=== PATIENT | male | born 1970 | race Caucasian/White ===

== ENCOUNTER 2016-09-15 01:55 | Emergency (ER) | payer MEDICARE ==
[~2016-09-15] VITALS: Ht 175.3 cm; Wt 63.5 kg
[2016-09-15 02:01] VITALS: BP 93/63
[2016-09-15] MEDS ORDERED: PROCHLORPERAZINE 10 MG/2 ML VIAL. IV ONE (03:00)
[2016-09-15] MEDS ORDERED: DIPHENHYDRAMINE 50 MG/ML VIAL IVP ONE (03:00)
--- NOTE | 2016-09-15 03:07 | RAD ---
CT head without contrast: Reason for examination: Headache with blurry vision. Axial images were obtained through the brain. No contrast was administered. Exposure: One or more of the following individualized dose reduction techniques were used for this examination: 1. Automated exposure control. 2. Adjustment of the mA and/or kV according to patient size. 3. Use of iterative reconstruction technique. Ventricular systems are symmetric and not abnormally dilated. No midline shift is seen. There is no evidence of intracranial hemorrhage, infarct, mass or edema. No abnormalities are seen in the orbits. The paranasal sinuses and mastoid air cells are clear. No acute skull abnormality is seen. Impression: No acute intracranial abnormality evident. Electronically signed by: Le Baker MD (Sep 15, 2016 03:06:52)
[2016-09-15 03:22] LABS: BASO % 0 % (0-3); EOS % 2 % (0-3); HEMATOCRIT 30.7 % (39.0-53.0); HEMOGLOBIN 9.6 g/dL (13.0-17.5); LYMPH # 1.8 x10^3/uL (1.0-4.8); LYMPH % 29 % (24-48); MEAN CORPUSCULAR HEMOGLOBIN 23 pg (25-35); MEAN CORPUSCULAR HGB CONC 31 g/dL (31-37); MEAN CORPUSCULAR VOLUME 75 fL (79-100); MONO % 7 % (0-9); NEUT % 62 % (31-73); PLATELET COUNT 209 x10^3/uL (140-400); RED BLOOD COUNT 4.11 x10^6/uL (4.30-5.70); RED CELL DISTRIBUTION WIDTH 17.6 % (11.5-14.5)
[2016-09-15 03:24] LABS: CALCIUM 8.4 mg/dL (8.5-10.1); CREATININE 0.8 mg/dL (0.7-1.3); GFR 103.6; POTASSIUM 3.7 mmol/L (3.5-5.1)
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
[2016-09-15 03:30] LABS: ALBUMIN 3.4 g/dL (3.4-5.0); ALBUMIN/GLOBULIN RATIO 1.1 (1.0-1.7); TOTAL BILIRUBIN 0.4 mg/dL (0.2-1.0); TOTAL PROTEIN 6.6 g/dL (6.4-8.2)
[2016-09-15 03:35] LABS: BARBITURATES NEG (NEG); BENZODIAZEPINES NEG (NEG); CANNABINOIDS NEG (NEG); COCAINE NEG (NEG); METHADONE NEG (NEG); OPIATES NEG (NEG); PHENCYCLIDINE NEG (NEG)
[2016-09-15 03:36] LABS: ETHANOL, URINE NEG (NEG)
[2016-09-15] MEDS ORDERED: INSULIN REGULAR 100 UNIT/ML 10ML VIAL. SQ ONE (04:30)
[2016-09-15] MEDS ORDERED: INSULIN ASPART 100 UNIT/ML 10ML VIAL. SQ ONE (04:30)
[2016-09-15] MEDS ORDERED: INSULIN ASPART 300 UNITS/3 ML INSULN.PEN SQ SCH (07:30)
--- NOTE | 2016-09-15 07:59 | RAD ---
Indication: Short of breath. Technique: Upright portable chest radiograph was obtained. No comparison is available. Findings: The lungs are clear. The cardiopulmonary silhouette is within normal limits. The bony structures are intact. Leads overlie the patient. Impression: No active pulmonary disease.
--- NOTE | 2016-09-15 11:18 | EKG ---
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
== END 2016-09-15 04:44 | disposition home or self-care (01) ==
LOC: ER 01:55
DX: F15.10 Other stimulant abuse, uncomplicated (principal); H53.8 Other visual disturbances; R05 Cough; R51 Headache; R06.02 Shortness of breath; F32.9 Major depressive disorder, single episode, unspecified; E11.9 Type 2 diabetes mellitus without complications; F20.9 Schizophrenia, unspecified; F41.9 Anxiety disorder, unspecified; Z88.0 Allergy status to penicillin; Z90.49 Acquired absence of other specified parts of digestive tract
CPT/HCPCS: 36415; 70450; 71010; 80053; 84484; 85027; 93005; G0481; J0780; J1200; J1815; 99285-25

== ENCOUNTER 2016-09-15 05:56 | Inpatient (IN) | payer MEDICARE, MEDICAID ==
[~2016-09-15] VITALS: Ht 180.3 cm; Wt 64.9 kg
--- NOTE | 2016-09-15 06:25 | PHYS DOC ---
Past Medical History Past Medical History: Anxiety, Depression, Diabetes-Type II, Schizophrenia Additional Past Medical Histor: panic attacks blood clots in liver Past Surgical History: Cholecystectomy, Tonsillectomy Alcohol Use: Occasionally Drug Use: None Adult General Chief Complaint Chief Complaint: OVERDOSE HPI HPI Patient is a 46 year old male who presents with AMS secondary to reported seroquel overdose. Patient was seen overnight for a number of complaints (see prior note). He was discharged after full work up including CT head, CXR, labs. Once in the lobby patient says he took 800mg seroquel and since then has had altered mental status. He was to go [facility] but was too intoxicated to be accepted. He therefore returns to the ED. He denies any attempt to hurt himself, only stating that he simply wants to go to sleep. Aside from symptoms he voiced during prior visit, no acute complaints. Review of Systems Review of Systems Constitutional: Denies fever or chills Eyes: Blurry vision. Denies eye pain HENT: Denies nasal congestion or sore throat Respiratory: Denies cough or shortness of breath Cardiovascular: Denies chest pain GI: Denies abdominal pain, nausea, vomiting, bloody stools or diarrhea : Denies dysuria or hematuria Musculoskeletal: Denies back pain or joint pain Integument: Denies rash or skin lesions Neurologic: Dizzy, mild headache. Denies focal weakness or sensory changes Allergies Allergies Allergies Coded Allergies Type Severity Reaction Last Updated Verified Penicillins Allergy Intermediate 09/15/16 Yes Physical Exam Physical Exam Constitutional: Well developed, well nourished, no acute distress, non-toxic appearance HENT: Normocephalic, atraumatic, bilateral external ears normal Eyes: PERRL, EOMI, conjunctiva normal, no discharge Neck: Normal range of motion, no stridor Cardiovascular: Heart rate normal, regular rhythm, no murmur Lungs & Thorax: Bilateral breath sounds clear to auscultation Abdomen: Bowel sounds normal, soft, non-distended, no TTP Skin: Warm, dry, no erythema, no rash Extremities: No obvious deformity, no edema Neurologic: Somnolent but arousable, oriented X 3, GCS 14 (point off for closed eyes), CN II-XII grossly intact, slurred speech, strength intact and symmetrical throughout, sensation to light touch intact throughout Current Patient Data Vital Signs Vital Signs Date Time Temp Pulse Resp B/P Pulse Ox O2 Delivery O2 Flow Rate FiO2 09/15/16 06:32 84 16 106/66 96 Room Air 09/15/16 06:19 97.8 97.8 Lab Values Laboratory Tests Test 09/15/16 06:17 Urine Opiates Screen Neg (NEG) Urine Methadone Screen Neg (NEG) Urine Barbiturates Neg (NEG) Urine Phencyclidine Screen Neg (NEG) Urine Amphetamine/Methamphetamine Pos (NEG) Urine Benzodiazepines Screen Neg (NEG) Urine Cocaine Screen Neg (NEG) Urine Cannabinoids Screen Neg (NEG) Urine Ethyl Alcohol Neg (NEG) EKG EKG EKG (my read): sinus rhythm, rate 88, normal axis, QTc 493ms, nonspecific ST changes Radiology/Procedures Radiology/Procedures [] Course & Med Decision Making Course & Med Decision Making Pertinent Labs and Imaging studies reviewed. (See chart for details) Patient is 46 year old male who presents with AMS. Apparently due to seroquel overdose. Already had imaging, labs done overnight at previous encounter. Will obtain EKG, acetaminophen and salicylate levels, repeat urine drug screen. Will need admission for further monitoring. Discussed with Dr. Morris, will admit under her care for further evaluation and treatment. Dragon Disclaimer Dragon Disclaimer This electronic medical record was generated, in whole or in part, using a voice recognition dictation system. Departure Departure Impression: Primary Impression: Altered mental status Additional Impression: Overdose Disposition: ADMITTED INPATIENT Admitting Physician: Giovanni Morris Condition: STABLE Referrals: NO PCP (PCP) Problem Qualifiers SHRUTHI DAWSON MD Sep 15, 2016 06:25
[2016-09-15 06:42] LABS: BARBITURATES NEG (NEG); BENZODIAZEPINES NEG (NEG); CANNABINOIDS NEG (NEG); COCAINE NEG (NEG); METHADONE NEG (NEG); OPIATES NEG (NEG); PHENCYCLIDINE NEG (NEG)
[2016-09-15 06:43] LABS: ETHANOL, URINE NEG (NEG)
[2016-09-15] MEDS ORDERED: ACETAMINOPHEN 325 MG TABLET. PO PRN (06:45)
[2016-09-15] MEDS ORDERED: DEXTROSE 50% 25 GM / 50ML DISP.SYRIN. IV PRN (06:45)
[2016-09-15] MEDS: INSULIN ASPART 300 UNITS/3 ML INSULN.PEN SQ SCH ×3 (07:57→17:59)
[2016-09-15 09:43] LABS: ETHANOL < 10 mg/dL (0-10)
[2016-09-15] MEDS ORDERED: INFLUENZA VAX SCREEN BY RX. MC ONE (11:00)
--- NOTE | 2016-09-15 11:18 | EKG ---
[facility] [address] [place] [address] Test Date: 2016-09-15 Test Time: 06:16:26 Pat Name: GEOFF COTTON Department: Room: [facility] Gender: M [place] Applier: KATYA EMT : 1970 Requested By: SHRUTHI DAWSON Order Number: [id number] Reading MD: Annel Cowan Measurements Intervals [place] Rate: 88 P: 66 MS: 178 QRS: 83 QRSD: 102 T: 50 QT: 404 QTc: 493 Interpretive Statements SINUS RHYTHM PREMATURE VENTRICULAR CONTRACTIONS LEFT ATRIAL ABNORMALITY ABNORMAL ECG RI6.01 No previous ECG available for comparison Electronically Signed On 09-15-2016 15:21:15 CDT by Annel Cowan
[2016-09-15 15:00] VITALS: BP 115/73
[2016-09-15] MEDS ORDERED: LORAZEPAM 2 MG/ML VIAL IV ONE (18:15)
[2016-09-15 19:10] VITALS: BP 107/75
[2016-09-15] MEDS ORDERED: LORAZEPAM 1 MG TABLET. PO PRN (19:30)
[2016-09-15 23:01] VITALS: BP 116/68
[2016-09-16 03:30] VITALS: BP 108/68
[2016-09-16 07:00] VITALS: BP 111/69
[2016-09-16] MEDS: INSULIN ASPART 300 UNITS/3 ML INSULN.PEN SQ SCH ×3 (08:00→17:36)
--- NOTE | 2016-09-16 10:59 | PDOC1 ---
History and Physical Date of Admission Date of Admission DATE: 09/16/16 TIME: 10:50 History of Present Illness History of Present Illness Patient is a 46 year old male admit w/ AMS secondary to reported seroquel overdose. UDS showed amphetamine he is not very helpful with history, cannot remember some meds or doses he would like to go to [facility], and he needs help and time for psych meds to take effect he has not other complaint he cannot deny that he was trying to hurt himself taking too much seroquel Past Medical History Psych: Bipolar, Depression, Other (schizotypal) Family History Family History: Family History Unknown Social History Smoke: 1 pack per day ALCOHOL: none Current Problem List Problem List Problems Medical Problems: (1) Altered mental status Status: Acute (2) Overdose Status: Acute Problems: Current Medications Current Medications Current Medications Acetaminophen (Tylenol) 650 mg PRN Q4HRS PRN PO FEVER; Start 09/15/16 at 06:45 ; Stop 09/16/16 at 06:44; Status DC Insulin Aspart (Novolog) 0-7 UNITS TIDWMEALS SQ Last administered on 09/15/16t 17:59; Start 09/15/16 at 08:00 Dextrose 12.5 gm PRN Q15MIN PRN IV SEE COMMENTS; Start 09/15/16 at 06:45 Info (Do NOT chart on this placeholder) 1 each 1X ONCE MC ; Start 09/15/16 at 11:00; Stop 09/15/16 at 11:06; Status DC Lorazepam (Ativan) 2 mg 1X ONCE IV ; Start 09/15/16 at 18:15; Stop 09/15/16 at 18:16; Status DC Lorazepam (Ativan) 2 mg 1X PRN PRN PO AGITATION; Start 09/15/16 at 19:30 Allergies Allergies: Coded Allergies: Penicillins (Verified Allergy, Intermediate, 09/15/16) ROS General: No: Appetite, Chills, Fatigue, Malaise, Night Sweats, Other PSYCHOLOGICAL ROS: YES: Anxiety Eyes: No Blurry vision, No Decreased vision, No Double vision, No Dry eyes, No Excessive tearing, No Eye Pain, No Itchy Eyes, No Loss of vision, No Other, No Photophobia, No Scotomata, No Uses contacts, No Uses glasses HEENT: YES: Heacaches, No: Epistaxis, Hearing change, Nasal congestion, Nasal discharge, Oral lesions, Other, Sinus pain, Sneezing, Snoring, Sore Throat, Tinnitus, Vertigo, Visual Changes, Vocal changes Gastrointestinal: Yes Nausea, No Abdominal Pain, No Constipation, No Diarrhea, No Hematochezia, No Melena, No Other, No Vomiting Genitourinary: No , No , No , No , No , No , No , No Discharge, No Dysuria, No Flank Pain, No Frequency, No Hematuria, No Incontinence, No Other, No Pain, No Retention, No Urgency Musculoskeletal: No Gait Disturbance, No Joint Pain, No Joint Stiffness, No Joint Swelling, No Muscle Pain, No Muscular Weakness, No Other, No Pain In:, No Swelling In: Neurological: No Behavorial Changes, No Bowel/Bladder ControlChng, No Confusion , No Dizziness, No Gait Disturbance, No Headaches, No Impaired Coord/balance, No Memory Loss, No Numbness/Tingling, No Other, No Seizures, No Speech Problems , No Tremors, No Visual Changes, No Weakness Skin: No Acne, No Dry Skin, No Eczema, No Hair Changes, No Lumps, No Mole Changes, No Mottling, No Nail Changes, No Other, No Pruritus, No Rash, No Skin Lesion Changes Physical Exam General: Alert, Oriented X3, Cooperative, No acute distress HEENT: Atraumatic, PERRLA Lungs: Clear to auscultation Heart: S1S2, no murmurs Abdomen: Soft Extremities: No edema Skin: No rashes Neuro: Normal tone Psych/Mental Status: Mood NL Vitals Vitals Vital Signs Date Time Temp Pulse Resp B/P Pulse Ox O2 Delivery O2 Flow Rate FiO2 09/16/16 07:00 98.0 72 18 111/69 97 Room Air 98.0 Labs Labs Laboratory Tests Test 09/15/16 06:17 09/15/16 06:25 09/15/16 12:23 09/15/16 17:07 Urine Opiates Screen Neg (NEG) Urine Methadone Screen Neg (NEG) Urine Barbiturates Neg (NEG) Urine Phencyclidine Screen Neg (NEG) Urine Amphetamine/Methamphetamine Pos (NEG) Urine Benzodiazepines Screen Neg (NEG) Urine Cocaine Screen Neg (NEG) Urine Cannabinoids Screen Neg (NEG) Urine Ethyl Alcohol Neg (NEG) Salicylates Level < 2.8mg/dL (2.8-20.0) Salicylate Last Dose Date Unknown Salicylate Last Dose Time Unknown Acetaminophen Level < 2mcg/ml (10-30) Acetaminophen Last Dose Date Unknown Acetaminophen Last Dose Time Unknown Ethyl Alcohol Level < 10mg/dL (0-10) Glucose (Fingerstick) 76mg/dL (70-99) 300mg/dL (70-99) Test 09/15/16 20:31 09/16/16 06:58 Glucose (Fingerstick) 168mg/dL (70-99) 265mg/dL (70-99) Laboratory Tests Test 09/15/16 12:23 09/15/16 17:07 09/15/16 20:31 09/16/16 06:58 Glucose (Fingerstick) 76mg/dL (70-99) 300mg/dL (70-99) 168mg/dL (70-99) 265mg/dL (70-99) VTE Prophylaxis Ordered VTE Prophylaxis Devices: No VTE Pharmacological Prophylaxi: No Assessment/Plan Assessment/Plan seroquel overdose, intentional, he cannot explain as not suicide, he wants to be admitted as Psych inpatient, PAT team eval on 1:1 Bipolar and schizoaffective Dm1, poor control, mealtime, levemir and SSI admit, needs clearnace, labs and urine ordered he feels well JAMIL Dennis AM, MD Sep 16, 2016 10:59
[2016-09-16 11:00] VITALS: BP 111/66
[2016-09-16 11:55] LABS: BASO % 0 % (0-3); EOS % 2 % (0-3); HEMATOCRIT 32.7 % (39.0-53.0); LYMPH # 1.2 x10^3/uL (1.0-4.8); LYMPH % 27 % (24-48); MEAN CORPUSCULAR HEMOGLOBIN 23 pg (25-35); MEAN CORPUSCULAR HGB CONC 31 g/dL (31-37); MEAN CORPUSCULAR VOLUME 75 fL (79-100); MONO % 6 % (0-9); NEUT % 64 % (31-73); PLATELET COUNT 212 x10^3/uL (140-400); RED BLOOD COUNT 4.36 x10^6/uL (4.30-5.70); RED CELL DISTRIBUTION WIDTH 18.4 % (11.5-14.5); WHITE BLOOD COUNT 4.5 x10^3/uL (4.0-11.0)
[2016-09-16 12:16] LABS: ALBUMIN 3.1 g/dL (3.4-5.0); ALBUMIN/GLOBULIN RATIO 0.9 (1.0-1.7); CALCIUM 8.5 mg/dL (8.5-10.1); CREATININE 0.7 mg/dL (0.7-1.3); GFR 120.9; POTASSIUM 4.5 mmol/L (3.5-5.1); TOTAL BILIRUBIN 0.3 mg/dL (0.2-1.0); TOTAL PROTEIN 6.6 g/dL (6.4-8.2)
[2016-09-16] MEDS: INSULIN DETEMIR 300 UNITS/3 ML INSULN.PEN. SQ SCH (12:28)
--- NOTE | 2016-09-16 14:09 | PDOC ---
PROGRESS NOTES Chief Complaint Chief Complaint overdose bipolar, schizoaffective DM1 History of Present Illness History of Present Illness Discussed with PAT team, pt wants inpatient psych tx Vitals Vitals Vital Signs Date Time Temp Pulse Resp B/P Pulse Ox O2 Delivery O2 Flow Rate FiO2 09/16/16 11:00 98.2 77 18 111/66 96 Room Air 98.2 Physical Exam General: Alert, Oriented X3 Heart: Regular rate Lungs: Clear, Wheezing Abdomen: Normal bowel sounds, Soft Extremities: No clubbing, No cyanosis Skin: No breakdown Labs LABS Laboratory Tests Test 09/15/16 17:07 09/15/16 20:31 09/16/16 06:58 09/16/16 10:53 Glucose (Fingerstick) 300mg/dL (70-99) 168mg/dL (70-99) 265mg/dL (70-99) 340mg/dL (70-99) Test 09/16/16 11:15 White Blood Count 4.5x10^3/uL (4.0-11.0) Red Blood Count 4.36x10^6/uL (4.30-5.70) Hemoglobin 10.0g/dL (13.0-17.5) Hematocrit 32.7% (39.0-53.0) Mean Corpuscular Volume 75fL (79-100) Mean Corpuscular Hemoglobin 23pg (25-35) Mean Corpuscular Hemoglobin Concent 31g/dL (31-37) Red Cell Distribution Width 18.4% (11.5-14.5) Platelet Count 212x10^3/uL (140-400) Neutrophils (%) (Auto) 64% (31-73) Lymphocytes (%) (Auto) 27% (24-48) Monocytes (%) (Auto) 6% (0-9) Eosinophils (%) (Auto) 2% (0-3) Basophils (%) (Auto) 0% (0-3) Neutrophils # (Auto) 2.9x10^3uL (1.8-7.7) Lymphocytes # (Auto) 1.2x10^3/uL (1.0-4.8) Monocytes # (Auto) 0.3x10^3/uL (0.0-1.1) Eosinophils # (Auto) 0.1x10^3/uL (0.0-0.7) Basophils # (Auto) 0.0x10^3/uL (0.0-0.2) Sodium Level 141mmol/L (136-145) Potassium Level 4.5mmol/L (3.5-5.1) Chloride Level 104mmol/L (98-107) Carbon Dioxide Level 29mmol/L (21-32) Anion Gap 8 (6-14) Blood Urea Nitrogen 13mg/dL (8-26) Creatinine 0.7mg/dL (0.7-1.3) Estimated GFR (Cockcroft-Gault) 120.9 BUN/Creatinine Ratio 19 (6-20) Glucose Level 269mg/dL (70-99) Calcium Level 8.5mg/dL (8.5-10.1) Total Bilirubin 0.3mg/dL (0.2-1.0) Aspartate Amino Transf (AST/SGOT) 29U/L (15-37) Alanine Aminotransferase (ALT/SGPT) 45U/L (16-63) Alkaline Phosphatase 95U/L (46-116) Total Protein 6.6g/dL (6.4-8.2) Albumin 3.1g/dL (3.4-5.0) Albumin/Globulin Ratio 0.9 (1.0-1.7) Review of Systems Review of Systems NO NV/D Assessment and Plan Assessmemt and Plan Problems Medical Problems: (1) Altered mental status Status: Acute (2) Overdose Status: Acute Problems: Comment Review of Relevant I have reviewed the following items oli (where applicable) has been applied. Labs Laboratory Tests Test 09/15/16 06:17 09/15/16 06:25 09/15/16 12:23 09/15/16 17:07 Urine Opiates Screen Neg (NEG) Urine Methadone Screen Neg (NEG) Urine Barbiturates Neg (NEG) Urine Phencyclidine Screen Neg (NEG) Urine Amphetamine/Methamphetamine Pos (NEG) Urine Benzodiazepines Screen Neg (NEG) Urine Cocaine Screen Neg (NEG) Urine Cannabinoids Screen Neg (NEG) Urine Ethyl Alcohol Neg (NEG) Salicylates Level < 2.8mg/dL (2.8-20.0) Salicylate Last Dose Date Unknown Salicylate Last Dose Time Unknown Acetaminophen Level < 2mcg/ml (10-30) Acetaminophen Last Dose Date Unknown Acetaminophen Last Dose Time Unknown Ethyl Alcohol Level < 10mg/dL (0-10) Glucose (Fingerstick) 76mg/dL (70-99) 300mg/dL (70-99) Test 09/15/16 20:31 09/16/16 06:58 09/16/16 10:53 09/16/16 11:15 Glucose (Fingerstick) 168mg/dL (70-99) 265mg/dL (70-99) 340mg/dL (70-99) White Blood Count 4.5x10^3/uL (4.0-11.0) Red Blood Count 4.36x10^6/uL (4.30-5.70) Hemoglobin 10.0g/dL (13.0-17.5) Hematocrit 32.7% (39.0-53.0) Mean Corpuscular Volume 75fL (79-100) Mean Corpuscular Hemoglobin 23pg (25-35) Mean Corpuscular Hemoglobin Concent 31g/dL (31-37) Red Cell Distribution Width 18.4% (11.5-14.5) Platelet Count 212x10^3/uL (140-400) Neutrophils (%) (Auto) 64% (31-73) Lymphocytes (%) (Auto) 27% (24-48) Monocytes (%) (Auto) 6% (0-9) Eosinophils (%) (Auto) 2% (0-3) Basophils (%) (Auto) 0% (0-3) Neutrophils # (Auto) 2.9x10^3uL (1.8-7.7) Lymphocytes # (Auto) 1.2x10^3/uL (1.0-4.8) Monocytes # (Auto) 0.3x10^3/uL (0.0-1.1) Eosinophils # (Auto) 0.1x10^3/uL (0.0-0.7) Basophils # (Auto) 0.0x10^3/uL (0.0-0.2) Sodium Level 141mmol/L (136-145) Potassium Level 4.5mmol/L (3.5-5.1) Chloride Level 104mmol/L (98-107) Carbon Dioxide Level 29mmol/L (21-32) Anion Gap 8 (6-14) Blood Urea Nitrogen 13mg/dL (8-26) Creatinine 0.7mg/dL (0.7-1.3) Estimated GFR (Cockcroft-Gault) 120.9 BUN/Creatinine Ratio 19 (6-20) Glucose Level 269mg/dL (70-99) Calcium Level 8.5mg/dL (8.5-10.1) Total Bilirubin 0.3mg/dL (0.2-1.0) Aspartate Amino Transf (AST/SGOT) 29U/L (15-37) Alanine Aminotransferase (ALT/SGPT) 45U/L (16-63) Alkaline Phosphatase 95U/L (46-116) Total Protein 6.6g/dL (6.4-8.2) Albumin 3.1g/dL (3.4-5.0) Albumin/Globulin Ratio 0.9 (1.0-1.7) Laboratory Tests Test 09/15/16 17:07 09/15/16 20:31 09/16/16 06:58 09/16/16 10:53 Glucose (Fingerstick) 300mg/dL (70-99) 168mg/dL (70-99) 265mg/dL (70-99) 340mg/dL (70-99) Test 09/16/16 11:15 White Blood Count 4.5x10^3/uL (4.0-11.0) Red Blood Count 4.36x10^6/uL (4.30-5.70) Hemoglobin 10.0g/dL (13.0-17.5) Hematocrit 32.7% (39.0-53.0) Mean Corpuscular Volume 75fL (79-100) Mean Corpuscular Hemoglobin 23pg (25-35) Mean Corpuscular Hemoglobin Concent 31g/dL (31-37) Red Cell Distribution Width 18.4% (11.5-14.5) Platelet Count 212x10^3/uL (140-400) Neutrophils (%) (Auto) 64% (31-73) Lymphocytes (%) (Auto) 27% (24-48) Monocytes (%) (Auto) 6% (0-9) Eosinophils (%) (Auto) 2% (0-3) Basophils (%) (Auto) 0% (0-3) Neutrophils # (Auto) 2.9x10^3uL (1.8-7.7) Lymphocytes # (Auto) 1.2x10^3/uL (1.0-4.8) Monocytes # (Auto) 0.3x10^3/uL (0.0-1.1) Eosinophils # (Auto) 0.1x10^3/uL (0.0-0.7) Basophils # (Auto) 0.0x10^3/uL (0.0-0.2) Sodium Level 141mmol/L (136-145) Potassium Level 4.5mmol/L (3.5-5.1) Chloride Level 104mmol/L (98-107) Carbon Dioxide Level 29mmol/L (21-32) Anion Gap 8 (6-14) Blood Urea Nitrogen 13mg/dL (8-26) Creatinine 0.7mg/dL (0.7-1.3) Estimated GFR (Cockcroft-Gault) 120.9 BUN/Creatinine Ratio 19 (6-20) Glucose Level 269mg/dL (70-99) Calcium Level 8.5mg/dL (8.5-10.1) Total Bilirubin 0.3mg/dL (0.2-1.0) Aspartate Amino Transf (AST/SGOT) 29U/L (15-37) Alanine Aminotransferase (ALT/SGPT) 45U/L (16-63) Alkaline Phosphatase 95U/L (46-116) Total Protein 6.6g/dL (6.4-8.2) Albumin 3.1g/dL (3.4-5.0) Albumin/Globulin Ratio 0.9 (1.0-1.7) Medications Current Medications Acetaminophen (Tylenol) 650 mg PRN Q4HRS PRN PO FEVER; Start 09/15/16 at 06:45 ; Stop 09/16/16 at 06:44; Status DC Insulin Aspart (Novolog) 0-7 UNITS TIDWMEALS SQ Last administered on 09/15/16t 17:59; Start 09/15/16 at 08:00; Stop 09/16/16 at 11:02; Status DC Dextrose 12.5 gm PRN Q15MIN PRN IV SEE COMMENTS; Start 09/15/16 at 06:45 Info (Do NOT chart on this placeholder) 1 each 1X ONCE MC ; Start 09/15/16 at 11:00; Stop 09/15/16 at 11:06; Status DC Lorazepam (Ativan) 2 mg 1X ONCE IV ; Start 09/15/16 at 18:15; Stop 09/15/16 at 18:16; Status DC Lorazepam (Ativan) 2 mg 1X PRN PRN PO AGITATION; Start 09/15/16 at 19:30 Insulin Aspart (Novolog) 10 units TIDAC SQ Last administered on 09/16/16 12:27 ; Start 09/16/16 at 11:30 Insulin Detemir (Levemir) 12 units DAILY10 SQ Last administered on 09/16/16 12 :28; Start 09/16/16 at 11:00 Vitals/I & O Vital Sign - Last 24 Hours 09/15/16 09/15/16 09/15/16 09/16/16 15:00 19:10 23:01 03:30 Temp 99.7 98.1 97.9 99.7 98.1 97.9 Pulse 90 76 70 63 Resp B/P 115/73 107/75 116/68 108/68 Pulse Ox 98 98 97 99 O2 Delivery Room Air Room Air Room Air Room Air 09/16/16 09/16/16 09/16/16 07:00 08:00 11:00 Temp 98.0 98.2 98.0 98.2 Pulse 72 77 Resp B/P 111/69 111/66 Pulse Ox 97 96 O2 Delivery Room Air Room Air Room Air Intake and Output 09/15/16 09/15/16 09/16/16 15:00 23:00 07:00 Intake Total 2040 ml 750 ml Balance 2040 ml 750 ml JAMIL CAMARGO MD Sep 16, 2016 14:09
[2016-09-16 15:00] VITALS: BP 108/71
[2016-09-16 15:37] LABS: % SAT IRON 12 % (15-34); IRON,SERUM 40 ug/dL (65-175)
[2016-09-16 15:44] LABS: BILIRUBIN,URINE NEGATIVE (NEG); GLUCOSE,URINE 100 mg/dL (NEG); NITRITE,URINE NEGATIVE (NEG); PROTEIN,URINE NEGATIVE (NEG-TRACE)
[2016-09-16 16:03] LABS: BACTERIA,URINE 0 /HPF (0-FEW); RBC,URINE 0 /HPF (0-2); WBC,URINE 0 /HPF (0-4)
[2016-09-16 19:00] VITALS: BP 113/67
[2016-09-16] MEDS ORDERED: PNEUMOCOCCAL VAX SCREEN BY RX. MC ONE (22:30)
[2016-09-16] MEDS ORDERED: INFLUENZA VAX SCREEN BY RX. MC ONE (22:30)
[2016-09-16 22:53] VITALS: BP 110/69
[2016-09-17 03:00] VITALS: BP 111/67
--- NOTE | 2016-09-17 05:35 | ACF ---
Admission Forms Criteria MENTAL STATUS CHANGE Clinical Indications for Inpatient Care (Place 'X' for any and all applicable criteria): Ongoing inpatient care may be needed for ANY ONE of the following(1)(2)(3)(5)(6) : [X]I. Suspected serious etiology (eg, medical disorder, [employer] event) of mental status change [ ]II. Danger to self or others not manageable at lower level of care [ ]III. Grave disability (eg, inability to perform self care necessary at lower level of care) [ ]IV. Agitation or inappropriate behavior interfering with care for primary condition (eg, attempting to discontinue lines or drains prematurely, unable to cooperate with respiratory care) [ ]V. Delirium [A] [D][E] as described by ANY ONE of the following(26): [ ]a) Delirium due to alcohol or sedative [F] withdrawal [ ]b) Delirium of uncertain etiology that has not responded to appropriate empiric treatment [ ]c) Delirium that prevents performance of a life-sustaining function (eg, feeding or hydrating oneself) [ ]. General contraindications and/or Inappropriate clinical situations for Observational Care in patients with Mental Status Change, when ANY ONE of the following is required: [ ]a) Prediction of prolongation of LOS based on ANY ONE of the following may be considered as a contraindication for observational care 2, 3, 4, 5, 6, 7, 8, 9, 10, 11 [ ]i) Age > 65 yrs. [ ]ii) Patient arriving by ambulance [ ]iii) Patient with high acuity [ ]iv) Patient requiring vital sign monitoring [ ]v) Patient on IV medication [ ]b) Systolic blood pressures 180mmHg 3,12 [ ]c) Patient with altered mental status including delirium and other alteration of consciousness, (3) [ ]d) Patient whose discharge disposition will be to a detention home or rehabilitation home should not be managed in Emergency Department Observation Unit. CMS rule requires 3 days hospital stay before such placement.3,13 [ ]e) Patient with failure to thrive due to broad array of etiologies 3,16,17 [ ]f) Inability to ambulate 3,14 Extended stay beyond goal length of stay for the primary condition may be needed until ALL of the following are present(3)(5): [ ]a) Underlying medical etiology of mental status change is absent, or has been established and adequately treated [ ]b) Danger to self or others is absent or manageable at lower level of care. [ ]c) Behavior crisis management, including physical or chemical restraints, is not required or available at lower level of car [ ]d) Substance or alcohol withdrawal is absent or manageable at lower level of care. [ ]e) Behavioral symptoms (eg, agitation, somnolence, inappropriate behavior) are absent, or are manageable at lower level of care. The original [facility] content created by [facility] has been revised. The portions of the content which have been revised are identified through the use of italic text or in bold, and [facility] has neither reviewed nor approved the modified material. All other unmodified content is copyright [facility]. Please see references footnoted in the original [facility] edition 2016 Admission Criteria Met?: Yes SHELTON VALDOVINOS Sep 17, 2016 05:34
[2016-09-17 07:00] VITALS: BP 112/66
[2016-09-17] MEDS: INSULIN ASPART 300 UNITS/3 ML INSULN.PEN SQ SCH ×2 (08:00→12:02)
[2016-09-17] MEDS ORDERED: PNEUMOC CONJ VACC 23-VALENT 0.5 ML VIAL. VAX IM ONE (09:00)
[2016-09-17] MEDS ORDERED: FLU VACC QUAD 2016-17 (36MOS+)/PF 0.5 ML SYRINGE. VAX IM ONE (09:00)
[2016-09-17] MEDS ORDERED: NICOTINE 21MG PATCH. TD PRN (09:15)
[2016-09-17] MEDS ORDERED: NICOTINE POLACRILEX 2MG GUM PACKAGE of 12. BC PRN (09:15)
[2016-09-17] MEDS ORDERED: IRON POLYSACCHARIDE COMPLEX 150 MG CAPSULE PO SCH (09:30)
--- NOTE | 2016-09-17 09:52 | PDOC ---
PROGRESS NOTES Chief Complaint Chief Complaint intentional overdose, suicide attempt bipolar 2 disorder, schizoaffective DM1 microcytic anemia tobacco use methamphetamine pos urine on admit History of Present Illness History of Present Illness feels better no current complaint tobacco replacement ordered Pt is medically cleared to transfer to inpatient Psych facility. will need outpatient f/u of DM1, would benefit from lisinopril for renal protection Iron PO supplement started, he should get screening colonoscopy when he is mentally stable to do so DC order placed Vitals Vitals Vital Signs Date Time Temp Pulse Resp B/P Pulse Ox O2 Delivery O2 Flow Rate FiO2 09/17/16 08:00 Room Air 09/17/16 07:00 97.8 55 18 112/66 97 97.8 Physical Exam General: Alert, Oriented X3, Cooperative, No acute distress Heart: Regular rate Lungs: Clear, Wheezing Abdomen: Soft Extremities: No edema Skin: No rashes Labs LABS Laboratory Tests Test 09/16/16 10:53 09/16/16 11:15 09/16/16 15:00 09/16/16 19:51 Glucose (Fingerstick) 340mg/dL (70-99) 107mg/dL (70-99) White Blood Count 4.5x10^3/uL (4.0-11.0) Red Blood Count 4.36x10^6/uL (4.30-5.70) Hemoglobin 10.0g/dL (13.0-17.5) Hematocrit 32.7% (39.0-53.0) Mean Corpuscular Volume 75fL (79-100) Mean Corpuscular Hemoglobin 23pg (25-35) Mean Corpuscular Hemoglobin Concent 31g/dL (31-37) Red Cell Distribution Width 18.4% (11.5-14.5) Platelet Count 212x10^3/uL (140-400) Neutrophils (%) (Auto) 64% (31-73) Lymphocytes (%) (Auto) 27% (24-48) Monocytes (%) (Auto) 6% (0-9) Eosinophils (%) (Auto) 2% (0-3) Basophils (%) (Auto) 0% (0-3) Neutrophils # (Auto) 2.9x10^3uL (1.8-7.7) Lymphocytes # (Auto) 1.2x10^3/uL (1.0-4.8) Monocytes # (Auto) 0.3x10^3/uL (0.0-1.1) Eosinophils # (Auto) 0.1x10^3/uL (0.0-0.7) Basophils # (Auto) 0.0x10^3/uL (0.0-0.2) Sodium Level 141mmol/L (136-145) Potassium Level 4.5mmol/L (3.5-5.1) Chloride Level 104mmol/L (98-107) Carbon Dioxide Level 29mmol/L (21-32) Anion Gap 8 (6-14) Blood Urea Nitrogen 13mg/dL (8-26) Creatinine 0.7mg/dL (0.7-1.3) Estimated GFR (Cockcroft-Gault) 120.9 BUN/Creatinine Ratio 19 (6-20) Glucose Level 269mg/dL (70-99) Calcium Level 8.5mg/dL (8.5-10.1) Iron Level 40ug/dL (65-175) Total Iron Binding Capacity 329ug/dL (250-450) Iron Saturation 12% (15-34) Total Bilirubin 0.3mg/dL (0.2-1.0) Aspartate Amino Transf (AST/SGOT) 29U/L (15-37) Alanine Aminotransferase (ALT/SGPT) 45U/L (16-63) Alkaline Phosphatase 95U/L (46-116) Total Protein 6.6g/dL (6.4-8.2) Albumin 3.1g/dL (3.4-5.0) Albumin/Globulin Ratio 0.9 (1.0-1.7) Urine Collection Type Unknown Urine Color Yellow Urine Clarity Cloudy Urine pH 7.0 Urine Specific Savery 1.020 Urine Protein Negativemg/dL (NEG-TRACE) Urine Glucose (UA) 100mg/dL (NEG) Urine Ketones (Stick) Negativemg/dL (NEG) Urine Blood Negative (NEG) Urine Nitrite Negative (NEG) Urine Bilirubin Negative (NEG) Urine Urobilinogen Dipstick 2.0mg/dL (0.2 mg/dL) Urine Leukocyte Esterase Negative (NEG) Urine RBC 0/HPF (0-2) Urine WBC 0/HPF (0-4) Urine Squamous Epithelial Cells None/LPF Urine Amorphous Sediment Present/HPF Urine Bacteria 0/HPF (0-FEW) Test 09/17/16 07:02 Glucose (Fingerstick) 268mg/dL (70-99) Review of Systems Review of Systems no n.v.d Assessment and Plan Assessmemt and Plan Problems Medical Problems: (1) Altered mental status Status: Acute (2) Overdose Status: Acute Problems: Comment Review of Relevant I have reviewed the following items oli (where applicable) has been applied. Labs Laboratory Tests Test 09/15/16 12:23 09/15/16 17:07 09/15/16 20:31 09/16/16 06:58 Glucose (Fingerstick) 76mg/dL (70-99) 300mg/dL (70-99) 168mg/dL (70-99) 265mg/dL (70-99) Test 09/16/16 10:53 09/16/16 11:15 09/16/16 15:00 09/16/16 19:51 Glucose (Fingerstick) 340mg/dL (70-99) 107mg/dL (70-99) White Blood Count 4.5x10^3/uL (4.0-11.0) Red Blood Count 4.36x10^6/uL (4.30-5.70) Hemoglobin 10.0g/dL (13.0-17.5) Hematocrit 32.7% (39.0-53.0) Mean Corpuscular Volume 75fL (79-100) Mean Corpuscular Hemoglobin 23pg (25-35) Mean Corpuscular Hemoglobin Concent 31g/dL (31-37) Red Cell Distribution Width 18.4% (11.5-14.5) Platelet Count 212x10^3/uL (140-400) Neutrophils (%) (Auto) 64% (31-73) Lymphocytes (%) (Auto) 27% (24-48) Monocytes (%) (Auto) 6% (0-9) Eosinophils (%) (Auto) 2% (0-3) Basophils (%) (Auto) 0% (0-3) Neutrophils # (Auto) 2.9x10^3uL (1.8-7.7) Lymphocytes # (Auto) 1.2x10^3/uL (1.0-4.8) Monocytes # (Auto) 0.3x10^3/uL (0.0-1.1) Eosinophils # (Auto) 0.1x10^3/uL (0.0-0.7) Basophils # (Auto) 0.0x10^3/uL (0.0-0.2) Sodium Level 141mmol/L (136-145) Potassium Level 4.5mmol/L (3.5-5.1) Chloride Level 104mmol/L (98-107) Carbon Dioxide Level 29mmol/L (21-32) Anion Gap 8 (6-14) Blood Urea Nitrogen 13mg/dL (8-26) Creatinine 0.7mg/dL (0.7-1.3) Estimated GFR (Cockcroft-Gault) 120.9 BUN/Creatinine Ratio 19 (6-20) Glucose Level 269mg/dL (70-99) Calcium Level 8.5mg/dL (8.5-10.1) Iron Level 40ug/dL (65-175) Total Iron Binding Capacity 329ug/dL (250-450) Iron Saturation 12% (15-34) Total Bilirubin 0.3mg/dL (0.2-1.0) Aspartate Amino Transf (AST/SGOT) 29U/L (15-37) Alanine Aminotransferase (ALT/SGPT) 45U/L (16-63) Alkaline Phosphatase 95U/L (46-116) Total Protein 6.6g/dL (6.4-8.2) Albumin 3.1g/dL (3.4-5.0) Albumin/Globulin Ratio 0.9 (1.0-1.7) Urine Collection Type Unknown Urine Color Yellow Urine Clarity Cloudy Urine pH 7.0 Urine Specific Savery 1.020 Urine Protein Negativemg/dL (NEG-TRACE) Urine Glucose (UA) 100mg/dL (NEG) Urine Ketones (Stick) Negativemg/dL (NEG) Urine Blood Negative (NEG) Urine Nitrite Negative (NEG) Urine Bilirubin Negative (NEG) Urine Urobilinogen Dipstick 2.0mg/dL (0.2 mg/dL) Urine Leukocyte Esterase Negative (NEG) Urine RBC 0/HPF (0-2) Urine WBC 0/HPF (0-4) Urine Squamous Epithelial Cells None/LPF Urine Amorphous Sediment Present/HPF Urine Bacteria 0/HPF (0-FEW) Test 09/17/16 07:02 Glucose (Fingerstick) 268mg/dL (70-99) Laboratory Tests Test 09/16/16 10:53 09/16/16 11:15 09/16/16 15:00 09/16/16 19:51 Glucose (Fingerstick) 340mg/dL (70-99) 107mg/dL (70-99) White Blood Count 4.5x10^3/uL (4.0-11.0) Red Blood Count 4.36x10^6/uL (4.30-5.70) Hemoglobin 10.0g/dL (13.0-17.5) Hematocrit 32.7% (39.0-53.0) Mean Corpuscular Volume 75fL (79-100) Mean Corpuscular Hemoglobin 23pg (25-35) Mean Corpuscular Hemoglobin Concent 31g/dL (31-37) Red Cell Distribution Width 18.4% (11.5-14.5) Platelet Count 212x10^3/uL (140-400) Neutrophils (%) (Auto) 64% (31-73) Lymphocytes (%) (Auto) 27% (24-48) Monocytes (%) (Auto) 6% (0-9) Eosinophils (%) (Auto) 2% (0-3) Basophils (%) (Auto) 0% (0-3) Neutrophils # (Auto) 2.9x10^3uL (1.8-7.7) Lymphocytes # (Auto) 1.2x10^3/uL (1.0-4.8) Monocytes # (Auto) 0.3x10^3/uL (0.0-1.1) Eosinophils # (Auto) 0.1x10^3/uL (0.0-0.7) Basophils # (Auto) 0.0x10^3/uL (0.0-0.2) Sodium Level 141mmol/L (136-145) Potassium Level 4.5mmol/L (3.5-5.1) Chloride Level 104mmol/L (98-107) Carbon Dioxide Level 29mmol/L (21-32) Anion Gap 8 (6-14) Blood Urea Nitrogen 13mg/dL (8-26) Creatinine 0.7mg/dL (0.7-1.3) Estimated GFR (Cockcroft-Gault) 120.9 BUN/Creatinine Ratio 19 (6-20) Glucose Level 269mg/dL (70-99) Calcium Level 8.5mg/dL (8.5-10.1) Iron Level 40ug/dL (65-175) Total Iron Binding Capacity 329ug/dL (250-450) Iron Saturation 12% (15-34) Total Bilirubin 0.3mg/dL (0.2-1.0) Aspartate Amino Transf (AST/SGOT) 29U/L (15-37) Alanine Aminotransferase (ALT/SGPT) 45U/L (16-63) Alkaline Phosphatase 95U/L (46-116) Total Protein 6.6g/dL (6.4-8.2) Albumin 3.1g/dL (3.4-5.0) Albumin/Globulin Ratio 0.9 (1.0-1.7) Urine Collection Type Unknown Urine Color Yellow Urine Clarity Cloudy Urine pH 7.0 Urine Specific Savery 1.020 Urine Protein Negativemg/dL (NEG-TRACE) Urine Glucose (UA) 100mg/dL (NEG) Urine Ketones (Stick) Negativemg/dL (NEG) Urine Blood Negative (NEG) Urine Nitrite Negative (NEG) Urine Bilirubin Negative (NEG) Urine Urobilinogen Dipstick 2.0mg/dL (0.2 mg/dL) Urine Leukocyte Esterase Negative (NEG) Urine RBC 0/HPF (0-2) Urine WBC 0/HPF (0-4) Urine Squamous Epithelial Cells None/LPF Urine Amorphous Sediment Present/HPF Urine Bacteria 0/HPF (0-FEW) Test 09/17/16 07:02 Glucose (Fingerstick) 268mg/dL (70-99) Medications Current Medications Acetaminophen (Tylenol) 650 mg PRN Q4HRS PRN PO FEVER; Start 09/15/16 at 06:45 ; Stop 09/16/16 at 06:44; Status DC Insulin Aspart (Novolog) 0-7 UNITS TIDWMEALS SQ Last administered on 09/15/16t 17:59; Start 09/15/16 at 08:00; Stop 09/16/16 at 11:02; Status DC Dextrose 12.5 gm PRN Q15MIN PRN IV SEE COMMENTS; Start 09/15/16 at 06:45 Info (Do NOT chart on this placeholder) 1 each 1X ONCE MC ; Start 09/15/16 at 11:00; Stop 09/15/16 at 11:06; Status DC Lorazepam (Ativan) 2 mg 1X ONCE IV ; Start 09/15/16 at 18:15; Stop 09/15/16 at 18:16; Status DC Lorazepam (Ativan) 2 mg 1X PRN PRN PO AGITATION; Start 09/15/16 at 19:30 Insulin Aspart (Novolog) 10 units TIDAC SQ Last administered on 09/17/16 08:00 ; Start 09/16/16 at 11:30 Insulin Detemir (Levemir) 12 units DAILY10 SQ Last administered on 09/16/16 12 :28; Start 09/16/16 at 11:00 Info (Do NOT chart on this placeholder) 1 each 1X ONCE MC ; Start 09/16/16 at 22:30; Stop 09/16/16 at 22:31; Status UNV Pneumococcal Polyvalent Vaccine (Do NOT chart on this placeholder) 1 each 1X ONCE MC ; Start 09/16/16 at 22:30; Stop 09/16/16 at 22:31; Status UNV Influenza Virus Vaccine Quadrival (Fluarix Quad [id number] Syringe) 0.5 ml ONCE ONCE VAX IM ; Start 09/17/16 at 09:00; Stop 09/17/16 at 09:01; Status DC Pneumococcal Polyvalent Vaccine (Pneumovax 23) 0.5 ml ONCE ONCE VAX IM ; Start 09/17/16 at 09:00; Stop 09/17/16 at 09:01; Status DC Polysaccharide Iron Complex (Niferex 150) 150 mg DAILY PO ; Start 09/17/16 at 09 :30 Nicotine (Nicoderm Cq 21mg) 1 patch PRN DAILY PRN TD SMOKING CESSATION; Start 09/17/16 at 09:15 Nicotine Polacrilex (Nicorette Gum) 1 each PRN Q1HR PRN BC SMOKING CESSATION; Start 09/17/16 at 09:15 Vitals/I & O Vital Sign - Last 24 Hours 09/16/16 09/16/16 09/16/16 09/16/16 11:00 15:00 19:00 20:05 Temp 98.2 97.9 97.9 98.2 97.9 97.9 Pulse 77 63 76 Resp 18 16 19 B/P 111/66 108/71 113/67 Pulse Ox 96 98 97 O2 Delivery Room Air Room Air Room Air Room Air 09/16/16 09/17/16 09/17/16 09/17/16 22:53 03:00 07:00 07:30 Temp 98.1 98.0 97.8 98.1 98.0 97.8 Pulse 70 75 55 Resp 18 B/P 110/69 111/67 112/66 Pulse Ox 99 98 97 O2 Delivery Room Air Room Air Room Air Room Air 09/17/16 08:00 O2 Delivery Room Air Intake and Output 09/16/16 09/16/16 09/17/16 15:00 23:00 07:00 Intake Total 1400 ml 820 ml Balance 1400 ml 820 ml JAMIL CAMARGO MD Sep 17, 2016 09:52
--- NOTE | 2016-09-17 09:56 | PDOC3 ---
Discharge Summary Visit Information Date of Admission: Sep 15, 2016 Date of Discharge: Sep 17, 2016 Admitting Diagnosis: suicide attempt Final Diagnosis intentional overdose, suicide attempt bipolar 2 disorder, schizoaffective DM1 microcytic anemia tobacco use methamphetamine pos urine on admit DC order placed Problems Medical Problems: (1) Altered mental status Status: Acute (2) Overdose Status: Acute Brief Hospital Course Allergies Allergies Coded Allergies Type Severity Reaction Last Updated Verified Penicillins Allergy Intermediate 09/15/16 Yes Vital Signs Vital Signs Date Time Temp Pulse Resp B/P Pulse Ox O2 Delivery O2 Flow Rate FiO2 09/17/16 08:00 Room Air 09/17/16 07:00 97.8 55 18 112/66 97 97.8 Lab Results Laboratory Tests Test 09/15/16 12:23 09/15/16 17:07 09/15/16 20:31 09/16/16 06:58 Glucose (Fingerstick) 76mg/dL (70-99) 300mg/dL (70-99) 168mg/dL (70-99) 265mg/dL (70-99) Test 09/16/16 10:53 09/16/16 11:15 09/16/16 15:00 09/16/16 19:51 Glucose (Fingerstick) 340mg/dL (70-99) 107mg/dL (70-99) White Blood Count 4.5x10^3/uL (4.0-11.0) Red Blood Count 4.36x10^6/uL (4.30-5.70) Hemoglobin 10.0g/dL (13.0-17.5) Hematocrit 32.7% (39.0-53.0) Mean Corpuscular Volume 75fL (79-100) Mean Corpuscular Hemoglobin 23pg (25-35) Mean Corpuscular Hemoglobin Concent 31g/dL (31-37) Red Cell Distribution Width 18.4% (11.5-14.5) Platelet Count 212x10^3/uL (140-400) Neutrophils (%) (Auto) 64% (31-73) Lymphocytes (%) (Auto) 27% (24-48) Monocytes (%) (Auto) 6% (0-9) Eosinophils (%) (Auto) 2% (0-3) Basophils (%) (Auto) 0% (0-3) Neutrophils # (Auto) 2.9x10^3uL (1.8-7.7) Lymphocytes # (Auto) 1.2x10^3/uL (1.0-4.8) Monocytes # (Auto) 0.3x10^3/uL (0.0-1.1) Eosinophils # (Auto) 0.1x10^3/uL (0.0-0.7) Basophils # (Auto) 0.0x10^3/uL (0.0-0.2) Sodium Level 141mmol/L (136-145) Potassium Level 4.5mmol/L (3.5-5.1) Chloride Level 104mmol/L (98-107) Carbon Dioxide Level 29mmol/L (21-32) Anion Gap 8 (6-14) Blood Urea Nitrogen 13mg/dL (8-26) Creatinine 0.7mg/dL (0.7-1.3) Estimated GFR (Cockcroft-Gault) 120.9 BUN/Creatinine Ratio 19 (6-20) Glucose Level 269mg/dL (70-99) Calcium Level 8.5mg/dL (8.5-10.1) Iron Level 40ug/dL (65-175) Total Iron Binding Capacity 329ug/dL (250-450) Iron Saturation 12% (15-34) Total Bilirubin 0.3mg/dL (0.2-1.0) Aspartate Amino Transf (AST/SGOT) 29U/L (15-37) Alanine Aminotransferase (ALT/SGPT) 45U/L (16-63) Alkaline Phosphatase 95U/L (46-116) Total Protein 6.6g/dL (6.4-8.2) Albumin 3.1g/dL (3.4-5.0) Albumin/Globulin Ratio 0.9 (1.0-1.7) Urine Collection Type Unknown Urine Color Yellow Urine Clarity Cloudy Urine pH 7.0 Urine Specific [place] 1.020 Urine Protein Negativemg/dL (NEG-TRACE) Urine Glucose (UA) 100mg/dL (NEG) Urine Ketones (Stick) Negativemg/dL (NEG) Urine Blood Negative (NEG) Urine Nitrite Negative (NEG) Urine Bilirubin Negative (NEG) Urine Urobilinogen Dipstick 2.0mg/dL (0.2 mg/dL) Urine Leukocyte Esterase Negative (NEG) Urine RBC 0/HPF (0-2) Urine WBC 0/HPF (0-4) Urine Squamous Epithelial Cells None/LPF Urine Amorphous Sediment Present/HPF Urine Bacteria 0/HPF (0-FEW) Test 09/17/16 07:02 Glucose (Fingerstick) 268mg/dL (70-99) Laboratory Tests Test 09/16/16 10:53 09/16/16 11:15 09/16/16 15:00 09/16/16 19:51 Glucose (Fingerstick) 340mg/dL (70-99) 107mg/dL (70-99) White Blood Count 4.5x10^3/uL (4.0-11.0) Red Blood Count 4.36x10^6/uL (4.30-5.70) Hemoglobin 10.0g/dL (13.0-17.5) Hematocrit 32.7% (39.0-53.0) Mean Corpuscular Volume 75fL (79-100) Mean Corpuscular Hemoglobin 23pg (25-35) Mean Corpuscular Hemoglobin Concent 31g/dL (31-37) Red Cell Distribution Width 18.4% (11.5-14.5) Platelet Count 212x10^3/uL (140-400) Neutrophils (%) (Auto) 64% (31-73) Lymphocytes (%) (Auto) 27% (24-48) Monocytes (%) (Auto) 6% (0-9) Eosinophils (%) (Auto) 2% (0-3) Basophils (%) (Auto) 0% (0-3) Neutrophils # (Auto) 2.9x10^3uL (1.8-7.7) Lymphocytes # (Auto) 1.2x10^3/uL (1.0-4.8) Monocytes # (Auto) 0.3x10^3/uL (0.0-1.1) Eosinophils # (Auto) 0.1x10^3/uL (0.0-0.7) Basophils # (Auto) 0.0x10^3/uL (0.0-0.2) Sodium Level 141mmol/L (136-145) Potassium Level 4.5mmol/L (3.5-5.1) Chloride Level 104mmol/L (98-107) Carbon Dioxide Level 29mmol/L (21-32) Anion Gap 8 (6-14) Blood Urea Nitrogen 13mg/dL (8-26) Creatinine 0.7mg/dL (0.7-1.3) Estimated GFR (Cockcroft-Gault) 120.9 BUN/Creatinine Ratio 19 (6-20) Glucose Level 269mg/dL (70-99) Calcium Level 8.5mg/dL (8.5-10.1) Iron Level 40ug/dL (65-175) Total Iron Binding Capacity 329ug/dL (250-450) Iron Saturation 12% (15-34) Total Bilirubin 0.3mg/dL (0.2-1.0) Aspartate Amino Transf (AST/SGOT) 29U/L (15-37) Alanine Aminotransferase (ALT/SGPT) 45U/L (16-63) Alkaline Phosphatase 95U/L (46-116) Total Protein 6.6g/dL (6.4-8.2) Albumin 3.1g/dL (3.4-5.0) Albumin/Globulin Ratio 0.9 (1.0-1.7) Urine Collection Type Unknown Urine Color Yellow Urine Clarity Cloudy Urine pH 7.0 Urine Specific [place] 1.020 Urine Protein Negativemg/dL (NEG-TRACE) Urine Glucose (UA) 100mg/dL (NEG) Urine Ketones (Stick) Negativemg/dL (NEG) Urine Blood Negative (NEG) Urine Nitrite Negative (NEG) Urine Bilirubin Negative (NEG) Urine Urobilinogen Dipstick 2.0mg/dL (0.2 mg/dL) Urine Leukocyte Esterase Negative (NEG) Urine RBC 0/HPF (0-2) Urine WBC 0/HPF (0-4) Urine Squamous Epithelial Cells None/LPF Urine Amorphous Sediment Present/HPF Urine Bacteria 0/HPF (0-FEW) Test 09/17/16 07:02 Glucose (Fingerstick) 268mg/dL (70-99) Brief Hospital Course Mr. Shultz is a 46 old admit with AMS secondary to reported seroquel overdose. Presernted to ER prior day with mult complaints, then discharged after full work up including CT head, CXR, labs. OD on seroquel in ER lobby, then lethargic and confused, and admitted he could not deny to me that he was trying to hurt himself Pt is medically cleared to transfer to inpatient Psych facility. will need outpatient f/u of DM1, would benefit from lisinopril for renal protection Iron PO supplement started, he should get screening colonoscopy when he is mentally stable to do so Discharge Information Condition at Discharge: Improved Follow Up: Weeks Disposition/Orders: D/C to Another Facility Patient Instructions Patient Instructions time > 35 min JAMIL CAMARGO MD Sep 17, 2016 09:56
[2016-09-17] MEDS: INSULIN DETEMIR 300 UNITS/3 ML INSULN.PEN. SQ SCH (10:20)
[2016-09-17 10:42] VITALS: BP 110/65
[2016-09-17 14:32] VITALS: BP 112/63
== END 2016-09-17 15:31 | DRG 917 ==
LOC: ER 05:56 → 5 NORTH 06:34
PROVIDERS: ADMIT Internal Medicine; ATTEND Internal Medicine
DX: T43.592A Poisoning by other antipsychotics and neuroleptics, intentional self-harm, initial encounter (principal); G92 Toxic encephalopathy; F31.81 Bipolar II disorder; E44.1 Mild protein-calorie malnutrition; Z68.1 Body mass index [BMI] 19.9 or less, adult; D50.9 Iron deficiency anemia, unspecified; F25.9 Schizoaffective disorder, unspecified; E10.9 Type 1 diabetes mellitus without complications; F41.0 Panic disorder [episodic paroxysmal anxiety]; F41.9 Anxiety disorder, unspecified; Z88.0 Allergy status to penicillin; Z90.49 Acquired absence of other specified parts of digestive tract; Z72.0 Tobacco use; Y92.89 Other specified places as the place of occurrence of the external cause
CPT/HCPCS: 36415; 70450; 71010; 80053; 81001; 82947; 83540; 83550; 84484; 85027; 90686; 90732; 93005; G0480; G0481; G6038; J0780; J1200; J1815; 80196; 99285-25

== ENCOUNTER 2019-05-30 19:36 | Emergency (ER) | payer MEDICARE, MEDICAID ==
[~2019-05-30] VITALS: Ht 177.8 cm; Wt 61.2 kg
[~2019-05-30 19:36] MED LIST: ACET-704 PO; CITA20TA9 PO; INSU100V8 SQ; MIRT30TA PO; Nicotine 21MG TD; QUET100T4 PO; VALIUM10 MG PO
--- NOTE | 2019-05-30 20:04 | PHYS DOC ---
Past Medical History Past Medical History: Anxiety, Depression, Diabetes-Type II, Schizophrenia, Other Additional Past Medical Histor: panic attacks blood clots in liver ; meth abuse; Past Surgical History: No Surgical History, Cholecystectomy, Tonsillectomy Alcohol Use: Occasionally Drug Use: Methamphetamine Adult General Chief Complaint Chief Complaint: HIP PAIN [facility] HPI 49-year-old male presents to the emergency department with complaints of right hip pain. Patient was diagnosed with a fracture approximately 3 weeks ago, nonsurgical. Patient states over the last couple days he had worsening pain is hip as well as right knee. He states he is not using any assistance with regards to ambulation. Patient denies any chest pain, shortness breath, nausea, vomiting, fever, headache or visual changes. Ambulation, weightbearing makes his pain worse. All other ROS negative unless documented in HPI Review of Systems Review of Systems See Above Allergies Allergies Allergies Coded Allergies Type Severity Reaction Last Updated Verified Penicillins Allergy Intermediate 09/15/16 Yes Physical Exam Physical Exam See Above Constitutional: Well developed, well nourished, no acute distress, non-toxic appearance. [] HENT: Normocephalic, atraumatic, bilateral external ears normal, oropharynx moist, no oral exudates, nose normal. [] Eyes: PERRLA, EOMI, conjunctiva normal, no discharge. [] Cardiovascular:Heart rate regular rhythm, no murmur [] Lungs & Thorax: Bilateral breath sounds clear to auscultation [] Abdomen: Bowel sounds normal, soft, no tenderness, no masses, no pulsatile masses. [] Skin: Warm, dry, no erythema, no rash. [] Back: No tenderness, no CVA tenderness. [] Extremities: No tenderness, no edema. TTP right hip, right knee, no obvious deformity [] Neurologic: Alert and oriented X 3, no focal deficits noted. [] Psychologic: Affect normal, judgement normal, mood normal. [] Current Patient Data Vital Signs Vital Signs Date Time Temp Pulse Resp B/P (MAP) Pulse Ox O2 Delivery O2 Flow Rate FiO2 05/30/19 19:38 98.1 78 16 138/63 (88) 100 Room Air 98.1 EKG EKG [] Radiology/Procedures Radiology/Procedures [] Course & Med Decision Making Course & Med Decision Making Pertinent Labs and Imaging studies reviewed. (See chart for details) []49-year-old male presents to the emergency department with complaints of right hip pain. Patient was diagnosed with a fracture approximately 3 weeks ago, nonsurgical. Patient states over the last couple days he had worsening pain is hip as well as right knee. He states he is not using any assistance with regards to ambulation. Patient denies any chest pain, shortness breath, nausea, vomiting, fever, headache or visual changes. Ambulation, weightbearing makes his pain worse. Xray without evidence of acute fracture - compared to previous 05/09, there was no fracture at that time Knee unremarkable for acute fracture Plan crutches if patient will take them Dragon Disclaimer Dragon Disclaimer This electronic medical record was generated, in whole or in part, using a voice recognition dictation system. Departure Departure Impression: Primary Impression: Right hip pain Additional Impression: Knee pain Disposition: 01 HOME, SELF-CARE Condition: STABLE Referrals: UNKNOWN PCP NAME (PCP) Patient Instructions: Hip Pain Additional Instructions: Recommend follow up with PCP 3 - 5 days Return to the ER with worsening symptoms, intractable pain, fever, altered mental status Tylenol/Motrin as needed for pain Offered crutches if you so choose Problem Qualifiers Additional Impression: Knee pain Chronicity: unspecified Laterality: right Qualified Codes: M25.561 - Pain in right knee SHRUTHI BONNER MD May 30, 2019 20:04
--- NOTE | 2019-05-30 21:09 | RAD ---
KNEE RIGHT 3V History: Pain Comparison: None. Findings: 3 views of the right knee are submitted. No acute fracture or dislocation is identified. There is no joint effusion. There is superior patellar enthesophyte. Impression: 1. No acute osseous abnormality is identified. Electronically signed by: Pascual Horn MD (05/30/2019 9:06 PM) [facility]
[2019-05-30 21:27] VITALS: BP 124/73
--- NOTE | 2019-05-30 21:35 | RAD ---
Right hip AP lateral x-rays 2 views HISTORY: History of fracture, worsening right hip pain. FINDINGS: Comparison made to right hip x-rays and CT right hip May 09, 2019. The right femoral greater trochanteric fractures on prior CT imaging are radiographically occult, no distraction of the fracture fragments evident since prior hip imaging. No fracture of the femoral head or neck or acetabulum evident. No dislocation. IMPRESSION: The femoral greater trochanteric fractures are not apparent on x-ray imaging. No significant change evident by x-ray. Electronically signed by: Jonah Veliz MD (05/30/2019 9:32 PM) [facility]
== END 2019-05-30 21:43 | disposition home or self-care (01) ==
LOC: ER 19:36
DX: M25.561 Pain in right knee (principal); M25.551 Pain in right hip; F20.9 Schizophrenia, unspecified; E11.9 Type 2 diabetes mellitus without complications; Z90.49 Acquired absence of other specified parts of digestive tract; Z88.0 Allergy status to penicillin
CPT/HCPCS: 73502; 73562; 99284

== ENCOUNTER 2020-02-21 18:26 | Inpatient (IN) | payer MEDICARE, MEDICAID ==
[~2020-02-21] VITALS: Ht 175.3 cm; Wt 51.7 kg
[2020-02-21] MEDS ORDERED: IV RINGERS,LACTATED 1000ML 1,000 ML IV ONE ×2 (19:00→22:15)
[2020-02-21] MEDS ORDERED: VANCOMYCIN 2.5 GM in IV NORMAL SALINE 500ML BAG 500 ML IV ONE (19:00)
[2020-02-21] MEDS ORDERED: VANCOMYCIN 1.25 GM in IV NORMAL SALINE 250ML 250 ML IV ONE (19:30)
--- NOTE | 2020-02-21 19:33 | PHYS DOC ---
Past Medical History Past Medical History: Anxiety, Bipolar, Depression, Diabetes-Type I, Schi zophrenia, Other Additional Past Medical Histor: panic attacks blood clots in liver ; meth abuse; Past Surgical History: Cholecystectomy, Tonsillectomy Smoking Status: Current Every Day Smoker Alcohol Use: Occasionally Drug Use: Methamphetamine General Adult EDM: Chief Complaint: HYPERGLYCEMIA HPI: HPI: The history was obtained from the patient. Patient is a 50-year-old male with PMH IV drug abuse, insulin-dependent diabetes, hypertension, hyperlipidemia, bipolar disorder who presents with a chief complaint of body aches. Patient states that he has had diffuse body aches over the past several days. He notes a wound to his right lower extremity that has been draining purulent material. He states he has a history of multiple lower extremity wounds bilaterally. Does note some increased shortness of breath exertion from baseline. Denies any chest pain. States he last used IV drugs 1 month ago. States he last smoked methamphetamine yesterday. Denies any fevers. States he is currently homeless. Denies recent antibiotics. Denies any history of endocarditis or spinal in fections. Denies abdominal pain or vomiting. States the pain is sharp and aching sensation all over. States he has not tried anything to help. Nothing seems to alleviate or exacerbate his symptoms. No other complaints. Review of Systems: Review of Systems: Constitutional: Denies fever or chills. [] Eyes: Denies change in visual acuity. [] HENT: Denies nasal congestion or sore throat. [] Respiratory: Positive for shortness of breath Cardiovascular: Denies chest pain or edema. [] GI: Denies abdominal pain, nausea, vomiting, bloody stools or diarrhea. [] : Denies dysuria. [] Musculoskeletal: Positive for myalgias Integument: Positive for cellulitis Neurologic: Denies headache, focal weakness or sensory changes. [] Endocrine: Denies polyuria or polydipsia. [] Lymphatic: Denies swollen glands. [] Psychiatric: Denies depression or anxiety. [] Heart Score: Risk Factors: Risk Factors: DM, Current or recent (<one month) smoker, HTN, HLP, family history of CAD, obesity. Risk Scores: Score 0 - 3: 2.5% MACE over next 6 weeks - Discharge Home Score 4 - 6: 20.3% MACE over next 6 weeks - Admit for Clinical Observation Score 7 - 10: 72.7% MACE over next 6 weeks - Early Invasive Strategies Current Medications: Current Medications Medications (Trade) Dose Ordered Sig/Graciela Start Time Stop Time Status Last Admin Dose Admin Ringer's Solution 1,000 ml @ 1,000 mls/hr 1X ONCE 02/21/20 19:00 02/21/20 19:59 Vancomycin HCl 1.25 gm/Sodium Chloride 250 ml @ 166.667 mls/hr 1X ONCE 02/21/20 19:30 02/21/20 20:59 Vancomycin HCl 2.5 gm/Sodium Chloride 500 ml @ 250 mls/hr 1X ONCE 02/21/20 19:00 02/21/20 20:59 UNV Allergies: Allergies: Allergies Coded Allergies Type Severity Reaction Last Updated Verified Penicillins Allergy Intermediate 09/15/16 Yes Physical Exam: PE: Constitutional: Well developed, well nourished, no acute distress, non-toxic appearance. [] HENT: Normocephalic, atraumatic, bilateral external ears normal, oropharynx moist, no oral exudates, nose normal. [] Eyes: PERRLA, EOMI, conjunctiva normal, no discharge. [] Neck: Normal range of motion, no tenderness, supple, no stridor. [] Cardiovascular:Heart rate regular rhythm, no murmur [] Lungs & Thorax: Bilateral breath sounds clear to auscultation [] Abdomen: Bowel sounds normal, soft, no tenderness, no masses, no pulsatile masses. [] Skin: Warm, dry, no erythema, no rash. [] Back: + 5/5 motor strength in dorsiflexion and plantarflexion of the great toes bilaterally. Sensation intact between the webbing of the first and second toes bilaterally. Extremities: Multiple old wounds noted to the lower extremities bilaterally. 3 x 3 cm area of necrosis and purulence to the medial aspect of the distal right tibia. Mild induration surrounding. No palpable areas of fluctuance or crepitus appreciated. Neurologic: Alert and oriented X 3, normal motor function, normal sensory function, no focal deficits noted. [] Psychologic: Affect normal, judgement normal, mood normal. [] Current Patient Data: Labs: Laboratory Tests Test 02/21/20 20:00 White Blood Count 8.8 x10^3/uL Red Blood Count 4.29 x10^6/uL Hemoglobin 11.6 g/dL Hematocrit 35.0 % Mean Corpuscular Volume 82 fL Mean Corpuscular Hemoglobin 27 pg Mean Corpuscular Hemoglobin Concent 33 g/dL Red Cell Distribution Width 14.1 % Platelet Count 349 x10^3/uL Neutrophils (%) (Auto) 62 % Lymphocytes (%) (Auto) 29 % Monocytes (%) (Auto) 7 % Eosinophils (%) (Auto) 1 % Basophils (%) (Auto) 1 % Neutrophils # (Auto) 5.4 x10^3/uL Lymphocytes # (Auto) 2.5 x10^3/uL Monocytes # (Auto) 0.6 x10^3/uL Eosinophils # (Auto) 0.1 x10^3/uL Basophils # (Auto) 0.1 x10^3/uL Sodium Level 129 mmol/L Potassium Level 4.2 mmol/L Chloride Level 93 mmol/L Carbon Dioxide Level 31 mmol/L Anion Gap 5 Blood Urea Nitrogen 13 mg/dL Creatinine 1.0 mg/dL Estimated GFR (Cockcroft-Gault) 78.8 BUN/Creatinine Ratio 13 Glucose Level 609 mg/dL Lactic Acid Level 2.6 mmol/L Calcium Level 8.3 mg/dL Magnesium Level 2.0 mg/dL Total Bilirubin 0.2 mg/dL Aspartate Amino Transf (AST/SGOT) 25 U/L Alanine Aminotransferase (ALT/SGPT) 34 U/L Alkaline Phosphatase 146 U/L Troponin I Quantitative < 0.017 ng/mL [id number] Natriuretic Peptide 284 pg/mL Total Protein 7.6 g/dL Albumin 3.1 g/dL Albumin/Globulin Ratio 0.7 Current Medications Medications (Trade) Dose Ordered Sig/Graciela Route PRN Reason Start Time Stop Time Status Last Admin Dose Admin Vancomycin HCl 2.5 gm/Sodium Chloride 500 ml @ 250 mls/hr 1X ONCE IV 02/21/20 19:00 02/21/20 20:59 UNV Ringer's Solution 1,000 ml @ 1,000 mls/hr 1X ONCE IV 02/21/20 19:00 02/21/20 19:59 DC 02/21/20 19:56 Vancomycin HCl 1.25 gm/Sodium Chloride 250 ml @ 166.667 mls/hr 1X ONCE IV 02/21/20 19:30 8/24/20 20:59 DC 02/21/20 19:57 Iohexol (Omnipaque 300 Mg/ml) 75 ml 1X ONCE IV 02/21/20 20:45 02/21/20 20:46 DC 02/21/20 21:11 Info (CONTRAST GIVEN -- Rx MONITORING) 1 each PRN DAILY PRN MC SEE COMMENTS 02/21/20 20:45 02/23/20 20:44 Insulin Glargine (Lantus Syringe) 10 unit QHS SQ 02/21/20 21:00 02/21/20 21:08 Insulin Human Regular (HumuLIN R VIAL) 10 unit 1X ONCE IV 02/21/20 21:15 02/21/20 21:16 DC Vital Signs: Vital Signs Date Time Temp Pulse Resp B/P (MAP) Pulse Ox O2 Delivery O2 Flow Rate FiO2 02/21/20 18:26 98.5 85 16 124/64 (84) 98 Room Air 98.5 EKG: EKG: EKG consistent with normal sinus rhythm. Ventricular rate of 85 bpm. Left axis noted. Left bundle branch block present. No acute ST segment elevation appreciated. New from previous EKG on September 15, 2016. Radiology/Procedures: Radiology/Procedures: [] Course & Med Decision Making: Course & Med Decision Making Pertinent Labs and Imaging studies reviewed. (See chart for details) Patient is a 50-year-old male who presents with chief complaint of diffuse body pain. Initial vital signs unremarkable. Physical exam noted above. CT imaging of the right lower extremity reveals no signs of deep space infection or necrotizing fasciitis. Ultrasound negative for DVT. Labs notable for hyperglycemia without signs of DKA. Patient was given IV vancomycin given his history of IV drug use. Blood cultures obtained and pending. Lactate 2.6. Shows no signs of hemodynamic instability. He was given lactated Ringer fluid bolus and infusion. He was also administered insulin for his hyperglycemia. I do feel he require hospitalization. Patient hospitalized to Dr. Maravilla. Theron Disclaimer: Theron Disclaimer: This electronic medical record was generated, in whole or in part, using a voice recognition dictation system. Departure Departure Impression: Primary Impression: Cellulitis of right lower extremity Additional Impressions: Hyperglycemia IVDU (intravenous drug user) Disposition: ADMITTED INPATIENT Condition: GOOD Referrals: NO PCP (PCP) Justicifation of Admission Dx: Justifications for Admission: Justification of Admission Dx: Yes (IVDU) Cellulitis: Cellulitis Diabetic Urgency: Diabetic Urgency NASIMA CORDERO DO Feb 21, 2020 19:33
--- NOTE | 2020-02-21 19:49 | RAD ---
CHEST PA LATERAL History: Shortness of breath Comparison: October 12, 2017 Findings: 2 views of the chest are submitted. There is no infiltrate, pneumothorax, or effusion. Pericardial cardiac silhouette is within normal limits in size. There may be emphysema. Some opacity projecting over the left apical region on the AP view is believed to be artifactual given the defined medial margin. Impression: 1. There is no convincing infiltrate. There may be emphysema. Electronically signed by: Pascual Horn MD (02/21/2020 7:46 PM) [facility]
[2020-02-21 20:09] LABS: BASO # 0.1 x10^3/uL (0.0-0.2); BASO % 1 % (0-3); EOS # 0.1 x10^3/uL (0.0-0.7); EOS % 1 % (0-3); HEMOGLOBIN 11.6 g/dL (13.0-17.5); LYMPH # 2.5 x10^3/uL (1.0-4.8); LYMPH % 29 % (24-48); MEAN CORPUSCULAR HEMOGLOBIN 27 pg (25-35); MEAN CORPUSCULAR HGB CONC 33 g/dL (31-37); MEAN CORPUSCULAR VOLUME 82 fL (79-100); MONO # 0.6 x10^3/uL (0.0-1.1); MONO % 7 % (0-9); NEUT # 5.4 x10^3/uL (1.8-7.7); NEUT % 62 % (31-73); PLATELET COUNT 349 x10^3/uL (140-400); RED BLOOD COUNT 4.29 x10^6/uL (4.30-5.70); RED CELL DISTRIBUTION WIDTH 14.1 % (11.5-14.5); WHITE BLOOD COUNT 8.8 x10^3/uL (4.0-11.0)
[2020-02-21 20:32] LABS: ALBUMIN 3.1 g/dL (3.4-5.0); ALBUMIN/GLOBULIN RATIO 0.7 (1.0-1.7); CALCIUM 8.3 mg/dL (8.5-10.1); GFR 78.8; POTASSIUM 4.2 mmol/L (3.5-5.1); TOTAL BILIRUBIN 0.2 mg/dL (0.2-1.0); TOTAL PROTEIN 7.6 g/dL (6.4-8.2)
[2020-02-21] MEDS ORDERED: CONTRAST GIVEN. MC PRN (20:45)
[2020-02-21] MEDS ORDERED: IOHEXOL 300 MG/ML 100ML VIAL. IV ONE (20:45)
[2020-02-21] MEDS: INSULIN GLARGINE SYRINGE. SQ SCH (21:08)
[2020-02-21] MEDS ORDERED: INSULIN REGULAR 100 UNIT/ML 3ML VIAL. IV ONE (21:15)
--- NOTE | 2020-02-21 21:45 | RAD ---
Exam: CT right lower extremity with contrast INDICATION: Right lower extremity wounds with history of IV drug use TECHNIQUE: Sequential axial images through the right lower extremity obtained following the administration of 75 mL of Omni 300 IV contrast. Sagittal and coronal reformatted images were reconstructed from the axial data and reviewed. Comparisons: None FINDINGS: Bone mineralization is normal. No acute or healed fractures are identified. Joint spaces are well-maintained. No evidence for vascular injury. There is admixture of contrast noted at the popliteal vein. No focal fluid collection or or radiopaque foreign body identified. Visualized musculature is unremarkable. IMPRESSION: No focal fluid collection or radiopaque foreign body identified. Exposure: One or more of the following in the visualized dose reduction techniques were utilized for this examination: 1. Automated exposure control 2. Adjustment of the MA and/or KV according to patient size 3. Use of iterative of reconstructive technique Electronically signed by: Loreto Welsh MD (02/21/2020 9:42 PM) [id number]
[2020-02-21] MEDS ORDERED: ONDANSETRON PF 4 MG/2 ML VIAL. IV PRN (22:15)
[2020-02-21 22:55] VITALS: BP 126/66
[2020-02-22 00:54] LABS: BASO # 0.1 x10^3/uL (0.0-0.2); BASO % 1 % (0-3); EOS # 0.1 x10^3/uL (0.0-0.7); EOS % 2 % (0-3); HEMATOCRIT 39.1 % (39.0-53.0); HEMOGLOBIN 12.7 g/dL (13.0-17.5); LYMPH # 2.6 x10^3/uL (1.0-4.8); LYMPH % 34 % (24-48); MEAN CORPUSCULAR HEMOGLOBIN 26 pg (25-35); MEAN CORPUSCULAR HGB CONC 32 g/dL (31-37); MEAN CORPUSCULAR VOLUME 81 fL (79-100); MONO # 0.5 x10^3/uL (0.0-1.1); MONO % 7 % (0-9); NEUT # 4.3 x10^3/uL (1.8-7.7); NEUT % 57 % (31-73); PLATELET COUNT 345 x10^3/uL (140-400); RED BLOOD COUNT 4.82 x10^6/uL (4.30-5.70); RED CELL DISTRIBUTION WIDTH 14.6 % (11.5-14.5); WHITE BLOOD COUNT 7.6 x10^3/uL (4.0-11.0)
--- NOTE | 2020-02-22 01:00 | NUR ---
ADMIT NOTE The patient, GEOFF COTTON, 50 y/o, M admitted by MAGDA TEIXEIRA MD, was given written information regarding hospital policies, unit procedures and contact persons. Patient afebrile and VSS with no c/o pain at time of admission. Patient orientated to unit, plan of care discussed, and admit packet reviewed. Security called to check in selected personal items and all other possessions checked and left in room with patient. Patient declined SCDs. Patient in bed, bed in lowest/locked position, and call light within reach; no other needs voiced at this time.
[2020-02-22 01:04] LABS: CALCIUM 8.1 mg/dL (8.5-10.1); CREATININE 0.8 mg/dL (0.7-1.3); GFR 101.9; POTASSIUM 3.5 mmol/L (3.5-5.1)
[2020-02-22 03:00] VITALS: BP 107/62
--- NOTE | 2020-02-22 04:03 | EKG ---
[facility] [address] [place] [address] Test Date: 2020-02-21 Test Time: 18:34:37 Pat Name: GEOFF COTTON Department: Room: 434 1 Gender: M Non Destructive Testing Supervisor: : 1970 Requested By: NASIMA CORDERO Order Number: [id number] Reading MD: Measurements Intervals Lancing Rate: 85 P: 66 GA: 194 QRS: -52 QRSD: 152 T: 82 QT: 412 QTc: 490 Interpretive Statements SINUS RHYTHM LEFT ATRIAL ABNORMALITY ABNORMAL LEFT AXIS DEVIATION LEFT BUNDLE BRANCH BLOCK ABNORMAL ECG RI6.02 No previous ECG available for comparison
[2020-02-22 07:00] VITALS: BP 142/84
[2020-02-22] MEDS ORDERED: DEXTROSE 50% 25 GM / 50ML DISP.SYRIN. IV PRN (08:15)
[2020-02-22] MEDS: INSULIN LISPRO 300 UNITS/3 ML VIAL. SQ SCH ×3 (08:42→16:50)
--- NOTE | 2020-02-22 09:36 | NUR ---
ZEESHAN following. Discussed with RN, pt has hx of meth use/abuse - MICKEY consulted. Pt on room air, regular diet. ZEESHAN will continue to follow. Addendum: 02/22/20 at 1217 by MENDEL BYERS Sunil HAYNES) met with pt, pt would like to seek rehab treatment for drug abuse. Pt is open with [facility] and [facility] for drug abuse. Pt reported he takes his medications but it is sometimes sporadic. Sunil faxed referral to [facility], awaiting acceptance decision. Addendum: 02/22/20 at 1621 by MENDEL BYERS [facility] declined to take pt. Sunil HAYNES) notified, okay to dc home and follow up with [facility] and [facility] for drug. Pt couch surfs at friend's places. NIEVES notified.
[2020-02-22] MEDS: DOXYCYCLINE HYCLATE 100 MG TABLET PO SCH ×2 (10:00→20:06)
--- NOTE | 2020-02-22 10:19 | CONS ---
DATE OF CONSULTATION: 02/22/2020 REQUESTING PHYSICIAN: Dr. Magalis Ca. REASON FOR CONSULTATION: Cellulitis. HISTORY OF PRESENT ILLNESS: This is a 50-year-old gentleman with history of IV drug use, also multiple medical problems. He came in with not feeling well, pain all over the body and there is a wound on the right leg with also a lot of pain, he says. The patient denies any fever. Denies any nausea, vomiting, diarrhea. Denies any chest pain, shortness of breath, abdominal pain, urinary symptoms or bowel symptoms. PAST MEDICAL HISTORY: Positive for anxiety disorder, bipolar disorder, depression, diabetes, schizophrenia, panic attacks. PAST SURGICAL HISTORY: Has had cholecystectomy and tonsillectomy. SOCIAL HISTORY: Positive for methamphetamine use and marijuana use. The patient does smoke and does not do alcohol. ALLERGIES: LISTED ALLERGIC TO PENICILLIN. CURRENT MEDICATIONS: Reviewed. REVIEW OF SYSTEMS: As per the HPI, all other systems reviewed and are negative. PHYSICAL EXAMINATION: GENERAL: Alert and oriented gentleman, not in distress. VITAL SIGNS: Stable. Afebrile. HEENT: NAD. NECK: Supple, no JVP, no lymphadenopathy. LUNGS: Clear. HEART: S1, S2 regular. ABDOMEN: Benign. EXTREMITIES: No edema or cyanosis. The patient does have a mild small superficial wound on the right leg. The patient also has IV drug use, scars in multiple areas in the leg and the patient does not have any signs of cellulitis or any other infection. NEUROLOGIC: The patient is alert, awake and appropriate. No focal neurologic deficit. LABORATORY DATA: White count is normal. BUN and creatinine is normal. His lactic acid is 2.6, which is down to normal very quickly. Blood glucose was 609. Extremity CT done, which was unremarkable and chest x-ray was unremarkable. IMPRESSION: 1. Intravenous drug use. 2. Chronic pain syndrome. 3. Small superficial right leg wound. RECOMMENDATIONS: The patient can be discharged on p.o. doxycycline from the infectious disease standpoint of view. Thank you very much, Dr. Ca, for giving me the opportunity to participate in this patient's care. FREDDIE SOOD MD DR: YOLANDA/nathanael JOB#: [id number] / [id number]
[2020-02-22 11:00] VITALS: BP 143/86
--- NOTE | 2020-02-22 11:25 | PDOC ---
[facility] PROGRESS NOTE Date of Service DOS: DATE: 02/22/20 TIME: 11:17 Chief Complaint Chief Complaint Patient presents with right leg pain on the anterior portion of tibia. History of Present Illness History of Present Illness Patient is alert and oriented upon exam Patient endorses methamphetamine and marijuana use Patient says that he stopped injected and switched to smoking his meth after he realized it was causing the injection sites to burn Patient says he has neuropathy Patient requested public health social worker Consulted with ID Vitals/I&O Vitals/I&O: Vital Signs Date Time Temp Pulse Resp B/P (MAP) Pulse Ox O2 Delivery O2 Flow Rate FiO2 02/22/20 08:00 Room Air 02/22/20 07:00 98.4 68 16 142/84 (103) 94 98.4 I & O 02/21/20 02/21/20 02/22/20 15:00 23:00 07:00 Intake Total 1500 ml 350 ml Balance 1500 ml 350 ml Physical Exam General: Alert, Oriented X3 Heart: Regular rate Lungs: Clear, Wheezing Abdomen: No hepatosplenomegaly Extremities: No clubbing, No edema Skin: Other (Patient has lesions on B/L LEs at meth injection sites. There is a wound present on right LE) Labs Labs: Laboratory Tests Test 02/21/20 20:00 02/21/20 22:07 02/22/20 00:03 02/22/20 00:30 White Blood Count 8.8 x10^3/uL (4.0-11.0) 7.6 x10^3/uL (4.0-11.0) Red Blood Count 4.29 x10^6/uL (4.30-5.70) 4.82 x10^6/uL (4.30-5.70) Hemoglobin 11.6 g/dL (13.0-17.5) 12.7 g/dL (13.0-17.5) Hematocrit 35.0 % (39.0-53.0) 39.1 % (39.0-53.0) Mean Corpuscular Volume 82 fL (79-100) 81 fL (79-100) Mean Corpuscular Hemoglobin 27 pg (25-35) 26 pg (25-35) Mean Corpuscular Hemoglobin Concent 33 g/dL (31-37) 32 g/dL (31-37) Red Cell Distribution Width 14.1 % (11.5-14.5) 14.6 % (11.5-14.5) Platelet Count 349 x10^3/uL (140-400) 345 x10^3/uL (140-400) Neutrophils (%) (Auto) 62 % (31-73) 57 % (31-73) Lymphocytes (%) (Auto) 29 % (24-48) 34 % (24-48) Monocytes (%) (Auto) 7 % (0-9) 7 % (0-9) Eosinophils (%) (Auto) 1 % (0-3) 2 % (0-3) Basophils (%) (Auto) 1 % (0-3) 1 % (0-3) Neutrophils # (Auto) 5.4 x10^3/uL (1.8-7.7) 4.3 x10^3/uL (1.8-7.7) Lymphocytes # (Auto) 2.5 x10^3/uL (1.0-4.8) 2.6 x10^3/uL (1.0-4.8) Monocytes # (Auto) 0.6 x10^3/uL (0.0-1.1) 0.5 x10^3/uL (0.0-1.1) Eosinophils # (Auto) 0.1 x10^3/uL (0.0-0.7) 0.1 x10^3/uL (0.0-0.7) Basophils # (Auto) 0.1 x10^3/uL (0.0-0.2) 0.1 x10^3/uL (0.0-0.2) Sodium Level 129 mmol/L (136-145) 136 mmol/L (136-145) Potassium Level 4.2 mmol/L (3.5-5.1) 3.5 mmol/L (3.5-5.1) Chloride Level 93 mmol/L (98-107) 98 mmol/L (98-107) Carbon Dioxide Level 31 mmol/L (21-32) 31 mmol/L (21-32) Anion Gap 5 (6-14) 7 (6-14) Blood Urea Nitrogen 13 mg/dL (8-26) 11 mg/dL (8-26) Creatinine 1.0 mg/dL (0.7-1.3) 0.8 mg/dL (0.7-1.3) Estimated GFR (Cockcroft-Gault) 78.8 101.9 BUN/Creatinine Ratio 13 (6-20) Glucose Level 609 mg/dL (70-99) 193 mg/dL (70-99) Lactic Acid Level 2.6 mmol/L (0.4-2.0) 2.0 mmol/L (0.4-2.0) Calcium Level 8.3 mg/dL (8.5-10.1) 8.1 mg/dL (8.5-10.1) Magnesium Level 2.0 mg/dL (1.8-2.4) Total Bilirubin 0.2 mg/dL (0.2-1.0) Aspartate Amino Transf (AST/SGOT) 25 U/L (15-37) Alanine Aminotransferase (ALT/SGPT) 34 U/L (16-63) Alkaline Phosphatase 146 U/L (46-116) Troponin I Quantitative < 0.017 ng/mL (0.000-0.055) PG-Qjj-I-Type Natriuretic Peptide 284 pg/mL (0-124) Total Protein 7.6 g/dL (6.4-8.2) Albumin 3.1 g/dL (3.4-5.0) Albumin/Globulin Ratio 0.7 (1.0-1.7) Glucose (Fingerstick) 408 mg/dL (70-99) 272 mg/dL (70-99) Test 02/22/20 07:43 Glucose (Fingerstick) 449 mg/dL (70-99) Review of Systems Review of Systems: Patient denies nausea. Patient denies weakness Assessment and Plan Assessmemt and Plan Assessment Medical Problems: (1) Cellulitis of right lower extremity Status: Acute (2) Hyperglycemia Status: Acute (3) IVDU (intravenous drug user) Status: Acute Plan As per ID, patient can be discharged on PO ABx Prescribed PO Doxycycline and Percocet Hope to discharge Request PAT screen Home meds Wound care Full code DVT prophylaxis Comment Review of Relevant I have reviewed the following items oli (where applicable) has been applied. Medications: Current Medications Medications (Trade) Dose Ordered Sig/Graciela Route PRN Reason Start Time Stop Time Status Last Admin Dose Admin Ringer's Solution 1,000 ml @ 1,000 mls/hr 1X ONCE IV 02/21/20 19:00 02/21/20 19:59 DC 02/21/20 19:56 Vancomycin HCl 1.25 gm/Sodium Chloride 250 ml @ 166.667 mls/hr 1X ONCE IV 02/21/20 19:30 02/21/20 20:59 DC 02/21/20 19:57 Iohexol (Omnipaque 300 Mg/ml) 75 ml 1X ONCE IV 02/21/20 20:45 02/21/20 20:46 DC 02/21/20 21:11 Insulin Glargine (Lantus Syringe) 10 unit QHS SQ 02/21/20 21:00 02/21/20 21:08 Insulin Human Regular (HumuLIN R VIAL) 10 unit 1X ONCE IV 02/21/20 21:15 02/21/20 21:16 DC 02/21/20 23:22 Ringer's Solution 1,000 ml @ 200 mls/hr 1X ONCE IV 02/21/20 22:15 02/22/20 03:14 DC 02/21/20 23:23 Insulin Human Lispro (HumaLOG) 0-9 UNITS TIDWMEALS SQ 02/22/20 08:20 02/22/20 08:42 Doxycycline Hyclate (Vibra-Tab) 100 mg BID PO 02/22/20 10:00 02/22/20 10:00 DYLAN ALMONTE III DO Feb 22, 2020 11:25
--- NOTE | 2020-02-22 12:53 | NUR ---
Wound Care Wound Type/Assessment: R young open ulceration, per pt has been present x3 weeks, and was caused by shooting meth under the skin. Wound bed is clean, red and granulated, with minimal slough, wound edges thickened and intact. No periwound redness or fluctuance noted. Treatment Recommendations/Plan: Cleanse with saline, apply Medihoney gel to wound bed cover with Xeroform gauze, then foam dressing, change every 3-4 days. Education provided: to pt re: high risk of infection and amputation by shooting drugs into skin, pt v/u. Pt also educated on dressing changes and keeping wounds clean and covered. Offloading surface/device: n/a Recommended Referrals/Tests: n/a Discharge Recommendations for dressings: see treatment plan above
--- NOTE | 2020-02-22 13:24 | DS ---
DATE OF DISCHARGE: 02/22/2020 ADDENDUM The patient is medically cleared for discharge. DYLAN ALMONTE DO DR: DEV/nathanael JOB#: [id number] / [id number]
[2020-02-22 13:27] LABS: ALBUMIN 3.1 g/dL (3.4-5.0); ALBUMIN/GLOBULIN RATIO 0.6 (1.0-1.7); CALCIUM 8.6 mg/dL (8.5-10.1); CREATININE 0.7 mg/dL (0.7-1.3); GFR 118.9; POTASSIUM 4.1 mmol/L (3.5-5.1); TOTAL BILIRUBIN 0.3 mg/dL (0.2-1.0)
--- NOTE | 2020-02-22 13:49 | DS ---
DATE OF DISCHARGE: 02/22/2020 ADMISSION DIAGNOSES: Hyperglycemia and methamphetamine abuse, cellulitis. DISCHARGE DIAGNOSES: Resolving methamphetamine abuse, resolving hyperglycemia, resolving cellulitis. HOSPITAL COURSE: The patient is a pleasant 50-year-old male who injects his methamphetamine and because of that, he developed these ulcers on his legs. He states that he has figured out of away to get around that problem now, he smokes instead. Basically admitted with hyperglycemia and some infection on his leg. We got his glucose under control. Today, I saw him and examined him. His legs are improving. We got him on antibiotics. I discussed the case with the Infectious Disease. We are going to put him on p.o. doxycycline and let him go home. I told him to stop doing the methamphetamine. DISPOSITION: Home. ACTIVITY: As tolerated. DIET: Low sodium. MEDICATIONS: Please see the MRAD. TOTAL TIME: 34 minutes. KIML Ryder ALMONTE DO DR: DEV/nathanael JOB#: [id number] / [id number]
[2020-02-22 15:00] VITALS: BP 132/68
[2020-02-22 19:00] VITALS: BP 115/72
[2020-02-22] MEDS: INSULIN GLARGINE SYRINGE. SQ SCH (20:11)
[2020-02-22 23:00] VITALS: BP 137/66
[2020-02-23 03:00] VITALS: BP 114/69
[2020-02-23 07:00] VITALS: BP 121/65
[2020-02-23] MEDS: DOXYCYCLINE HYCLATE 100 MG TABLET PO SCH ×2 (08:54→20:51)
[2020-02-23] MEDS: INSULIN LISPRO 300 UNITS/3 ML VIAL. SQ SCH ×3 (09:01→18:22)
--- NOTE | 2020-02-23 09:07 | PDOC ---
[facility] [facility] PROGRESS NOTE Date of Service DOS: DATE: 02/23/20 TIME: 08:59 Chief Complaint Chief Complaint Patient presents with right leg pain on the anterior portion of tibia. History of Present Illness History of Present Illness 02/23/2020 Patient seen and examined Discussed with RN Chart reviewed Patient resting with NAD Patient was denied admittance to inpatient psych because he did not meet the criteria Re-discharge to home today 02/22/2020 Patient is alert and oriented upon exam Patient endorses methamphetamine and marijuana use Patient says that he stopped injected and switched to smoking his meth after he realized it was causing the injection sites to burn Patient says he has neuropathy Patient requested high school social studies teacher Consulted with ID Vitals/I&O Vitals/I&O: Vital Signs Date Time Temp Pulse Resp B/P (MAP) Pulse Ox O2 Delivery O2 Flow Rate FiO2 02/23/20 07:00 99.3 74 18 121/65 (83) 96 Room Air 99.3 I & O 02/22/20 02/22/20 02/23/20 15:00 23:00 07:00 Intake Total 800 ml Balance 800 ml Physical Exam General: No acute distress Heart: Regular rate Lungs: Wheezing Abdomen: No hepatosplenomegaly Extremities: No clubbing, No edema Skin: Other (Patient has lesions on B/L LEs at meth injection sites. There is a wound present on right LE) Labs Labs: Laboratory Tests Test 02/22/20 11:52 02/22/20 12:47 02/22/20 16:41 02/22/20 20:05 Glucose (Fingerstick) 325 mg/dL (70-99) 220 mg/dL (70-99) 249 mg/dL (70-99) Sodium Level 136 mmol/L (136-145) Potassium Level 4.1 mmol/L (3.5-5.1) Chloride Level 99 mmol/L (98-107) Carbon Dioxide Level 32 mmol/L (21-32) Anion Gap 5 (6-14) Blood Urea Nitrogen 12 mg/dL (8-26) Creatinine 0.7 mg/dL (0.7-1.3) Estimated GFR (Cockcroft-Gault) 118.9 BUN/Creatinine Ratio 17 (6-20) Glucose Level 286 mg/dL (70-99) Calcium Level 8.6 mg/dL (8.5-10.1) Total Bilirubin 0.3 mg/dL (0.2-1.0) Aspartate Amino Transf (AST/SGOT) 28 U/L (15-37) Alanine Aminotransferase (ALT/SGPT) 42 U/L (16-63) Alkaline Phosphatase 146 U/L (46-116) Total Protein 8.0 g/dL (6.4-8.2) Albumin 3.1 g/dL (3.4-5.0) Albumin/Globulin Ratio 0.6 (1.0-1.7) Review of Systems Review of Systems: Denies pain Denies weakness Assessment and Plan Assessmemt and Plan Problems Medical Problems: (1) Cellulitis of right lower extremity Status: Acute (2) Hyperglycemia Status: Acute (3) IVDU (intravenous drug user) Status: Acute Assessment (1) Cellulitis of right lower extremity (2) Hyperglycemia (3) IVDU (intravenous drug user) Plan As per ID, patient can be discharged on PO ABx Prescribed PO Doxycycline and Percocet Hope to re-discharge to home today - was denied admittance to inpatient psych Continue ABx Home meds Wound care Full code DVT prophylaxis Comment Review of Relevant I have reviewed the following items oli (where applicable) has been applied. Medications: Current Medications Medications (Trade) Dose Ordered Sig/Graciela Route PRN Reason Start Time Stop Time Status Last Admin Dose Admin Doxycycline Hyclate (Vibra-Tab) 100 mg BID PO 02/22/20 10:00 02/22/20 20:06 DYLAN ALMONTE III DO Feb 23, 2020 09:07
--- NOTE | 2020-02-23 10:00 | NUR ---
SW following. Discussed with RN, discharge order for home with self care. Pt can go to friends house to stay if he so choose. No SW needs.
[2020-02-23 11:00] VITALS: BP 106/64
--- NOTE | 2020-02-23 12:06 | PDOC1 ---
History and Physical Date of Service: DOS: DATE: 02/21/20 TIME: 11:57 Chief Complaint: Chief Complain: Body aches and right lower extremity wound History of Present Illness: HPI: Patient is a 50-year-old male with past medical history of IVDA, diabetes, hypertension, dyslipidemia, bipolar disorder who presents with body aches. He has had diffuse body aches over the past several days and had noted there is a right lower extremity wound that has been draining purulent fluid. He has had these multiple lower extremity wounds in both legs in the past before. Denies shortness of breath, chest pain, abdominal pain, and bloody stools. His last IV drug use was 1 month ago and he has smoked methamphetamine yesterday. Past Medical/Surgical History: PMH/PSH: Past Medical History: Anxiety, Bipolar, Depression, Diabetes-Type I, Schizophrenia, panic attacks, meth abuse; Past Surgical History: Cholecystectomy, Tonsillectomy Allergies: Allergies: Coded Allergies: Penicillins (Verified Allergy, Intermediate, 09/15/16) Family History: Family History: Reviewed and none reported Social History: Social History: Smoking Status: Current Every Day Smoker Alcohol Use: Occasionally Drug Use: Methamphetamine Current Medications: Current Medications Current Medications Vancomycin HCl 2.5 gm/Sodium Chloride 500 ml @ 250 mls/hr 1X ONCE IV ; Start 02/21/20 at 19:00; Stop 02/21/20 at 20:59; Status UNV Ringer's Solution 1,000 ml @ 1,000 mls/hr 1X ONCE IV Last administered on 02/21/20at 19:56; Start 02/21/20 at 19:00; Stop 02/21/20 at 19:59; Status DC Vancomycin HCl 1.25 gm/Sodium Chloride 250 ml @ 166.667 mls/hr 1X ONCE IV Last administered on 02/21/20at 19:57; Start 02/21/20 at 19:30; Stop 02/21/20 at 20:59; Status DC Iohexol (Omnipaque 300 Mg/ml) 75 ml 1X ONCE IV Last administered on 02/21/20at 21:11; Start 02/21/20 at 20:45; Stop 02/21/20 at 20:46; Status DC Info (CONTRAST GIVEN -- Rx MONITORING) 1 each PRN DAILY PRN MC SEE COMMENTS; Start 02/21/20 at 20:45; Stop 02/23/20 at 20:44 Insulin Glargine (Lantus Syringe) 10 unit QHS SQ Last administered on 02/22/20at 20:11; Start 02/21/20 at 21:00 Insulin Human Regular (HumuLIN R VIAL) 10 unit 1X ONCE IV Last administered on 02/21/20at 23:22; Start 02/21/20 at 21:15; Stop 02/21/20 at 21:16; Status DC Ondansetron HCl (Zofran) 4 mg PRN Q8HRS PRN IV NAUSEA/VOMITING; Start 02/21/20 at 22:15; Stop 02/22/20 at 22:14; Status DC Ringer's Solution 1,000 ml @ 200 mls/hr 1X ONCE IV Last administered on 02/21/20at 23:23; Start 02/21/20 at 22:15; Stop 02/22/20 at 03:14; Status DC Insulin Human Lispro (HumaLOG) 0-9 UNITS TIDWMEALS SQ Last administered on 02/23/20at 09:01; Start 02/22/20 at 08:20 Dextrose (Dextrose 50%-Water Syringe) 12.5 gm PRN Q15MIN PRN IV SEE COMMENTS; Start 02/22/20 at 08:15 Doxycycline Hyclate (Vibra-Tab) 100 mg BID PO Last administered on 02/23/20at 08:54; Start 02/22/20 at 10:00 Active Scripts Active Tylenol With Codeine #3 Tablet (Acetaminophen/Codeine Phosphate) 1 Each Tablet 1 Tab PO PRN Q4-6HRS PRN MDD 6 Tablet(s) 5 Days Lantus (Insulin Glargine,Hum.rec.anlog) 100 Unit/1 Ml Vial 10 Unit SQ QHS 30 Days [Nicotine 21MG] 1 PATCH Patch 1 Patch TD DAILY 30 Days Reported Valium (Diazepam) 10 Mg Tablet 10 Mg PO TID Seroquel (Quetiapine Fumarate) 100 Mg Tablet 100 Mg PO HS Remeron (Mirtazapine) 30 Mg Tablet 30 Mg PO DAILY Celexa (Citalopram Hydrobromide) 20 Mg Tablet 20 Mg PO DAILY ROS: Review of Systems Review of System REVIEW OF SYSTEMS: GENERAL: Denies weakness SKIN: No bruising, hair changes or rashes. EYES: No blurred, double or loss of vision. NOSE AND THROAT: No history of nosebleeds, hoarseness or sore throat. HEART: No history of palpitations, chest pain or shortness of breath on exertion. LUNGS: Denies cough, hemoptysis, wheezing or shortness of breath. GASTROINTESTINAL: Denies changes in appetite, nausea, vomiting, diarrhea or constipation. GENITOURINARY: No history of frequency, urgency, hesitancy or nocturia. NEUROLOGIC: Denies history of numbness, tingling, or tremor. PSYCHIATRIC: No history of panic, anxiety or depression. ENDOCRINE: No history of heat or cold intolerance, polyuria or polydipsia. EXTREMITIES: Denies joint pain, pain on walking or stiffness. Physical Exam: Vital Signs: Vital Signs Date Time Temp Pulse Resp B/P (MAP) Pulse Ox O2 Delivery O2 Flow Rate FiO2 02/23/20 11:00 99.0 98 18 106/64 (78) 98 Room Air 99.0 Physcial Exam: GEN: No apparent distress. Alert and oriented HEENT: Normal cephalic, atraumatic, external auditory canals are patent EYES: Extraocular muscles are intact, pupil are equally round and reactive to light and accommodation MUSCULOSKELETAL: Well developed , well nourished, good range of motion ENDOCRINE: No thyromegaly was palpated LYMPHATICS: No cervical chain or axillary nodes were noted HEMATOPOIETIC: No bruising NECK: Supple, no JVD, no thyromegaly was noted LUNGS: Clear to auscultation in all lung wong without rhonchi or wheezing HEART: RRR, S!, S2 present. Peripheral pulses intact, no obvious murmurs noted ABDOMEN: Soft, nontender. Positive bowel sounds, no organomegaly, normal bowel sounds EXTREMITIES: Patient has lesions on B/L LEs at meth injection sites. Wound is present on right lower extremity NEUROLOGIC: Normal speech and tone. A&O x 3, moves all extremities, no obvious focal deficits PSYCHIATRIC: Normal affect, normal mood. Stable SKIN: No ulcerations or rashes, good skin turgor, no jaundice VASCULAR: Good capillary refill, neurovascular bundle appears to be intact Labs: Labs: Laboratory Tests Test 02/21/20 20:00 02/21/20 22:07 02/22/20 00:03 02/22/20 00:30 White Blood Count 8.8 x10^3/uL (4.0-11.0) 7.6 x10^3/uL (4.0-11.0) Red Blood Count 4.29 x10^6/uL (4.30-5.70) 4.82 x10^6/uL (4.30-5.70) Hemoglobin 11.6 g/dL (13.0-17.5) 12.7 g/dL (13.0-17.5) Hematocrit 35.0 % (39.0-53.0) 39.1 % (39.0-53.0) Mean Corpuscular Volume 82 fL (79-100) 81 fL (79-100) Mean Corpuscular Hemoglobin 27 pg (25-35) 26 pg (25-35) Mean Corpuscular Hemoglobin Concent 33 g/dL (31-37) 32 g/dL (31-37) Red Cell Distribution Width 14.1 % (11.5-14.5) 14.6 % (11.5-14.5) Platelet Count 349 x10^3/uL (140-400) 345 x10^3/uL (140-400) Neutrophils (%) (Auto) 62 % (31-73) 57 % (31-73) Lymphocytes (%) (Auto) 29 % (24-48) 34 % (24-48) Monocytes (%) (Auto) 7 % (0-9) 7 % (0-9) Eosinophils (%) (Auto) 1 % (0-3) 2 % (0-3) Basophils (%) (Auto) 1 % (0-3) 1 % (0-3) Neutrophils # (Auto) 5.4 x10^3/uL (1.8-7.7) 4.3 x10^3/uL (1.8-7.7) Lymphocytes # (Auto) 2.5 x10^3/uL (1.0-4.8) 2.6 x10^3/uL (1.0-4.8) Monocytes # (Auto) 0.6 x10^3/uL (0.0-1.1) 0.5 x10^3/uL (0.0-1.1) Eosinophils # (Auto) 0.1 x10^3/uL (0.0-0.7) 0.1 x10^3/uL (0.0-0.7) Basophils # (Auto) 0.1 x10^3/uL (0.0-0.2) 0.1 x10^3/uL (0.0-0.2) Sodium Level 129 mmol/L (136-145) 136 mmol/L (136-145) Potassium Level 4.2 mmol/L (3.5-5.1) 3.5 mmol/L (3.5-5.1) Chloride Level 93 mmol/L (98-107) 98 mmol/L (98-107) Carbon Dioxide Level 31 mmol/L (21-32) 31 mmol/L (21-32) Anion Gap 5 (6-14) 7 (6-14) Blood Urea Nitrogen 13 mg/dL (8-26) 11 mg/dL (8-26) Creatinine 1.0 mg/dL (0.7-1.3) 0.8 mg/dL (0.7-1.3) Estimated GFR (Cockcroft-Gault) 78.8 101.9 BUN/Creatinine Ratio 13 (6-20) Glucose Level 609 mg/dL (70-99) 193 mg/dL (70-99) Lactic Acid Level 2.6 mmol/L (0.4-2.0) 2.0 mmol/L (0.4-2.0) Calcium Level 8.3 mg/dL (8.5-10.1) 8.1 mg/dL (8.5-10.1) Magnesium Level 2.0 mg/dL (1.8-2.4) Total Bilirubin 0.2 mg/dL (0.2-1.0) Aspartate Amino Transf (AST/SGOT) 25 U/L (15-37) Alanine Aminotransferase (ALT/SGPT) 34 U/L (16-63) Alkaline Phosphatase 146 U/L (46-116) Troponin I Quantitative < 0.017 ng/mL (0.000-0.055) VF-Uej-C-Type Natriuretic Peptide 284 pg/mL (0-124) Total Protein 7.6 g/dL (6.4-8.2) Albumin 3.1 g/dL (3.4-5.0) Albumin/Globulin Ratio 0.7 (1.0-1.7) Glucose (Fingerstick) 408 mg/dL (70-99) 272 mg/dL (70-99) Test 02/22/20 07:43 02/22/20 11:52 02/22/20 12:47 02/22/20 16:41 Glucose (Fingerstick) 449 mg/dL (70-99) 325 mg/dL (70-99) 220 mg/dL (70-99) Sodium Level 136 mmol/L (136-145) Potassium Level 4.1 mmol/L (3.5-5.1) Chloride Level 99 mmol/L (98-107) Carbon Dioxide Level 32 mmol/L (21-32) Anion Gap 5 (6-14) Blood Urea Nitrogen 12 mg/dL (8-26) Creatinine 0.7 mg/dL (0.7-1.3) Estimated GFR (Cockcroft-Gault) 118.9 BUN/Creatinine Ratio 17 (6-20) Glucose Level 286 mg/dL (70-99) Calcium Level 8.6 mg/dL (8.5-10.1) Total Bilirubin 0.3 mg/dL (0.2-1.0) Aspartate Amino Transf (AST/SGOT) 28 U/L (15-37) Alanine Aminotransferase (ALT/SGPT) 42 U/L (16-63) Alkaline Phosphatase 146 U/L (46-116) Total Protein 8.0 g/dL (6.4-8.2) Albumin 3.1 g/dL (3.4-5.0) Albumin/Globulin Ratio 0.6 (1.0-1.7) Test 02/22/20 20:05 02/23/20 08:57 02/23/20 11:18 Glucose (Fingerstick) 249 mg/dL (70-99) 451 mg/dL (70-99) 319 mg/dL (70-99) Laboratory Tests Test 02/22/20 12:47 02/22/20 16:41 02/22/20 20:05 02/23/20 08:57 Sodium Level 136 mmol/L (136-145) Potassium Level 4.1 mmol/L (3.5-5.1) Chloride Level 99 mmol/L (98-107) Carbon Dioxide Level 32 mmol/L (21-32) Anion Gap 5 (6-14) Blood Urea Nitrogen 12 mg/dL (8-26) Creatinine 0.7 mg/dL (0.7-1.3) Estimated GFR (Cockcroft-Gault) 118.9 BUN/Creatinine Ratio 17 (6-20) Glucose Level 286 mg/dL (70-99) Calcium Level 8.6 mg/dL (8.5-10.1) Total Bilirubin 0.3 mg/dL (0.2-1.0) Aspartate Amino Transf (AST/SGOT) 28 U/L (15-37) Alanine Aminotransferase (ALT/SGPT) 42 U/L (16-63) Alkaline Phosphatase 146 U/L (46-116) Total Protein 8.0 g/dL (6.4-8.2) Albumin 3.1 g/dL (3.4-5.0) Albumin/Globulin Ratio 0.6 (1.0-1.7) Glucose (Fingerstick) 220 mg/dL (70-99) 249 mg/dL (70-99) 451 mg/dL (70-99) Test 02/23/20 11:18 Glucose (Fingerstick) 319 mg/dL (70-99) Images: Images CHEST PA LATERAL History: Shortness of breath Comparison: October 12, 2017 Findings: 2 views of the chest are submitted. There is no infiltrate, pneumothorax, or effusion. Pericardial cardiac silhouette is within normal limits in size. There may be emphysema. Some opacity projecting over the left apical region on the AP view is believed to be artifactual given the defined medial margin. Lower extremity CT Impression: 1. There is no convincing infiltrate. There may be emphysema. IMPRESSION: No focal fluid collection or radiopaque foreign body identified. Exposure: One or more of the following in the visualized dose reduction techniques were utilized for this examination: 1. Automated exposure control 2. Adjustment of the MA and/or KV according to patient size 3. Use of iterative of reconstructive technique Assessment/Plan Assessment/Plan Cellulitis of the right lower extremity with wound ulcer Diabetes mellitus type 2 Depression/anxiety History of IV drug abuse Admit to medicine Continue empiric antibiotics IV Infectious disease consult Lovenox for DVT prophylaxis Insulin sliding scale and Accu-Cheks ADA diet Full code Discussed with RN and SW Dispo: Inpatient care Surrogate decision maker is self MAGDA TEIXEIRA MD Feb 23, 2020 12:06
[2020-02-23 15:00] VITALS: BP 121/76
[2020-02-23 19:00] VITALS: BP 128/75
[2020-02-23] MEDS: diazePAM 5 MG TABLET PO SCH (20:51)
[2020-02-23] MEDS: INSULIN GLARGINE SYRINGE. SQ SCH (20:56)
[2020-02-23] MEDS ORDERED: QUEtiapine 100 MG TABLET. PO SCH (21:00)
[2020-02-23 23:00] VITALS: BP 110/70
[2020-02-24 03:00] VITALS: BP 116/72
[2020-02-24 07:00] VITALS: BP 117/67
--- NOTE | 2020-02-24 08:43 | PDOC ---
Infectious Disease Note Subjective Subjective pt is feeling fine ROS ROS no n/v/d/sob Vital Sign Vital Signs Vital Signs Date Time Temp Pulse Resp B/P (MAP) Pulse Ox O2 Delivery O2 Flow Rate FiO2 02/24/20 07:00 98.2 74 19 117/67 (84) 97 Room Air 98.2 Physical Exam PHYSICAL EXAM GENERAL: Alert and oriented gentleman, not in distress. VITAL SIGNS: Stable. Afebrile. HEENT: NAD. NECK: Supple, no JVP, no lymphadenopathy. LUNGS: Clear. HEART: S1, S2 regular. ABDOMEN: Benign. EXTREMITIES: No edema or cyanosis. The patient does have a mild small superficial wound on the right leg. The patient also has IV drug use, scars in multiple areas in the leg and the patient does not have any signs of cellulitis or any other infection. NEUROLOGIC: The patient is alert, awake and appropriate. No focal neurologic deficit. Labs Lab Laboratory Tests Test 02/23/20 08:57 02/23/20 11:18 02/23/20 16:32 02/23/20 20:18 Glucose (Fingerstick) 451 mg/dL (70-99) 319 mg/dL (70-99) 242 mg/dL (70-99) 258 mg/dL (70-99) Test 02/24/20 07:37 Glucose (Fingerstick) 298 mg/dL (70-99) Micro Microbiology 02/21/20 Blood Culture - Final, Complete Objective Assessment IMPRESSION: 1. Intravenous drug use. 2. Chronic pain syndrome. 3. Small superficial right leg wound. 4. BC + , 1/2 G + cocci , likely contaminant, ID pending Plan Plan of Care BC if coag neg staph, d/c on po doxy if Staph Aureus , then will need iv antibiotics FREDDIE SOOD MD Feb 24, 2020 08:43
[2020-02-24] MEDS: DOXYCYCLINE HYCLATE 100 MG TABLET PO SCH (08:48)
[2020-02-24] MEDS: diazePAM 5 MG TABLET PO SCH ×2 (08:48→15:41)
[2020-02-24] MEDS: INSULIN LISPRO 300 UNITS/3 ML VIAL. SQ SCH ×2 (08:53→12:14)
[2020-02-24] MEDS ORDERED: NICOTINE 21MG PATCH. TD SCH (09:00)
[2020-02-24] MEDS ORDERED: CITALOPRAM 20 MG TABLET. PO SCH (09:00)
[2020-02-24] MEDS ORDERED: MIRTAZAPINE 15 MG TABLET PO SCH (09:00)
--- NOTE | 2020-02-24 09:04 | PDOC ---
PROGRESS NOTES Date of Service: DATE: 02/24/20 TIME: 09:03 Chief Complaint Chief Complaint DISCHARGE DX Patient presents with right leg pain on the anterior portion of tibia. DIABETES , UNCONTROLLED BC if coag neg staph, d/c on po doxy 100MG PO BID X 10 DAYS if Staph Aureus , will need iv antibiotics PLAN CHECK PROCALCITONIN, A1C INC LANTUS TO 15 UNITS SQ HS OK WITH ID FOR D/C TODAY D/C PLANNING 33 MIN History of Present Illness History of Present Illness 02/24/2020 Patient seen and examined Discussed with RN Chart reviewed Patient resting with NAD Patient was denied admittance to inpatient psych because he did not meet the criteria Re-discharge to home 02/22/2020 Patient is alert and oriented upon exam Patient endorses methamphetamine and marijuana use Patient says that he stopped injected and switched to smoking his meth after he realized it was causing the injection sites to burn Patient says he has neuropathy Patient requested social work case manager Consulted with ID Vitals Vitals Vital Signs Date Time Temp Pulse Resp B/P (MAP) Pulse Ox O2 Delivery O2 Flow Rate FiO2 02/24/20 08:00 Room Air 02/24/20 07:00 98.2 74 19 117/67 (84) 97 98.2 Physical Exam Physical Exam GENERAL: Alert and oriented gentleman, not in distress. VITAL SIGNS: Stable. Afebrile. HEENT: NAD. NECK: Supple, no JVP, no lymphadenopathy. LUNGS: Clear. HEART: S1, S2 regular. ABDOMEN: Benign. EXTREMITIES: No edema or cyanosis. The patient does have a mild small superficial wound on the right leg. The patient also has IV drug use, scars in multiple areas in the leg and the patient does not have any signs of cellulitis or any other infection. NEUROLOGIC: The patient is alert, awake and appropriate. No focal neurologic deficit. General: Alert, Oriented X3, Cooperative, No acute distress Heart: Regular rate, Normal S1 Lungs: Wheezing Abdomen: Normal bowel sounds, Soft, No hepatosplenomegaly Extremities: No clubbing, No cyanosis, No edema Skin: Other (Patient has lesions on B/L LEs at meth injection sites. There is a wound present on right LE) Labs LABS History: Shortness of breath Comparison: October 12, 2017 Findings: 2 views of the chest are submitted. There is no infiltrate, pneumothorax, or effusion. Pericardial cardiac silhouette is within normal limits in size. There may be emphysema. Some opacity projecting over the left apical region on the AP view is believed to be artifactual given the defined medial margin. Impression: 1. There is no convincing infiltrate. There may be emphysema. Electronically signed by: Casper Abdul MD (02/21/2020 7:46 PM) [facility] DICTATED and SIGNED BY: CASPER ABDUL MD DATE: 02/21/201945 PATIENT: GEOFF COTTON ACCOUNT: [id number] : 1970 LOCATION: ER AGE: 50 SEX: M EXAM STATUS: REG ER ORD. PHYSICIAN: NASIMA CORDERO DO REASON: RLE wounds with h/o IVDU. PROCEDURE: CT LOW EXTREMITY W/CONTRAST RT Exam: CT right lower extremity with contrast INDICATION: Right lower extremity wounds with history of IV drug use TECHNIQUE: Sequential axial images through the right lower extremity obtained following the administration of 75 mL of Omni 300 IV contrast. Sagittal and coronal reformatted images were reconstructed from the axial data and reviewed. Comparisons: None FINDINGS: Bone mineralization is normal. No acute or healed fractures are identified. Joint spaces are well-maintained. No evidence for vascular injury. There is admixture of contrast noted at the popliteal vein. No focal fluid collection or or radiopaque foreign body identified. Visualized musculature is unremarkable. IMPRESSION: No focal fluid collection or radiopaque foreign body identified. Exposure: One or more of the following in the visualized dose reduction techniques were utilized for this examination: 1. Automated exposure control 2. Adjustment of the MA and/or KV according to patient size 3. Use of iterative of reconstructive technique Electronically signed by: Loreto Rivera MD (02/21/2020 9:42 PM) [id number] DICTATED and SIGNED BY: LORETO RIVERA MD Laboratory Tests Test 02/23/20 11:18 8/26/20 16:32 02/23/20:18 02/24/20 07:37 Glucose (Fingerstick) 319 mg/dL (70-99) 242 mg/dL (70-99) 258 mg/dL (70-99) 298 mg/dL (70-99) Assessment and Plan Assessmemt and Plan Problems Medical Problems: (1) Cellulitis of right lower extremity Status: Acute (2) Hyperglycemia Status: Acute (3) IVDU (intravenous drug user) Status: Acute Comment Review of Relevant I have reviewed the following items oli (where applicable) has been applied. Labs Laboratory Tests Test 02/22/20 11:52 02/22/20 12:47 02/22/20 16:41 02/22/20 20:05 Glucose (Fingerstick) 325 mg/dL (70-99) 220 mg/dL (70-99) 249 mg/dL (70-99) Sodium Level 136 mmol/L (136-145) Potassium Level 4.1 mmol/L (3.5-5.1) Chloride Level 99 mmol/L (98-107) Carbon Dioxide Level 32 mmol/L (21-32) Anion Gap 5 (6-14) Blood Urea Nitrogen 12 mg/dL (8-26) Creatinine 0.7 mg/dL (0.7-1.3) Estimated GFR (Cockcroft-Gault) 118.9 BUN/Creatinine Ratio 17 (6-20) Glucose Level 286 mg/dL (70-99) Calcium Level 8.6 mg/dL (8.5-10.1) Total Bilirubin 0.3 mg/dL (0.2-1.0) Aspartate Amino Transf (AST/SGOT) 28 U/L (15-37) Alanine Aminotransferase (ALT/SGPT) 42 U/L (16-63) Alkaline Phosphatase 146 U/L (46-116) Total Protein 8.0 g/dL (6.4-8.2) Albumin 3.1 g/dL (3.4-5.0) Albumin/Globulin Ratio 0.6 (1.0-1.7) Test 02/23/20 08:57 02/23/20 11:18 02/23/20 16:32 02/23/20 20:18 Glucose (Fingerstick) 451 mg/dL (70-99) 319 mg/dL (70-99) 242 mg/dL (70-99) 258 mg/dL (70-99) Test 02/24/20 07:37 Glucose (Fingerstick) 298 mg/dL (70-99) Laboratory Tests Test 02/23/20 11:18 02/23/20 16:32 02/23/20 20:18 02/24/20 07:37 Glucose (Fingerstick) 319 mg/dL (70-99) 242 mg/dL (70-99) 258 mg/dL (70-99) 298 mg/dL (70-99) Microbiology 02/21/20 Blood Culture - Final, Complete Medications Current Medications Vancomycin HCl 2.5 gm/Sodium Chloride 500 ml @ 250 mls/hr 1X ONCE IV ; Start 02/21/20 at 19:00; Stop 02/21/20 at 20:59; Status UNV Ringer's Solution 1,000 ml @ 1,000 mls/hr 1X ONCE IV Last administered on 02/21/20at 19:56; Start 02/21/20 at 19:00; Stop 02/21/20 at 19:59; Status DC Vancomycin HCl 1.25 gm/Sodium Chloride 250 ml @ 166.667 mls/hr 1X ONCE IV Last administered on 02/21/20at 19:57; Start 02/21/20 at 19:30; Stop 02/21/20 at 20:59; Status DC Iohexol (Omnipaque 300 Mg/ml) 75 ml 1X ONCE IV Last administered on 02/21/20at 21:11; Start 02/21/20 at 20:45; Stop 02/21/20 at 20:46; Status DC Info (CONTRAST GIVEN -- Rx MONITORING) 1 each PRN DAILY PRN MC SEE COMMENTS; Start 02/21/20 at 20:45; Stop 02/23/20 at 20:48; Status DC Insulin Glargine (Lantus Syringe) 10 unit QHS SQ Last administered on 02/23/20at 20:56; Start 02/21/20 at 21:00 Insulin Human Regular (HumuLIN R VIAL) 10 unit 1X ONCE IV Last administered on 02/21/20at 23:22; Start 02/21/20 at 21:15; Stop 02/21/20 at 21:16; Status DC Ondansetron HCl (Zofran) 4 mg PRN Q8HRS PRN IV NAUSEA/VOMITING; Start 02/21/20 at 22:15; Stop 02/22/20 at 22:14; Status DC Ringer's Solution 1,000 ml @ 200 mls/hr 1X ONCE IV Last administered on 02/21/20at 23:23; Start 02/21/20 at 22:15; Stop 02/22/20 at 03:14; Status DC Insulin Human Lispro (HumaLOG) 0-9 UNITS TIDWMEALS SQ Last administered on 02/24/20at 08:53; Start 02/22/20 at 08:20 Dextrose (Dextrose 50%-Water Syringe) 12.5 gm PRN Q15MIN PRN IV SEE COMMENTS; Start 02/22/20 at 08:15 Doxycycline Hyclate (Vibra-Tab) 100 mg BID PO Last administered on 02/24/20at 08:48; Start 02/22/20 at 10:00 Citalopram Hydrobromide (CeleXA) 20 mg DAILY PO Last administered on 02/24/20 08:48; Start 02/24/20 at 09:00 Quetiapine Fumarate (SEROquel) 100 mg HS PO Last administered on 02/23/20at 20:51; Start 02/23/20 at 21:00 Diazepam (Valium) 10 mg TID PO Last administered on 02/24/20at 08:48; Start 02/23/20 at 21:00 Mirtazapine (Remeron) 30 mg DAILY PO Last administered on 02/24/20 08:48; Start 02/24/20 at 09:00 Nicotine (Nicoderm Cq 21mg) 1 patch DAILY TD Last administered on 02/24/20at 08:48; Start 02/24/20 at 09:00 Active Scripts Active Tylenol With Codeine #3 Tablet (Acetaminophen/Codeine Phosphate) 1 Each Tablet 1 Tab PO PRN Q4-6HRS PRN MDD 6 Tablet(s) 5 Days Lantus (Insulin Glargine,Hum.rec.anlog) 100 Unit/1 Ml Vial 10 Unit SQ QHS 30 Days [Nicotine 21MG] 1 PATCH Patch 1 Patch TD DAILY 30 Days Reported Valium (Diazepam) 10 Mg Tablet 10 Mg PO TID Seroquel (Quetiapine Fumarate) 100 Mg Tablet 100 Mg PO HS Remeron (Mirtazapine) 30 Mg Tablet 30 Mg PO DAILY Celexa (Citalopram Hydrobromide) 20 Mg Tablet 20 Mg PO DAILY Vitals/I & O Vital Sign - Last 24 Hours 02/23/20 02/23/20 02/23/20 02/23/20 11:00 15:00 19:00 20:30 Temp 99.0 98.6 98.5 99.0 98.6 98.5 Pulse 98 89 105 Resp 19 B/P (MAP) 106/64 (78) 121/76 (91) 128/75 (92) Pulse Ox 98 98 98 O2 Delivery Room Air Room Air Room Air Room Air 02/23/20 02/24/20 02/24/20 02/24/20 23:00 03:00 07:00 08:00 Temp 98.2 97.8 98.2 98.2 97.8 98.2 Pulse 106 76 74 Resp 19 B/P (MAP) 110/70 (83) 116/72 (87) 117/67 (84) Pulse Ox 96 97 97 O2 Delivery Room Air Room Air Room Air Room Air Intake and Output 02/23/20 02/23/20 02/24/20 15:00 23:00 07:00 Intake Total 750 ml 1000 ml 480 ml Balance 750 ml 1000 ml 480 ml Justicifation of Admission Dx: Justifications for Admission: Justification of Admission Dx: Yes (IVDU) Cellulitis: Cellulitis ANTOINETTE THOMPSON MD Feb 24, 2020 09:04
--- NOTE | 2020-02-24 10:14 | NUR ---
SW following. Discussed with RN, ID cultures pending. Per Dr. Taveras, if STAPH pt will need IV abx, if not STAPH - pt can discharge on PO doxy. SW will continue to follow.
[2020-02-24 11:00] VITALS: BP 122/55
[2020-02-24] MEDS ORDERED: INSULIN LISPRO 300 UNITS/3 ML VIAL. SQ ONE (12:15)
--- NOTE | 2020-02-24 13:45 | PDOC3 ---
Discharge Summary Date of Admission: Feb 23, 2020 Date of Discharge: Feb 24, 2020 Follow-Up: 3-5 days Admitting Diagnosis comment: DISCHARGE DX Patient presents with right leg pain on the anterior portion of tibia. DIABETES , UNCONTROLLED BC if coag neg staph, d/c on po doxy 100MG PO BID X 10 DAYS if Staph Aureus , will need iv antibiotics PLAN CHECK PROCALCITONIN, A1C INC LANTUS TO 15 UNITS SQ HS OK WITH ID FOR D/C TODAY SEE PCP IN 2 DAYS D/C PLANNING 33 MIN History of Present Illness History of Present Illness 02/24/2020 Patient seen and examined Discussed with RN Chart reviewed Patient resting with NAD Patient was denied admittance to inpatient psych because he did not meet the criteria Re-discharge to home 02/22/2020 Patient is alert and oriented upon exam Patient endorses methamphetamine and marijuana use Patient says that he stopped injected and switched to smoking his meth after he realized it was causing the injection sites to burn Patient says he has neuropathy Patient requested transition social worker Consulted with ID Vitals Vitals Vital Signs Date Time Temp Pulse Resp B/P (MAP) Pulse Ox O2 Delivery O2 Flow Rate FiO2 02/24/20 08:00 Room Air 02/24/20 07:00 98.2 74 19 117/67 (84) 97 98.2 Physical Exam Physical Exam GENERAL: Alert and oriented gentleman, not in distress. VITAL SIGNS: Stable. Afebrile. HEENT: NAD. NECK: Supple, no JVP, no lymphadenopathy. LUNGS: Clear. HEART: S1, S2 regular. ABDOMEN: Benign. EXTREMITIES: No edema or cyanosis. The patient does have a mild small superficial wound on the right leg. The patient also has IV drug use, scars in multiple areas in the leg and the patient does not have any signs of cellulitis or any other infection. NEUROLOGIC: The patient is alert, awake and appropriate. No focal neurologic deficit. General: Alert, Oriented X3, Cooperative, No acute distress Heart: Regular rate, Normal S1 Lungs: Wheezing Abdomen: Normal bowel sounds, Soft, No hepatosplenomegaly Extremities: No clubbing, No cyanosis, No edema Skin: Other (Patient has lesions on B/L LEs at meth injection sites. There is a wound present on right LE) Labs FINAL DIAGNOSIS Problems Medical Problems: (1) Cellulitis of right lower extremity Status: Acute (2) Hyperglycemia Status: Acute (3) IVDU (intravenous drug user) Status: Acute Brief Hospital Course Mr. Shultz is a 50 old [sex] who presented with [ ] Discharge Medications Current Medications Vancomycin HCl 2.5 gm/Sodium Chloride 500 ml @ 250 mls/hr 1X ONCE IV ; Start 02/21/20 at 19:00; Stop 02/21/20 at 20:59; Status UNV Ringer's Solution 1,000 ml @ 1,000 mls/hr 1X ONCE IV Last administered on 01/29 10/17at 19:56; Start 02/21/20 at 19:00; Stop 02/21/20 at 19:59; Status DC Vancomycin HCl 1.25 gm/Sodium Chloride 250 ml @ 166.667 mls/hr 1X ONCE IV Last administered on 02/21/20at 19:57; Start 02/21/20 at 19:30; Stop 02/21/20 at 20:59; Status DC Iohexol (Omnipaque 300 Mg/ml) 75 ml 1X ONCE IV Last administered on 02/21/20at 21:11; Start 02/21/20 at 20:45; Stop 02/21/20 at 20:46; Status DC Info (CONTRAST GIVEN -- Rx MONITORING) 1 each PRN DAILY PRN MC SEE COMMENTS; Start 02/21/20 at 20:45; Stop 02/23/20 at 20:48; Status DC Insulin Glargine (Lantus Syringe) 10 unit QHS SQ Last administered on 02/23/20at 20:56; Start 02/21/20 at 21:00 Insulin Human Regular (HumuLIN R VIAL) 10 unit 1X ONCE IV Last administered on 02/21/20at 23:22; Start 02/21/20 at 21:15; Stop 02/21/20 at 21:16; Status DC Ondansetron HCl (Zofran) 4 mg PRN Q8HRS PRN IV NAUSEA/VOMITING; Start 02/21/20 at 22:15; Stop 02/22/20 at 22:14; Status DC Ringer's Solution 1,000 ml @ 200 mls/hr 1X ONCE IV Last administered on 02/21/20at 23:23; Start 02/21/20 at 22:15; Stop 02/22/20 at 03:14; Status DC Insulin Human Lispro (HumaLOG) 0-9 UNITS TIDWMEALS SQ Last administered on 02/24/20at 12:14; Start 02/22/20 at 08:20 Dextrose (Dextrose 50%-Water Syringe) 12.5 gm PRN Q15MIN PRN IV SEE COMMENTS; Start 02/22/20 at 08:15 Doxycycline Hyclate (Vibra-Tab) 100 mg BID PO Last administered on 02/24/20at 08:48; Start 02/22/20 at 10:00 Citalopram Hydrobromide (CeleXA) 20 mg DAILY PO Last administered on 02/24/20at 08:48; Start 02/24/20 at 09:00 Quetiapine Fumarate (SEROquel) 100 mg HS PO Last administered on 02/23/20at 20:51; Start 02/23/20 at 21:00 Diazepam (Valium) 10 mg TID PO Last administered on 02/24/20at 08:48; Start 02/23/20 at 21:00 Mirtazapine (Remeron) 30 mg DAILY PO Last administered on 02/24/20at 08:48; Start 02/24/20 at 09:00 Nicotine (Nicoderm Cq 21mg) 1 patch DAILY TD Last administered on 02/24/20at 08:48; Start 02/24/20 at 09:00 Insulin Human Lispro (HumaLOG) 4 units 1X ONCE SQ Last administered on 02/24/20at 12:15; Start 02/24/20 at 12:15; Stop 02/24/20 at 12:16; Status DC Active Scripts Active Tylenol With Codeine #3 Tablet (Acetaminophen/Codeine Phosphate) 1 Each Tablet 1 Tab PO PRN Q4-6HRS PRN MDD 6 Tablet(s) 5 Days Lantus (Insulin Glargine,Hum.rec.anlog) 100 Unit/1 Ml Vial 10 Unit SQ QHS 30 Days [Nicotine 21MG] 1 PATCH Patch 1 Patch TD DAILY 30 Days Reported Valium (Diazepam) 10 Mg Tablet 10 Mg PO TID Seroquel (Quetiapine Fumarate) 100 Mg Tablet 100 Mg PO HS Remeron (Mirtazapine) 30 Mg Tablet 30 Mg PO DAILY Celexa (Citalopram Hydrobromide) 20 Mg Tablet 20 Mg PO DAILY Vital Signs Vital Signs Date Time Temp Pulse Resp B/P (MAP) Pulse Ox O2 Delivery O2 Flow Rate FiO2 02/24/20 11:00 98.0 88 18 122/55 (77) 97 Room Air 98.0 Labs Laboratory Tests Test 02/22/20 16:41 02/22/20 20:05 02/23/20 08:57 02/23/20 11:18 Glucose (Fingerstick) 220 mg/dL (70-99) 249 mg/dL (70-99) 451 mg/dL (70-99) 319 mg/dL (70-99) Test 02/23/20 16:32 02/23/20 20:18 02/24/20 07:37 02/24/20 11:00 Glucose (Fingerstick) 242 mg/dL (70-99) 258 mg/dL (70-99) 298 mg/dL (70-99) Procalcitonin 0.34 ng/mL (0.00-0.10) Test 02/24/20 11:17 Glucose (Fingerstick) 371 mg/dL (70-99) Laboratory Tests Test 02/23/20 16:32 02/23/20 20:18 02/24/20 07:37 02/24/20 11:00 Glucose (Fingerstick) 242 mg/dL (70-99) 258 mg/dL (70-99) 298 mg/dL (70-99) Procalcitonin 0.34 ng/mL (0.00-0.10) Test 02/24/20 11:17 Glucose (Fingerstick) 371 mg/dL (70-99) Allergies Allergies Coded Allergies Type Severity Reaction Last Updated Verified Penicillins Allergy Intermediate 09/15/16 Yes Justicifation of Admission Dx: Justifications for Admission: Justification of Admission Dx: Yes (IVDU) Cellulitis: Cellulitis ANTOINETTE THOMPSON MD Feb 24, 2020 13:45
[2020-02-24] MEDS ORDERED: DOXY100T PO (13:48)
[2020-02-24] MEDS ORDERED: INSU100V35 SQ (13:48)
[2020-02-24] MEDS ORDERED: INSU100V8 SQ (13:48)
--- NOTE | 2020-02-24 13:49 | DISCH ---
DISCHARGE INSTRUCTIONS Condition on Discharge Condition on Discharge: Guarded Activity After Discharge Activity Instructions for Disc: No restrictions, Activity as tolerated Driving Instructions after Dis: Do not drive, Do not drive today Weight Bearing Status after Di: No restrictions Diet after Discharge Diet after Discharge: Diabetic No Calorie Level Wound Incision Care Wound/Incision Care: Ice to area for comfort Checks after Discharge Checks after discharge: Check blood press - daily, Check blood sugar, ac/hs Contacting the DR. after DC Call your doctor for: If your condition worsens Treatment/Equipment after DC Adaptive Equipment Issued: None Warfarin Follow-Up Warfarin Follow UP: SEE PCP IN 2 DAYS ANTOINETTE THOMPSON MD Feb 24, 2020 13:49
[2020-02-24 15:00] VITALS: BP 126/84
--- NOTE | 2020-02-24 16:45 | NUR ---
Pt discharged home with self care. Discharge instructions and prescriptions discussed. Wound pics taken and dressing changed. IV removed. Pt denied questions and verbalized understanding. Pt ambulated to main entrance and was secured in cab.
[2020-02-25 07:17] LABS: HEMOGLOBIN A1C 17.8 % (4.8-5.6)
== END 2020-02-24 16:49 | disposition home or self-care (01) | DRG 871 ==
LOC: ER 18:26 → 4 NORTH 21:43
PROVIDERS: ADMIT Internal Medicine; ATTEND Internal Medicine
DX: A41.9 Sepsis, unspecified organism (principal); E11.00 Type 2 diabetes mellitus with hyperosmolarity without nonketotic hyperglycemic-hyperosmolar coma (NKHHC); L03.115 Cellulitis of right lower limb; F31.9 Bipolar disorder, unspecified; F20.9 Schizophrenia, unspecified; I10 Essential (primary) hypertension; E78.5 Hyperlipidemia, unspecified; F15.10 Other stimulant abuse, uncomplicated; F12.90 Cannabis use, unspecified, uncomplicated; E11.40 Type 2 diabetes mellitus with diabetic neuropathy, unspecified; G89.4 Chronic pain syndrome; F17.210 Nicotine dependence, cigarettes, uncomplicated; Z79.4 Long term (current) use of insulin; Z90.49 Acquired absence of other specified parts of digestive tract; Z90.89 Acquired absence of other organs; Z88.0 Allergy status to penicillin
CPT/HCPCS: 36415; 71046; 73701; 80048; 80053; 82962; 83036; 83605; 83735; 83880; 84145; 84484; 85025; 87040; 87077; 87186; 87205; 93005; 96365; 96366; 99285; J1815; J3370; J7050; J7120; Q9967; G0378; J7030

== ENCOUNTER 2020-07-29 03:24 | Inpatient (IN) | payer MEDICARE, MEDICAID ==
[~2020-07-29] VITALS: Ht 172.7 cm; Wt 51.1 kg
[~2020-07-29 03:24] MED LIST changes: +DOXY100T PO; +INSU100V35 SQ; +MIRT-34 PO; -MIRT30TA PO
[2020-07-29] MEDS ORDERED: IV NORMAL SALINE 500ML BAG 500 ML IV ONE (04:00)
[2020-07-29 04:56] LABS: BASO % 1 % (0-3); EOS # 0.2 x10^3/uL (0.0-0.7); EOS % 2 % (0-3); HEMATOCRIT 25.7 % (39.0-53.0); HEMOGLOBIN 8.4 g/dL (13.0-17.5); LYMPH # 1.8 x10^3/uL (1.0-4.8); LYMPH % 23 % (24-48); MEAN CORPUSCULAR HEMOGLOBIN 25 pg (25-35); MEAN CORPUSCULAR HGB CONC 33 g/dL (31-37); MEAN CORPUSCULAR VOLUME 78 fL (79-100); MONO # 0.6 x10^3/uL (0.0-1.1); MONO % 8 % (0-9); NEUT # 5.1 x10^3/uL (1.8-7.7); NEUT % 66 % (31-73); PLATELET COUNT 490 x10^3/uL (140-400); RED BLOOD COUNT 3.31 x10^6/uL (4.30-5.70); RED CELL DISTRIBUTION WIDTH 15.9 % (11.5-14.5); WHITE BLOOD COUNT 7.7 x10^3/uL (4.0-11.0)
--- NOTE | 2020-07-29 04:56 | RAD ---
BILATERAL TIBIA FIBULA AP LATERAL Clinical Indication: Reason: wounds and swelling / Comparison: None. Findings: Right: The knee and ankle joints are grossly intact. There is no acute fracture or dislocation. There is sof t tissue injury of the medial mid calf. There is soft tissue injury of the posterior and medial dista l calf. There is no significant soft tissue swelling. No radiopaque foreign body is identified. Left: Please note the lateral tibia fibula image is under the foot radiographs. The knee and ankle joints are grossly intact. There is patellar enthesophyte. There is no acute fract ure or dislocation. There is no bone erosion. There is soft tissue injury of the medial mid calf. The re is no significant soft tissue swelling. No radiopaque foreign body is identified. IMPRESSION: No acute fracture. Electronically signed by: Vamshi Bush MD (07/29/2020 4:51 AM) [facility]
--- NOTE | 2020-07-29 04:57 | RAD ---
XR FEET 3 VIEWS Clinical Indication: Reason: wounds and swelling / : Comparison: None. Findings: Left: There is no obvious bone erosion. Arterial calcification is seen. There is interphalangeal joint spac e narrowing. No acute fracture is seen. Mild dorsal soft tissue swelling of the foot. The mineralizat ion is normal. Right: Arterial calcification. No obvious bone erosion. No acute fracture. Mild hallux valgus. There are mod erate dorsal osteophytes of the midfoot. There is no significant soft tissue swelling. Probable hamme rtoe deformities of the second through fifth toes. IMPRESSION: No acute fracture. Electronically signed by: Vamshi Bush MD (07/29/2020 4:53 AM) [facility]
--- NOTE | 2020-07-29 05:01 | RAD ---
XR CHEST 1V Clinical Indication: Reason: cough Comparison: Two-view chest, February 21, 2020. Findings: The cardiomediastinal silhouette is normal. Lungs are clear. There is no pneumothorax. No pleural eff usion is appreciated. No acute bone abnormality. IMPRESSION: No acute cardiopulmonary process. Electronically signed by: Vamshi Bush MD (07/29/2020 4:58 AM) [facility]
[2020-07-29 05:08] LABS: CALCIUM 8.2 mg/dL (8.5-10.1); CREATININE 0.6 mg/dL (0.7-1.3); POTASSIUM 3.8 mmol/L (3.5-5.1)
[2020-07-29 05:12] LABS: ALBUMIN 2.8 g/dL (3.4-5.0); ALBUMIN/GLOBULIN RATIO 0.6 (1.0-1.7); C-REACTIVE PROTEIN 5.9 mg/L (0-3.3); MAGNESIUM 1.8 mg/dL (1.8-2.4); TOTAL BILIRUBIN 0.1 mg/dL (0.2-1.0); TOTAL PROTEIN 7.2 g/dL (6.4-8.2)
[2020-07-29] MEDS ORDERED: ONDANSETRON PF 4 MG/2 ML VIAL. IV PRN ×2 (06:00→16:00)
[2020-07-29] MEDS ORDERED: MORPHINE SULFATE 4 MG/ML VIAL. IV PRN (06:00)
[2020-07-29] MEDS ORDERED: ACETAMINOPHEN 325 MG TABLET. PO PRN (06:00)
--- NOTE | 2020-07-29 06:17 | ED.ADGEN ---
Past Medical History Past Medical History: Anxiety, Bipolar, Depression, Diabetes-Type I, Schizophrenia, Other Additional Past Medical Histor: panic attacks blood clots in liver ; meth abuse; Past Surgical History: Cholecystectomy, Tonsillectomy Smoking Status: Current Every Day Smoker Alcohol Use: Occasionally Drug Use: Methamphetamine General Adult EDM: Chief Complaint: CELLULITIS HPI: HPI: Patient is a 50 year [id number] male coming in via EMS for foot pain and swel ling. Patient states he was seen at 5 days ago and diagnosed with cellulitis but has not has prescription filled because it was sent to the pharmacy. Patient has had problems with chronic wounds over the past 4 to 5 months on his lower extremities mostly, has a couple of wounds on his hands. Also for the past 4 to 5 months has had a wound over sacrum that frequently opens up and drains purulent drainage. Denies any fever but states he has had shortness of breath and a cough, loss of smell and taste. Patient has a history of insulin- dependent diabetes. States he has been inpatient at a couple of times but does not continue to follow-up with wound care. Review of Systems: Review of Systems: All other systems within normal limits except for as noted in the HPI Current Medications: Current Medications Medications (Trade) Dose Ordered Sig/Graciela Start Time Stop Time Status Last Admin Dose Admin Acetaminophen (Tylenol) 650 mg PRN Q4HRS PRN 07/29/20 06:00 07/30/20 05:59 Morphine Sulfate (Morphine Sulfate) 4 mg PRN Q2HR PRN 07/29/20 06:00 07/30/20 05:59 Ondansetron HCl (Zofran) 4 mg PRN Q8HRS PRN 07/29/20 06:00 07/30/20 05:59 Sodium Chloride 500 ml @ 500 mls/hr 1X ONCE 07/29/20 04:00 07/29/20 04:59 DC 07/29/20 04:50 500 MLS/HR Allergies: Allergies: Allergies Coded Allergies Type Severity Reaction Last Updated Verified Penicillins Allergy Intermediate 09/15/16 Yes Physical Exam: PE: Constitutional: Well developed, well nourished, no acute distress, cachectic [] HENT: Normocephalic, atraumatic, bilateral external ears normal, nose normal. [] Eyes: PERRLA, conjunctiva normal, no discharge. [] Neck: No rigidity, supple, no stridor. [] Cardiovascular: Regular rate and rhythm, brisk cap refill [] Lungs & Thorax: Non labored symmetric respirations, no tachypnea or respiratory distress [] Abdomen: Soft, nondistended. Skin: Warm, dry, numerous wounds in various stages of healing to plantar aspect of feet, large 1 to posterior right lower leg, multiple on bilateral knees and hands. Open sacral wound with no drainage] Back: Unremarkable Extremities: No deformities, range of motion grossly intact, bilateral pedal edema [] Neurologic: Alert and oriented X 3, no focal deficits noted. [] Psychologic: Affect normal, judgement normal, mood normal. [] Current Patient Data: Labs: Laboratory Tests Test 07/29/20 04:47 White Blood Count 7.7 x10^3/uL (4.0-11.0) Red Blood Count 3.31 x10^6/uL (4.30-5.70) L Hemoglobin 8.4 g/dL (13.0-17.5) L Hematocrit 25.7 % (39.0-53.0) L Mean Corpuscular Volume 78 fL (79-100) L Mean Corpuscular Hemoglobin 25 pg (25-35) Mean Corpuscular Hemoglobin Concent 33 g/dL (31-37) Red Cell Distribution Width 15.9 % (11.5-14.5) H Platelet Count 490 x10^3/uL (140-400) H Neutrophils (%) (Auto) 66 % (31-73) Lymphocytes (%) (Auto) 23 % (24-48) L Monocytes (%) (Auto) 8 % (0-9) Eosinophils (%) (Auto) 2 % (0-3) Basophils (%) (Auto) 1 % (0-3) Neutrophils # (Auto) 5.1 x10^3/uL (1.8-7.7) Lymphocytes # (Auto) 1.8 x10^3/uL (1.0-4.8) Monocytes # (Auto) 0.6 x10^3/uL (0.0-1.1) Eosinophils # (Auto) 0.2 x10^3/uL (0.0-0.7) Basophils # (Auto) 0.0 x10^3/uL (0.0-0.2) D-Dimer (Rita) 0.44 ug/mlFEU (0.00-0.50) Sodium Level 135 mmol/L (136-145) L Potassium Level 3.8 mmol/L (3.5-5.1) Chloride Level 100 mmol/L (98-107) Carbon Dioxide Level 25 mmol/L (21-32) Anion Gap 10 (6-14) Blood Urea Nitrogen 12 mg/dL (8-26) Creatinine 0.6 mg/dL (0.7-1.3) L Estimated GFR (Cockcroft-Gault) 142.0 BUN/Creatinine Ratio 20 (6-20) Glucose Level 335 mg/dL (70-99) H Lactic Acid Level 1.6 mmol/L (0.4-2.0) Calcium Level 8.2 mg/dL (8.5-10.1) L Magnesium Level 1.8 mg/dL (1.8-2.4) Total Bilirubin 0.1 mg/dL (0.2-1.0) L Aspartate Amino Transferase (AST) 20 U/L (15-37) Alanine Aminotransferase (ALT) 32 U/L (16-63) Alkaline Phosphatase 148 U/L (46-116) H C-Reactive Protein, Quantitative 5.9 mg/L (0-3.3) H Total Protein 7.2 g/dL (6.4-8.2) Albumin 2.8 g/dL (3.4-5.0) L Albumin/Globulin Ratio 0.6 (1.0-1.7) L Ethyl Alcohol Level < 10 mg/dL (0-10) Laboratory Tests 07/29/20 04:47 Laboratory Tests 07/29/20 04:47 EKG: EKG: [] Heart Score: Risk Factors: Risk Factors: DM, Current or recent (<one month) smoker, HTN, HLP, family history of CAD, obesity. Risk Scores: Score 0 - 3: 2.5% MACE over next 6 weeks - Discharge Home Score 4 - 6: 20.3% MACE over next 6 weeks - Admit for Clinical Observation Score 7 - 10: 72.7% MACE over next 6 weeks - Early Invasive Strategies Radiology/Procedures: Radiology/Procedures: XR CHEST 1V Clinical Indication: Reason: cough Comparison: Two-view chest, February 21, 2020. Findings: The cardiomediastinal silhouette is normal. Lungs are clear. There is no pneumothorax. No pleural effusion is appreciated. No acute bone abnormality. IMPRESSION: No acute cardiopulmonary process. BILATERAL TIBIA FIBULA AP LATERAL Clinical Indication: Reason: wounds and swelling / Comparison: None. Findings: Right: The knee and ankle joints are grossly intact. There is no acute fracture or dislocation. There is soft tissue injury of the medial mid calf. There is soft tissue injury of the posterior and medial distal calf. There is no significant soft tissue swelling. No radiopaque foreign body is identified. Left: Please note the lateral tibia fibula image is under the foot radiographs. The knee and ankle joints are grossly intact. There is patellar enthesophyte. There is no acute fracture or dislocation. There is no bone erosion. There is so ft tissue injury of the medial mid calf. There is no significant soft tissue swelling. No radiopaque foreign body is identified. IMPRESSION: No acute fracture. XR FEET 3 VIEWS Clinical Indication: Reason: wounds and swelling / : Comparison: None. Findings: Left: There is no obvious bone erosion. Arterial calcification is seen. There is interphalangeal joint space narrowing. No acute fracture is seen. Mild dorsal soft tissue swelling of the foot. The mineralization is normal. Right: Arterial calcification. No obvious bone erosion. No acute fracture. Mild hallux valgus. There are moderate dorsal osteophytes of the midfoot. There is no significant soft tissue swelling. Probable hammertoe deformities of the second through fifth toes. IMPRESSION: No acute fracture. [] Course & Med Decision Making: Course & Med Decision Making Pertinent Labs and Imaging studies reviewed. (See chart for details) With only few CRP. Concern for osteomyelitis and need for wound care for wound, likely has underlying cellulitis. [] Dragon Disclaimer: Dragon Disclaimer: This electronic medical record was generated, in whole or in part, using a voice recognition dictation system. Departure Departure Impression: Primary Impression: Poorly controlled diabetes mellitus Additional Impression: Non-healing wound Disposition: 09 ADMITTED INPT THIS HOSP Admitting Physician: JORGE L Condition: STABLE Referrals: NO PCP (PCP) Problem Qualifiers AMANDA ANTONY MD Jul 29, 2020 06:17
[2020-07-29 06:44] LABS: BARBITURATES NEG (NEG); BENZODIAZEPINES NEG (NEG); CANNABINOIDS POS (NEG); COCAINE NEG (NEG); METHADONE NEG (NEG); OPIATES NEG (NEG); PHENCYCLIDINE NEG (NEG)
[2020-07-29 06:45] LABS: AMPHETAMINE/METHAMPHETAMINE POS (NEG)
[2020-07-29 11:00] VITALS: BP 129/69
--- NOTE | 2020-07-29 11:23 | PDOC1 ---
History and Physical Date of Admission Date of Admission DATE: 07/29/20 TIME: 11:21 Identification/Chief Complaint Chief Complaint DICTATED Past Medical History Past Medical History Past Medical History Past Medical History Past Medical History: Anxiety, Bipolar, Depression, Diabetes-Type I, Schizophrenia, Other Additional Past Medical Histor: panic attacks blood clots in liver ; meth abuse; Past Surgical History: Cholecystectomy, Tonsillectomy Smoking Status: Current Every Day Smoker Alcohol Use: Occasionally Drug Use: Methamphetamine FHX COPD Cardiovascular: HTN Pulmonary: No pertinent hx GI: No pertinent hx Psych: Bipolar, Depression, Other Rheumatologic: No pertinent hx Infectious disease: No pertinent hx Renal/: No pertinent hx Endocrine: Diabetes Past Surgical History Past Surgical History: Cholecystectomy Family History Family History Past Medical/Surgical History: PMH/PSH: Past Medical History: Anxiety, Bipolar, Depression, Diabetes-Type I, Schizophrenia, panic attacks, meth abuse; Past Surgical History: Cholecystectomy, Tonsillectomy Allergies: Allergies: Coded Allergies: Penicillins (Verified Allergy, Intermediate, 09/15/16) Family History: Family History: Reviewed and none reported Social History: Social History: Smoking Status: Current Every Day Smoker Alcohol Use: Occasionally Drug Use: Methamphetamine Family History: Family History Unknown Social History ALCOHOL: none Drugs: Marijuana, Crystal meth Current Problem List Problem List Problems Medical Problems: (1) Non-healing wound Status: Acute (2) Poorly controlled diabetes mellitus Status: Acute Current Medications Current Medications Current Medications Sodium Chloride 500 ml @ 500 mls/hr 1X ONCE IV Last administered on 07/29/20at 04:50; Start 07/29/20 at 04:00; Stop 07/29/20 at 04:59; Status DC Ondansetron HCl (Zofran) 4 mg PRN Q8HRS PRN IV NAUSEA/VOMITING; Start 07/29/20 at 06:00; Stop 07/30/20 at 05:59 Morphine Sulfate (Morphine Sulfate) 4 mg PRN Q2HR PRN IV SEVERE PAIN 7-10 Last administered on 07/29/20at 09:11; Start 07/29/20 at 06:00; Stop 07/30/20 at 05:59 Acetaminophen (Tylenol) 650 mg PRN Q4HRS PRN PO FEVER > 100.3'F; Start 07/29/20 at 06:00; Stop 07/30/20 at 05:59 Active Scripts Active Admelog (Insulin Lispro) 100 Unit/1 Ml Vial 0 Units SQ TIDWMEALS 28 Days Lantus (Insulin Glargine,Hum.rec.anlog) 100 Unit/1 Ml Vial 15 Unit SQ QHS 30 Days Doxycycline Hyclate 100 Mg Tablet 100 Mg PO BID 10 Days Lantus (Insulin Glargine,Hum.rec.anlog) 100 Unit/1 Ml Vial 10 Unit SQ QHS 30 Days [Nicotine 21MG] 1 PATCH Patch 1 Patch TD DAILY 30 Days Reported Valium (Diazepam) 10 Mg Tablet 10 Mg PO TID Seroquel (Quetiapine Fumarate) 100 Mg Tablet 100 Mg PO HS Remeron (Mirtazapine) 30 Mg Tablet 30 Mg PO DAILY Celexa (Citalopram Hydrobromide) 20 Mg Tablet 20 Mg PO DAILY Allergies Allergies: Coded Allergies: Penicillins (Verified Allergy, Intermediate, 09/15/16) Physical Exam Physical Exam Physical Exam GENERAL: Alert and oriented gentleman, not in distress. VITAL SIGNS: Stable. Afebrile. HEENT: NAD. NECK: Supple, no JVP, no lymphadenopathy. LUNGS: Clear. HEART: S1, S2 regular. ABDOMEN: Benign. EXTREMITIES: The patient also has IV drug use, scars in multiple areas in the leg HENT: Normocephalic, atraumatic, bilateral external ears normal, nose normal. [] Eyes: PERRLA, conjunctiva normal, no discharge. [] Neck: No rigidity, supple, no stridor. [] Cardiovascular: Regular rate and rhythm, brisk cap refill [] Lungs & Thorax: Non labored symmetric respirations, no tachypnea or respiratory distress [] Abdomen: Soft, nondistended. Skin: Warm, dry, numerous wounds in various stages of healing to plantar aspect of feet, large 1 to posterior right lower leg, multiple on bilateral knees and hands. Open sacral wound with no drainage] Back: Unremarkable Extremities: No deformities, range of motion grossly intact, bilateral pedal edema [] Neurologic: Alert and oriented X 3, no focal deficits noted. [] NEUROLOGIC: The patient is alert, awake and appropriate. No focal neurologic deficit. General: Alert, Oriented X3, Cooperative, No acute distress Heart: Regular rate, Normal S1 Lungs: Wheezing Abdomen: Normal bowel sounds, Soft, No hepatosplenomegaly Extremities: No clubbing, No cyanosis, No edema Skin: Other (Patient has lesions on B/L LEs at meth injection sites. There is a wound present on right LE) Breasts: Not examined Extremities: No cyanosis Vitals Vitals Vital Signs Date Time Temp Pulse Resp B/P (MAP) Pulse Ox O2 Delivery O2 Flow Rate FiO2 07/29/20 09:11 97 Room Air 07/29/20 06:38 88 111/58 (75) 07/29/20 05:32 97.8 20 97.8 Labs Labs Laboratory Tests Test 07/29/20 04:47 07/29/20 06:20 White Blood Count 7.7 x10^3/uL (4.0-11.0) Red Blood Count 3.31 x10^6/uL (4.30-5.70) Hemoglobin 8.4 g/dL (13.0-17.5) Hematocrit 25.7 % (39.0-53.0) Mean Corpuscular Volume 78 fL (79-100) Mean Corpuscular Hemoglobin 25 pg (25-35) Mean Corpuscular Hemoglobin Concent 33 g/dL (31-37) Red Cell Distribution Width 15.9 % (11.5-14.5) Platelet Count 490 x10^3/uL (140-400) Neutrophils (%) (Auto) 66 % (31-73) Lymphocytes (%) (Auto) 23 % (24-48) Monocytes (%) (Auto) 8 % (0-9) Eosinophils (%) (Auto) 2 % (0-3) Basophils (%) (Auto) 1 % (0-3) Neutrophils # (Auto) 5.1 x10^3/uL (1.8-7.7) Lymphocytes # (Auto) 1.8 x10^3/uL (1.0-4.8) Monocytes # (Auto) 0.6 x10^3/uL (0.0-1.1) Eosinophils # (Auto) 0.2 x10^3/uL (0.0-0.7) Basophils # (Auto) 0.0 x10^3/uL (0.0-0.2) D-Dimer (Rita) 0.44 ug/mlFEU (0.00-0.50) Sodium Level 135 mmol/L (136-145) Potassium Level 3.8 mmol/L (3.5-5.1) Chloride Level 100 mmol/L (98-107) Carbon Dioxide Level 25 mmol/L (21-32) Anion Gap 10 (6-14) Blood Urea Nitrogen 12 mg/dL (8-26) Creatinine 0.6 mg/dL (0.7-1.3) Estimated GFR (Cockcroft-Gault) 142.0 BUN/Creatinine Ratio 20 (6-20) Glucose Level 335 mg/dL (70-99) Lactic Acid Level 1.6 mmol/L (0.4-2.0) Calcium Level 8.2 mg/dL (8.5-10.1) Magnesium Level 1.8 mg/dL (1.8-2.4) Total Bilirubin 0.1 mg/dL (0.2-1.0) Aspartate Amino Transf (AST/SGOT) 20 U/L (15-37) Alanine Aminotransferase (ALT/SGPT) 32 U/L (16-63) Alkaline Phosphatase 148 U/L (46-116) C-Reactive Protein, Quantitative 5.9 mg/L (0-3.3) Total Protein 7.2 g/dL (6.4-8.2) Albumin 2.8 g/dL (3.4-5.0) Albumin/Globulin Ratio 0.6 (1.0-1.7) Ethyl Alcohol Level < 10 mg/dL (0-10) Urine Opiates Screen Neg (NEG) Urine Methadone Screen Neg (NEG) Urine Barbiturates Neg (NEG) Urine Phencyclidine Screen Neg (NEG) Urine Amphetamine/Methamphetamine Pos (NEG) Urine Benzodiazepines Screen Neg (NEG) Urine Cocaine Screen Neg (NEG) Urine Cannabinoids Screen Pos (NEG) Urine Ethyl Alcohol Neg (NEG) Laboratory Tests Test 07/29/20 04:47 07/29/20 06:20 White Blood Count 7.7 x10^3/uL (4.0-11.0) Red Blood Count 3.31 x10^6/uL (4.30-5.70) Hemoglobin 8.4 g/dL (13.0-17.5) Hematocrit 25.7 % (39.0-53.0) Mean Corpuscular Volume 78 fL (79-100) Mean Corpuscular Hemoglobin 25 pg (25-35) Mean Corpuscular Hemoglobin Concent 33 g/dL (31-37) Red Cell Distribution Width 15.9 % (11.5-14.5) Platelet Count 490 x10^3/uL (140-400) Neutrophils (%) (Auto) 66 % (31-73) Lymphocytes (%) (Auto) 23 % (24-48) Monocytes (%) (Auto) 8 % (0-9) Eosinophils (%) (Auto) 2 % (0-3) Basophils (%) (Auto) 1 % (0-3) Neutrophils # (Auto) 5.1 x10^3/uL (1.8-7.7) Lymphocytes # (Auto) 1.8 x10^3/uL (1.0-4.8) Monocytes # (Auto) 0.6 x10^3/uL (0.0-1.1) Eosinophils # (Auto) 0.2 x10^3/uL (0.0-0.7) Basophils # (Auto) 0.0 x10^3/uL (0.0-0.2) D-Dimer (Rita) 0.44 ug/mlFEU (0.00-0.50) Sodium Level 135 mmol/L (136-145) Potassium Level 3.8 mmol/L (3.5-5.1) Chloride Level 100 mmol/L (98-107) Carbon Dioxide Level 25 mmol/L (21-32) Anion Gap 10 (6-14) Blood Urea Nitrogen 12 mg/dL (8-26) Creatinine 0.6 mg/dL (0.7-1.3) Estimated GFR (Cockcroft-Gault) 142.0 BUN/Creatinine Ratio 20 (6-20) Glucose Level 335 mg/dL (70-99) Lactic Acid Level 1.6 mmol/L (0.4-2.0) Calcium Level 8.2 mg/dL (8.5-10.1) Magnesium Level 1.8 mg/dL (1.8-2.4) Total Bilirubin 0.1 mg/dL (0.2-1.0) Aspartate Amino Transf (AST/SGOT) 20 U/L (15-37) Alanine Aminotransferase (ALT/SGPT) 32 U/L (16-63) Alkaline Phosphatase 148 U/L (46-116) C-Reactive Protein, Quantitative 5.9 mg/L (0-3.3) Total Protein 7.2 g/dL (6.4-8.2) Albumin 2.8 g/dL (3.4-5.0) Albumin/Globulin Ratio 0.6 (1.0-1.7) Ethyl Alcohol Level < 10 mg/dL (0-10) Urine Opiates Screen Neg (NEG) Urine Methadone Screen Neg (NEG) Urine Barbiturates Neg (NEG) Urine Phencyclidine Screen Neg (NEG) Urine Amphetamine/Methamphetamine Pos (NEG) Urine Benzodiazepines Screen Neg (NEG) Urine Cocaine Screen Neg (NEG) Urine Cannabinoids Screen Pos (NEG) Urine Ethyl Alcohol Neg (NEG) Images Images XR FEET 3 VIEWS Clinical Indication: Reason: wounds and swelling / : Comparison: None. Findings: Left: There is no obvious bone erosion. Arterial calcification is seen. There is interphalangeal joint space narrowing. No acute fracture is seen. Mild dorsal soft tissue swelling of the foot. The mineralization is normal. Right: Arterial calcification. No obvious bone erosion. No acute fracture. Mild hallux valgus. There are moderate dorsal osteophytes of the midfoot. There is no significant soft tissue swelling. Probable hammertoe deformities of the second through fifth toes. IMPRESSION: No acute fracture. Electronically signed by: Vamshi Bush MD (07/29/2020 4:53 AM) [facility] DICTATED and SIGNED BY: VAMSHI BUSH MD DATE: 07/29/20 [id number] BILATERAL TIBIA FIBULA AP LATERAL Clinical Indication: Reason: wounds and swelling / Comparison: None. Findings: Right: The knee and ankle joints are grossly intact. There is no acute fracture or dislocation. There is soft tissue injury of the medial mid calf. There is soft tissue injury of the posterior and medial distal calf. There is no significant soft tissue swelling. No radiopaque foreign body is identified. Left: Please note the lateral tibia fibula image is under the foot radiographs. The knee and ankle joints are grossly intact. There is patellar enthesophyte. There is no acute fracture or dislocation. There is no bone erosion. There is soft tissue injury of the medial mid calf. There is no significant soft tissue swelling. No radiopaque foreign body is identified. IMPRESSION: No acute fracture. Electronically signed by: Vamshi Bush MD (07/29/2020 4:51 AM) [facility] DICTATED and SIGNED BY: VAMSHI BUSH MD DATE: 07/29/20 [id number] 0 Signed PATIENT: GEOFF COTTON ACCOUNT: [id number] : 1970 LOCATION: ER AGE: 50 SEX: M EXAM STATUS: PRE ER ORD. PHYSICIAN: AMANDA ANTONY MD REASON: cough PROCEDURE: CHEST AP ONLY XR CHEST 1V Clinical Indication: Reason: cough Comparison: Two-view chest, February 21, 2020. Findings: The cardiomediastinal silhouette is normal. Lungs are clear. There is no pneumothorax. No pleural effusion is appreciated. No acute bone abnormality. IMPRESSION: No acute cardiopulmonary process. Electronically signed by: Vamshi Bush MD (07/29/2020 4:58 AM) [facility] DICTATED and SIGNED BY: VAMSHI BUSH MD DATE: 07/29/20 [id number] 0 VTE Prophylaxis Ordered VTE Prophylaxis Devices: No VTE Pharmacological Prophylaxi: Yes Assessment/Plan Assessment/Plan IMPRESSION Cellulitis of the right lower extremity with wound ulcer SACRAL WOUND Diabetes mellitus type 2 Depression/anxiety History of IV drug abuse Patient presents with right leg pain on the anterior portion of tibia. DIABETES , UNCONTROLLED SCHIZOPHRENIA NONCOMPLIANCE PLAN CHECK PROCALCITONIN, A1C Admit to medicine empiric antibiotics IV Infectious disease consult Lovenox for DVT prophylaxis Insulin sliding scale and Accu-Cheks ADA diet Full code Discussed with RN and SW Dispo: Inpatient care POOR PROGNOSIS DUE TO NONCOMPLIANCE Justifications for Admission Other Justification ANTOINETTE THOMPSON MD Jul 29, 2020 11:23
[2020-07-29] MEDS ORDERED: VANCOMYCIN 1.5 GM in IV NORMAL SALINE 500ML BAG 500 ML IV ONE (12:00)
[2020-07-29 15:00] VITALS: BP 136/72
[2020-07-29] MEDS ORDERED: guaiFENesin ORAL 200 MG/10 ML LIQUID. PO PRN (16:00)
[2020-07-29] MEDS ORDERED: 0.9 % SODIUM CHLORIDE 10 ML DISP.SYRIN. IV PRN (16:00)
[2020-07-29] MEDS ORDERED: LORazepam 0.5 MG TABLET PO PRN (16:00)
[2020-07-29] MEDS ORDERED: MAG HYDROX/ALUMINUM HYD/SIMETH 30 ML ORAL.SUSP PO PRN (16:00)
[2020-07-29] MEDS ORDERED: IPRATRPIUM/ALBUTEROL 0.5/2.5MG 3 ML NEBU. NEB SCH (16:00)
[2020-07-29] MEDS ORDERED: ALBUTEROL SULFATE 2.5 MG/3 ML NEBU. NEB PRN (16:00)
[2020-07-29] MEDS ORDERED: cloNIDine HCL 0.1 MG TABLET PO PRN (16:00)
[2020-07-29] MEDS ORDERED: DOCUSATE SODIUM 100 MG CAPSULE. PO PRN (16:00)
[2020-07-29] MEDS: IV NORMAL SALINE 1000ML BAG 1,000 ML IV SCH (16:00)
[2020-07-29] MEDS ORDERED: DEXTROSE 50% 25 GM / 50ML DISP.SYRIN. IV PRN (16:30)
--- NOTE | 2020-07-29 17:24 | HP ---
ADMIT DATE: 07/29/2020 HISTORY OF PRESENT ILLNESS: This is an unfortunate 50-year-old white male with history of depression, schizophrenia and meth abuse, tobacco abuse, and now was seen in the Emergency Room, apparently has been hospital hopping, has been to , diagnosed with cellulitis. He has had problem with chronic wounds for the past 4-5 months. He developed a purulent drainage from the wound on the sacrum. Denies fever, has shortness of breath and cough, loss of smell and taste. He has been an inpatient at the for few times, but has not continued to follow up with his wound care. AMA REVIEW OF SYSTEMS: The patient denies chest pain. Does admit shortness of breath, he has to crave in for breaths. Denies vision loss. He does admit to loss of taste and smell. Denies abdominal pain or vomiting. A 14-point review of systems otherwise negative except for wounds on both knees, his legs, draining wounds on the coccyx. PHYSICAL EXAMINATION: VITAL SIGNS: Very thin, no acute distress, cachectic.POORLY KEPT HEENT: Atraumatic. Throat and pharynx are clear. NECK: Supple. No rigidity or JVD. CARDIOVASCULAR: Regular rate and rhythm without S3, S4. LUNGS: Clear without respiratory distress. ABDOMEN: Soft and nondistended. SKIN: Various stages of healing of the plantar aspect of the feet. One large posterior right leg wound, multiple bilateral wounds on knees and hands. EXTREMITIES: Range of motion is intact. There is trace bilateral pedal edema. NEUROLOGIC: He is alert and oriented. Judgment is poor. Mood is normal. , FLAT Affect is normal. Muscles of mastication are symmetric. There is no facial droop. Cranial nerves 2-12 are grossly intact. IMAGING DATA: Chest x-ray shows no acute process. X-ray of the right knee shows no fracture or dislocation. Soft tissue injury noted on medial mid calf and medial distal calf. X-ray of the left tibia and fibula showed no fracture or bone erosion of the feet. LABORATORY DATA: Show white count of 7.7, hemoglobin of 8.4, MCV 78, platelets 409,000. Sodium 135, potassium 3.8, creatinine of 0.6, BUN 12, glucose is 335, magnesium 1.8, albumin 2.8. Weight 59 kilograms, which is 19.8 BMI. ASSESSMENT: 1. Multiple wounds, which may be related to his injecting meth on both knees and both legs, both extremities. 2. Uncontrolled diabetes. 3. Noncompliance. 4. Polysubstance abuse including meth. 5. Poorly controlled diabetes. 6. Meth and cocaine abuse. 7. Microcytic anemia, suspect iron deficiency. 8. Malnutrition. PLAN: ADMIT IV vancomycin, DVT prophylaxis, sliding scale insulin protocol, wound care nurse, consult Infectious Disease. Total time spent with the patient's exam and chart review was 75 minutes, greater than 50% of time was spent with the chart review, patient's exam, and the patient's care and coordination. Prognosis is quite poor given his history of severe noncompliance. Anticipate length of stay greater than 2 midnights. ANTOINETTE THOMPSON MD DR: MARY ANN/nathanael JOB#: [id number] / [id number] TERESA
--- NOTE | 2020-07-29 17:26 | NUR ---
pt is allergic to penicillins with a reaction of hives and fever, recently given Amoxicillin at [facility] and did not have a reaction. Dr Tesfaye is aware of this situation. Cristian Kramer RN
[2020-07-29] MEDS ORDERED: PIP/TAZO PER PHARMACY MC PRN (17:30)
[2020-07-29] MEDS: ENOXAPARIN 40 MG/0.4 ML SYRINGE. SQ SCH (17:36)
[2020-07-29] MEDS: INSULIN LISPRO 300 UNITS/3 ML VIAL. SQ SCH (17:42)
[2020-07-29] MEDS: PIPERACILLIN/TAZOBACTAM 3.375 GM in IV NORMAL SALINE 50ML 50 ML IV SCH (18:00)
[2020-07-29 19:55] VITALS: BP 130/72
[2020-07-29] MEDS: IPRATROPIUM/ALBUTEROL 20/100mcg/INH INHALER. INH SCH (20:00)
[2020-07-29] MEDS: VANCOMYCIN PER PHARMACY MC PRN (20:30)
--- NOTE | 2020-07-29 20:31 | NUR ---
Pharmacy Vancomycin Dosing Note S:Consulted to monitor and dose vancomycin started 07/29/20. O:GEOFF COTTON is a 50 year old M with Multiple wounds . Height: 5 feet, 8 inches Weight: 59.0 kg [place] Body Weight: 68.40 Adjusted Body Weight: 64.64 Dosing Weight: Actual Other Antibiotics: zosyn per pharmacy LABS: Last BUN: 12 Last Creatinine: 0.6 Creatinine Clearance: >100 mL/min Last WBC: 7.7 Last Procalcitonin: Tmax (past 24 hours): 98.9 Vancomycin Dosing: Loading Dose: 1500 mg x1 Dosing Weight: Actual Target Trough: 15-20 A: Based on: weight and renal function P: 1. Dose vancomycin 1.5g 1x (loading dose) then begin 1000 mg IV q8h 2. Follow up trough level to be ordered by pharmacy 3. Pharmacy will continue to monitor, follow and adjust therapy as needed. Marquita Lucero RPH, 07/29/202030
[2020-07-29 23:40] VITALS: BP 131/65
--- NOTE | 2020-07-30 00:12 | NUR ---
Patient refused IV stick, three nurses tried with unsuccessful attempts. Nurse maternity floor supervisor called, came to bedside to attempt and patient refused. Refused to leave telemetry leads on. Will notify MD store operations specialist. Will continue to monitor.
--- NOTE | 2020-07-30 00:47 | NUR ---
MD Ca station mechanic notified patient refused IV stick and telemetry leads. MD Ca informed Ok to leave out and off.
[2020-07-30] MEDS: IV NORMAL SALINE 1000ML BAG 1,000 ML IV SCH ×2 (02:00→12:11)
[2020-07-30 03:31] VITALS: BP 144/83
[2020-07-30] MEDS: PIPERACILLIN/TAZOBACTAM 3.375 GM in IV NORMAL SALINE 50ML 50 ML IV SCH ×4 (06:00→17:34)
[2020-07-30] MEDS ORDERED: VANCOMYCIN 1 GM in IV NORMAL SALINE 250ML 250 ML IV SCH (06:00)
[2020-07-30 07:00] VITALS: BP 126/68
--- NOTE | 2020-07-30 07:54 | PDOC ---
Infectious Disease Note Vital Sign Vital Signs Vital Signs Date Time Temp Pulse Resp B/P (MAP) Pulse Ox O2 Delivery O2 Flow Rate FiO2 07/30/20 03:31 98.8 72 20 144/83 (103) 98 Room Air 98.8 Labs Lab Laboratory Tests Test 07/29/20 11:31 07/29/20 16:31 07/29/20 21:34 07/30/20 07:41 Glucose (Fingerstick) 309 mg/dL (70-99) 259 mg/dL (70-99) 151 mg/dL (70-99) 306 mg/dL (70-99) Objective Assessment Multiple wounds - legs/hands no gross cellulitis PCN allergy - takes Amox Cachexia Meth use Neuropathy DM Stool incontinence and Erectile dysfunction Plan Plan of Care Cont Vanc and zosyn F/u labs and cults Local wound care per primary ? Stool incontinence per primary Thank you # [phone] CRYS HENRIQUEZ MD Jul 30, 2020 07:54
[2020-07-30] MEDS: IPRATROPIUM/ALBUTEROL 20/100mcg/INH INHALER. INH SCH ×4 (08:00→20:00)
[2020-07-30] MEDS: INSULIN LISPRO 300 UNITS/3 ML VIAL. SQ SCH ×3 (08:06→16:18)
[2020-07-30 11:00] VITALS: BP 139/79
--- NOTE | 2020-07-30 11:17 | PDOC ---
PROGRESS NOTES Date of Service: DATE: 07/30/20 TIME: 11:16 Chief Complaint Chief Complaint ASSESSMENT: 1. Multiple wounds, which may be related to his injecting meth on both knees and both legs, both extremities. 2. Uncontrolled diabetes. 3. Noncompliance. 4. Polysubstance abuse including meth. 5. Poorly controlled diabetes. 6. Meth and cocaine abuse. 7. Microcytic anemia, suspect iron deficiency. 8. Malnutrition., SEVERE PROTEIN-CALORIC MALNUTRITION 9. Stool incontinence and Erectile dysfunction PLAN: ADMIT IV vancomycin, DVT prophylaxis, sliding scale insulin protocol, wound care nurse, consult Infectious Disease. ADD LANTUS 10 UNITS SQ HS GI CONSULT Total time spent with the patient's exam and chart review was 37 minutes, greater than 50% of time was spent with the chart review, patient's exam, and the patient's care and coordination. Prognosis is quite poor given his history of severe noncompliance. Anticipate length of stay greater than 2 midnights.[employer] NEED[employer] 07-30 states he is homelss, living [place] bridge near [address] [place] [address] History of Present Illness History of Present Illness HISTORY OF PRESENT ILLNESS: unfortunate 50-year-old white male with history of depression, schizophrenia and meth abuse, tobacco abuse, and now was seen in the Emergency Room, apparently has been hospital hopping, has been to , diagnosed with cellulitis. He has had problem with chronic wounds for the past 4-5 months. He developed a purulent drainage from the wound on the sacrum. Denies fever, has shortness of breath and cough, loss of smell and taste. He has been an inpatient at the for few times, but has not continued to follow up with his wound care.[facility] SUBSTANCE ABUSE, METH ABUSE, DIABETES, NONCOMPLIANCE REVIEW OF SYSTEMS: The patient denies chest pain. Does admit shortness of breath, he has to crave in for breaths. Denies vision loss. He does admit to loss of taste and smell. Denies abdominal pain or vomiting. A 14-point review of systems otherwise negative except for wounds on both knees, his legs, draining wounds on the coccyx. Vitals Vitals Vital Signs Date Time Temp Pulse Resp B/P (MAP) Pulse Ox O2 Delivery O2 Flow Rate FiO2 07/30/20 08:00 Room Air 07/30/20 07:00 98.1 71 14 126/68 (87) 98 98.1 Physical Exam Physical Exam VITAL SIGNS: Very thin, no acute distress, cachectic.POORLY KEPT HEENT: Atraumatic. Throat and pharynx are clear. NECK: Supple. No rigidity or JVD. CARDIOVASCULAR: Regular rate and rhythm without S3, S4. LUNGS: Clear without respiratory distress. ABDOMEN: Soft and nondistended. SKIN: Various stages of healing of the plantar aspect of the feet. One large posterior right leg wound, multiple bilateral wounds on knees and hands. EXTREMITIES: Range of motion is intact. There is trace bilateral pedal edema. NEUROLOGIC: He is alert and oriented. Judgment is poor. Mood is normal. , FLAT Affect is normal. Muscles of mastication are symmetric. There is no facial droop. Cranial nerves 2-12 are grossly intact. IMAGING DATA: Chest x-ray shows no acute process. X-ray of the right knee shows no fracture or dislocation. Soft tissue injury noted on medial mid calf and medial distal calf. X-ray of the left tibia and fibula showed no fracture or bone erosion of the feet. General: Alert, Oriented X3, Cooperative, No acute distress Heart: Regular rate Lungs: Wheezing Extremities: No clubbing, No cyanosis Labs LABS Laboratory Tests Test 07/29/20 11:31 07/29/20 16:31 07/29/20 21:34 07/30/20 07:41 Glucose (Fingerstick) 309 mg/dL (70-99) 259 mg/dL (70-99) 151 mg/dL (70-99) 306 mg/dL (70-99) Test 07/30/20 11:05 Glucose (Fingerstick) 197 mg/dL (70-99) Assessment and Plan Assessmemt and Plan Problems Medical Problems: (1) Non-healing wound Status: Acute (2) Poorly controlled diabetes mellitus Status: Acute Comment Review of Relevant I have reviewed the following items oli (where applicable) has been applied. Labs Laboratory Tests Test 07/29/20 04:47 07/29/20 06:20 07/29/20 07:05 07/29/20 11:31 White Blood Count 7.7 x10^3/uL (4.0-11.0) Red Blood Count 3.31 x10^6/uL (4.30-5.70) Hemoglobin 8.4 g/dL (13.0-17.5) Hematocrit 25.7 % (39.0-53.0) Mean Corpuscular Volume 78 fL (79-100) Mean Corpuscular Hemoglobin 25 pg (25-35) Mean Corpuscular Hemoglobin Concent 33 g/dL (31-37) Red Cell Distribution Width 15.9 % (11.5-14.5) Platelet Count 490 x10^3/uL (140-400) Neutrophils (%) (Auto) 66 % (31-73) Lymphocytes (%) (Auto) 23 % (24-48) Monocytes (%) (Auto) 8 % (0-9) Eosinophils (%) (Auto) 2 % (0-3) Basophils (%) (Auto) 1 % (0-3) Neutrophils # (Auto) 5.1 x10^3/uL (1.8-7.7) Lymphocytes # (Auto) 1.8 x10^3/uL (1.0-4.8) Monocytes # (Auto) 0.6 x10^3/uL (0.0-1.1) Eosinophils # (Auto) 0.2 x10^3/uL (0.0-0.7) Basophils # (Auto) 0.0 x10^3/uL (0.0-0.2) D-Dimer (Rita) 0.44 ug/mlFEU (0.00-0.50) Sodium Level 135 mmol/L (136-145) Potassium Level 3.8 mmol/L (3.5-5.1) Chloride Level 100 mmol/L (98-107) Carbon Dioxide Level 25 mmol/L (21-32) Anion Gap 10 (6-14) Blood Urea Nitrogen 12 mg/dL (8-26) Creatinine 0.6 mg/dL (0.7-1.3) Estimated GFR (Cockcroft-Gault) 142.0 BUN/Creatinine Ratio 20 (6-20) Glucose Level 335 mg/dL (70-99) Lactic Acid Level 1.6 mmol/L (0.4-2.0) Calcium Level 8.2 mg/dL (8.5-10.1) Magnesium Level 1.8 mg/dL (1.8-2.4) Iron Level 18 ug/dL (65-175) Total Iron Binding Capacity 276 ug/dL (250-450) Iron Saturation 7 % (15-34) Total Bilirubin 0.1 mg/dL (0.2-1.0) Aspartate Amino Transf (AST/SGOT) 20 U/L (15-37) Alanine Aminotransferase (ALT/SGPT) 32 U/L (16-63) Alkaline Phosphatase 148 U/L (46-116) C-Reactive Protein, Quantitative 5.9 mg/L (0-3.3) Total Protein 7.2 g/dL (6.4-8.2) Albumin 2.8 g/dL (3.4-5.0) Albumin/Globulin Ratio 0.6 (1.0-1.7) Ethyl Alcohol Level < 10 mg/dL (0-10) Urine Opiates Screen Neg (NEG) Urine Methadone Screen Neg (NEG) Urine Barbiturates Neg (NEG) Urine Phencyclidine Screen Neg (NEG) Urine Amphetamine/Methamphetamine Pos (NEG) Urine Benzodiazepines Screen Neg (NEG) Urine Cocaine Screen Neg (NEG) Urine Cannabinoids Screen Pos (NEG) Urine Ethyl Alcohol Neg (NEG) Coronavirus (PCR) Not detected (Not Detected) Glucose (Fingerstick) 309 mg/dL (70-99) Test 07/29/20 16:31 07/29/20 21:34 07/30/20 07:41 07/30/20 11:05 Glucose (Fingerstick) 259 mg/dL (70-99) 151 mg/dL (70-99) 306 mg/dL (70-99) 197 mg/dL (70-99) Laboratory Tests Test 07/29/20 11:31 07/29/20 16:31 07/29/20 21:34 07/30/20 07:41 Glucose (Fingerstick) 309 mg/dL (70-99) 259 mg/dL (70-99) 151 mg/dL (70-99) 306 mg/dL (70-99) Test 07/30/20 11:05 Glucose (Fingerstick) 197 mg/dL (70-99) Medications Current Medications Sodium Chloride 500 ml @ 500 mls/hr 1X ONCE IV Last administered on 07/29/20at 04:50; Start 07/29/20 at 04:00; Stop 07/29/20 at 04:59; Status DC Ondansetron HCl (Zofran) 4 mg PRN Q8HRS PRN IV NAUSEA/VOMITING; Start 07/29/20 at 06:00; Stop 07/30/20 at 05:59; Status DC Morphine Sulfate (Morphine Sulfate) 4 mg PRN Q2HR PRN IV SEVERE PAIN 7-10 Last administered on 07/29/20at 09:11; Start 07/29/20 at 06:00; Stop 07/30/20 at 05:59; Status DC Acetaminophen (Tylenol) 650 mg PRN Q4HRS PRN PO FEVER > 100.3'F; Start 07/29/20 at 06:00; Stop 07/30/20 at 05:59; Status DC Vancomycin HCl (Vanco Per Pharmacy) 1 each PRN DAILY PRN MC SEE COMMENTS Last administered on 07/29/20at 20:30; Start 07/29/20 at 11:45 Vancomycin HCl 1.5 gm/Sodium Chloride 500 ml @ 250 mls/hr 1X ONCE IV ; Start 07/29/20 at 12:00; Stop 07/29/20 at 13:59; Status DC Sodium Chloride (Normal Saline Flush) 3 ml QSHIFT PRN IV AFTER MEDS AND BLOOD DRAWS; Start 07/29/20 at 16:00 Sodium Chloride 1,000 ml @ 100 mls/hr Q10H IV ; Start 07/29/20 at 16:00 Ondansetron HCl (Zofran) 4 mg PRN Q4HRS PRN IV NAUSEA/VOMITING; Start 07/29/20 at 16:00 Acetaminophen (Tylenol) 650 mg PRN Q4HRS PRN PO TEMP OVER 100.4F OR MILD PAIN; Start 07/29/20 at 16:00 Al Hydroxide/Mg Hydroxide (Mylanta Plus Xs) 30 ml PRN DAILY PRN PO HEARTBURN / GAS; Start 07/29/20 at 16:00 Clonidine HCl (Catapres) 0.1 mg PRN Q6HRS PRN PO SBP>160 OR DBP>90; Start at 16:00 Docusate Sodium (Colace) 100 mg PRN BID PRN PO HARD STOOLS; Start 07/29/20 at 16:00 Albuterol Sulfate (Ventolin Neb Soln) 2.5 mg PRN Q4HRS PRN NEB SHORTNESS OF BREATH; Start 07/29/20 at 16:00 Albuterol/ Ipratropium (Duoneb) 3 ml Q4H NEB ; Start 07/29/20 at 16:00; Stop 07/29/20 at 16:06; Status DC Guaifenesin (Robitussin) 200 mg PRN Q4HRS PRN PO COUGH; Start 07/29/20 at 16:00 Lorazepam (Ativan) 0.5 mg PRN Q4HRS PRN PO ANXIETY / AGITATION; Start 07/29/20 at 16:00 Enoxaparin Sodium (Lovenox 40mg Syringe) 40 mg Q24H SQ Last administered on 07/29/20at 17:36; Start 07/29/20 at 17:00 Albuterol/ Ipratropium (Combivent Respimat 20-100 Mcg) 1 puff RTQID INH ; Start 07/29/20 at 20:00 Insulin Human Lispro (HumaLOG) 0-5 UNITS TIDWMEALS SQ Last administered on 07/30/20at 08:06; Start 07/29/20 at 17:00 Dextrose (Dextrose 50%-Water Syringe) 12.5 gm PRN Q15MIN PRN IV SEE COMMENTS; Start 07/29/20 at 16:30 Piperacillin Sod/ Tazobactam Sod (Zosyn Per Pharmacy) 1 each PRN DAILY PRN MC SEE COMMENTS; Start 07/29/20 at 17:30 Piperacillin Sod/ Tazobactam Sod 3.375 gm/Sodium Chloride 50 ml @ 100 mls/hr Q6HRS IV ; Start 07/29/20 at 18:00 Vancomycin HCl 1 gm/Sodium Chloride 250 ml @ 250 mls/hr Q8HRS IV ; Start 07/30/20 at 06:00; Stop 07/30/20 at 10:34; Status DC Active Scripts Active Admelog (Insulin Lispro) 100 Unit/1 Ml Vial 0 Units SQ TIDWMEALS 28 Days Lantus (Insulin Glargine,Hum.rec.anlog) 100 Unit/1 Ml Vial 15 Unit SQ QHS 30 Days Doxycycline Hyclate 100 Mg Tablet 100 Mg PO BID 10 Days Lantus (Insulin Glargine,Hum.rec.anlog) 100 Unit/1 Ml Vial 10 Unit SQ QHS 30 Days [Nicotine 21MG] 1 PATCH Patch 1 Patch TD DAILY 30 Days Reported Valium (Diazepam) 10 Mg Tablet 10 Mg PO TID Seroquel (Quetiapine Fumarate) 100 Mg Tablet 100 Mg PO HS Remeron (Mirtazapine) 30 Mg Tablet 30 Mg PO DAILY Celexa (Citalopram Hydrobromide) 20 Mg Tablet 20 Mg PO DAILY Vitals/I & O Vital Sign - Last 24 Hours 07/29/20 07/29/20 07/29/20 07/29/20 13:26 15:00 19:55 20:00 Temp 98.6 98.6 98.6 98.6 Pulse 90 80 Resp 20 B/P (MAP) 136/72 (93) 130/72 (91) Pulse Ox 99 98 O2 Delivery Room Air Room Air Room Air Room Air 07/29/20 07/30/20 07/30/20 07/30/20 23:40 03:31 07:00 08:00 Temp 99.2 98.8 98.1 99.2 98.8 98.1 Pulse 77 72 71 Resp 20 20 14 B/P (MAP) 131/65 (87) 144/83 (103) 126/68 (87) Pulse Ox 98 98 98 O2 Delivery Room Air Room Air Room Air Room Air Intake and Output 07/29/20 07/29/20 07/30/20 15:00 23:00 07:00 Intake Total 240 ml 240 ml 340 ml Balance 240 ml 240 ml 340 ml Justicifation of Admission Dx: Justifications for Admission: Justification of Admission Dx: Yes Cellulitis: Cellulitis ANTOINETTE THOMPSON MD Jul 30, 2020 11:17
--- NOTE | 2020-07-30 11:22 | CONS ---
DATE OF CONSULTATION: 07/30/2020 LOCATION: The patient is in room 673. REQUESTING PHYSICIAN: Dr. Naik. REASON FOR CONSULTATION: Multiple wounds. HISTORY OF PRESENT ILLNESS: The patient is a 50-year-old gentleman with history of bipolar disorder, schizophrenia, diabetes and a polysubstance abuse with smoking of meth and tobacco. He presented to [facility] with complaints of foot pain and swelling. States that last week he has teeth removed also at and prescribed medications for cellulitis, but was unable to take them. He has had problem with chronic wounds, but has been noncompliant with followup. On arrival, he had a white count of 7.7 with normal differential. Glucose was 335. Underwent x-rays of his feet which showed no acute fracture. Tib-fib x-ray showed no acute fracture. Chest x-ray showed no acute pulmonary process. He was instituted on vancomycin and Zosyn. Currently, he is lying comfortable. He is hungry. He is uncertain if he had fevers or chills. He has had occasional stool incontinence for several months, but no bladder incontinence. PAST MEDICAL HISTORY: Positive for anxiety, bipolar, depression, diabetes, schizophrenia, panic attacks, multiple wounds, substance abuse. PAST SURGICAL HISTORY: Positive for cholecystectomy, tonsillectomy and tooth extractions. REVIEW OF SYSTEMS: Otherwise negative. SOCIAL HISTORY: Positive for smoking of methamphetamine, marijuana use, tobacco, but no alcohol. ALLERGIES: PENICILLIN, but he has taken amoxicillin. FAMILY HISTORY: Noncontributory. CURRENT MEDICATIONS: Include vancomycin, Zosyn, albuterol, Catapres, Lovenox, insulin. PHYSICAL EXAMINATION: VITAL SIGNS: Afebrile. Temperature 98.8, pulse 72, respirations 20, blood pressure 144/83, satting 98% on room air. CONSTITUTIONAL: He is lying in bed. He is cachectic in appearance. He is in no acute distress. HEENT: Pupils are equal and reactive. Oral cavity, pharynx is clear, edentulous. NECK: Supple. No JVD. LUNGS: Clear to auscultation bilaterally. HEART: S1, S2. ABDOMEN: Soft, scaphoid like. GENITOURINARY: without signs of any complications. SKIN: Warm to touch. He has some mild swelling of his lower extremities. He has multiple lesions on his lower extremities and his feet that all appear to be scabbed over. There is no gross drainage. There is minimal erythema. He also has a wound on his left hand of various sizes, sacral wound is clear without any drainage, stage 2. NEUROLOGIC: Moves all extremities. ____ his lower extremities. LABORATORY VALUES: White count 7.7, hemoglobin 8.4, platelets of 490, neutrophils 66%, lymphs are 23, creatinine 0.6. Recent fingerstick 151, alkaline phosphatase 148, AST 20, ALT 32. Drug screen positive for methamphetamines and cannabinoids. Coronavirus was negative. RADIOLOGY: Reviewed in history of present illness. IMPRESSION: 1. Multiple wounds in legs and hands. No gross cellulitis. 2. PENICILLIN ALLERGY, takes amoxicillin. 3. Cachexia. 4. Meth use. 5. Neuropathy. 6. Diabetes. 7. Complaints of stool incontinence and erectile dysfunction. RECOMMENDATIONS: Continue vancomycin and Zosyn. We will follow up labs and cultures. Local wound care per primary, possible stool incontinence per primary. Thank you for allowing me to participate in the patient's care. If you have any questions, please do not hesitate to contact me. CRYS HENRIQUEZ MD DR: WALKER/nathanael JOB#: [id number] / [id number] TERESA
[2020-07-30] MEDS ORDERED: VANCOMYCIN 1.25 GM in IV NORMAL SALINE 250ML 250 ML IV ONE (14:00)
[2020-07-30] MEDS: VANCOMYCIN PER PHARMACY MC PRN (14:19)
--- NOTE | 2020-07-30 14:21 | NUR ---
Pharmacy Vancomycin Dosing Note S:Consulted to monitor and dose vancomycin started 07/29/20. O:GEOFF COTTON is a 50 year old M with Multiple wounds. Height: 5 feet, 8 inches Weight: 51.1 kg [place] Body Weight: 68.40 Adjusted Body Weight: 61.48 Dosing Weight: Actual Other Antibiotics: zosyn per pharmacy LABS: Last BUN: 12 Last Creatinine: 0.6 Creatinine Clearance: >100 mL/min Last WBC: 7.7 Last Procalcitonin: Tmax (past 24 hours): 99.2 Microbiology: I/O: 1320/- Last dose given 07/30/20 at 1405 Vancomycin Dosing: Loading Dose: 1500 mg x1 Dosing Weight: Actual Target Trough: 15-20 A: Based on: weight and renal function P: 1. Begin Vancomycin 750 mg IV q8h 2. Follow up Trough level on 07/31/20 at 1330 3. Pharmacy will continue to monitor, follow and adjust therapy as needed. Marquita Lucero Kimberly, 07/30/20 [id number]
[2020-07-30] MEDS: ACETAMINOPHEN 325 MG TABLET. PO PRN ×2 (14:27→20:53)
--- NOTE | 2020-07-30 14:27 | PDOC2 ---
CONSULT Date of Consult Date of Consult DATE: 07/30/20 TIME: 14:25 Reason for Consult Reason for Consult: Fecal incontinence/diarrhea Past Medical History Cardiovascular: HTN Pulmonary: No pertinent hx GI: No pertinent hx Psych: Bipolar, Depression, Other Rheumatologic: No pertinent hx Infectious disease: No pertinent hx Renal/: No pertinent hx Endocrine: Diabetes Past Surgical History Past Surgical History: Cholecystectomy Family History Family History: Family History Unknown Social History ALCOHOL: none Drugs: Marijuana, Crystal meth Current Problem List Problem List Problems Medical Problems: (1) Non-healing wound Status: Acute (2) Poorly controlled diabetes mellitus Status: Acute Current Medications Current Medications Current Medications Sodium Chloride 500 ml @ 500 mls/hr 1X ONCE IV Last administered on 07/29/20at 04:50; Start 07/29/20 at 04:00; Stop 07/29/20 at 04:59; Status DC Ondansetron HCl (Zofran) 4 mg PRN Q8HRS PRN IV NAUSEA/VOMITING; Start 07/29/20 at 06:00; Stop 07/30/20 at 05:59; Status DC Morphine Sulfate (Morphine Sulfate) 4 mg PRN Q2HR PRN IV SEVERE PAIN 7-10 Last administered on 07/29/20at 09:11; Start 07/29/20 at 06:00; Stop 07/30/20 at 05:59; Status DC Acetaminophen (Tylenol) 650 mg PRN Q4HRS PRN PO FEVER > 100.3'F; Start 07/29/20 at 06:00; Stop 07/30/20 at 05:59; Status DC Vancomycin HCl (Vanco Per Pharmacy) 1 each PRN DAILY PRN MC SEE COMMENTS Last administered on 07/30/20at 14:19; Start 07/29/20 at 11:45 Vancomycin HCl 1.5 gm/Sodium Chloride 500 ml @ 250 mls/hr 1X ONCE IV ; Start 07/29/20 at 12:00; Stop 07/29/20 at 13:59; Status Cancel Sodium Chloride (Normal Saline Flush) 3 ml QSHIFT PRN IV AFTER MEDS AND BLOOD DRAWS; Start 07/29/20 at 16:00 Sodium Chloride 1,000 ml @ 100 mls/hr Q10H IV Last administered on 07/30/20at 12:11; Start 07/29/20 at 16:00 Ondansetron HCl (Zofran) 4 mg PRN Q4HRS PRN IV NAUSEA/VOMITING; Start 07/29/20 at 16:00 Acetaminophen (Tylenol) 650 mg PRN Q4HRS PRN PO TEMP OVER 100.4F OR MILD PAIN; Start 07/29/20 at 16:00 Al Hydroxide/Mg Hydroxide (Mylanta Plus Xs) 30 ml PRN DAILY PRN PO HEARTBURN / GAS; Start 07/29/20 at 16:00 Clonidine HCl (Catapres) 0.1 mg PRN Q6HRS PRN PO SBP>160 OR DBP>90; Start 07/29/20 at 16:00 Docusate Sodium (Colace) 100 mg PRN BID PRN PO HARD STOOLS; Start 07/29/20 at 16:00 Albuterol Sulfate (Ventolin Neb Soln) 2.5 mg PRN Q4HRS PRN NEB SHORTNESS OF BREATH; Start 07/29/20 at 16:00 Albuterol/ Ipratropium (Duoneb) 3 ml Q4H NEB ; Start 07/29/20 at 16:00; Stop 07/29/20 at 16:06; Status DC Guaifenesin (Robitussin) 200 mg PRN Q4HRS PRN PO COUGH; Start 07/29/20 at 16:00 Lorazepam (Ativan) 0.5 mg PRN Q4HRS PRN PO ANXIETY / AGITATION; Start 07/29/20 at 16:00 Enoxaparin Sodium (Lovenox 40mg Syringe) 40 mg Q24H SQ Last administered on 07/29/20at 17:36; Start 07/29/20 at 17:00 Albuterol/ Ipratropium (Combivent Respimat 20-100 Mcg) 1 puff RTQID INH Last administered on 07/30/20at 14:04; Start 07/29/20 at 20:00 Insulin Human Lispro (HumaLOG) 0-5 UNITS TIDWMEALS SQ Last administered on 07/30/20at 12:09; Start 07/29/20 at 17:00 Dextrose (Dextrose 50%-Water Syringe) 12.5 gm PRN Q15MIN PRN IV SEE COMMENTS; Start 07/29/20 at 16:30 Piperacillin Sod/ Tazobactam Sod (Zosyn Per Pharmacy) 1 each PRN DAILY PRN MC SEE COMMENTS; Start 07/29/20 at 17:30 Piperacillin Sod/ Tazobactam Sod 3.375 gm/Sodium Chloride 50 ml @ 100 mls/hr Q6HRS IV Last administered on 07/30/20at 12:00; Start 07/29/20 at 18:00 Vancomycin HCl 1 gm/Sodium Chloride 250 ml @ 250 mls/hr Q8HRS IV ; Start at 06:00; Stop 07/30/20 at 10:34; Status DC Insulin Glargine (Lantus Syringe) 10 unit QHS SQ ; Start 07/30/20 at 21:00 Vancomycin HCl 1.25 gm/Sodium Chloride 250 ml @ 166.667 mls/hr 1X ONCE IV Last administered on 07/30/20at 14:05; Start 07/30/20 at 14:00; Stop 07/30/20 at 15:29 Vancomycin HCl 750 mg/Sodium Chloride 250 ml @ 250 mls/hr Q8HRS IV ; Start 07/30/20 at 22:00 Vancomycin HCl (Vancomycin Trough Level) 1 each 1X ONCE MC ; Start 07/31/20 at 13:30; Stop 07/31/20 at 13:31 Active Scripts Active Admelog (Insulin Lispro) 100 Unit/1 Ml Vial 0 Units SQ TIDWMEALS 28 Days Lantus (Insulin Glargine,Hum.rec.anlog) 100 Unit/1 Ml Vial 15 Unit SQ QHS 30 Days Doxycycline Hyclate 100 Mg Tablet 100 Mg PO BID 10 Days Lantus (Insulin Glargine,Hum.rec.anlog) 100 Unit/1 Ml Vial 10 Unit SQ QHS 30 Days [Nicotine 21MG] 1 PATCH Patch 1 Patch TD DAILY 30 Days Reported Valium (Diazepam) 10 Mg Tablet 10 Mg PO TID Seroquel (Quetiapine Fumarate) 100 Mg Tablet 100 Mg PO HS Remeron (Mirtazapine) 30 Mg Tablet 30 Mg PO DAILY Celexa (Citalopram Hydrobromide) 20 Mg Tablet 20 Mg PO DAILY Allergies Allergies: Coded Allergies: Penicillins (Verified Allergy, Intermediate, hives, 07/29/20) Has tolerated amoxicillin Vitals VITALS Vital Signs Date Time Temp Pulse Resp B/P (MAP) Pulse Ox O2 Delivery O2 Flow Rate FiO2 07/30/20 11:00 97.9 85 18 139/79 (99) 97 Room Air 97.9 Labs Labs Laboratory Tests Test 07/29/20 04:47 07/29/20 06:20 07/29/20 07:05 07/29/20 11:31 White Blood Count 7.7 x10^3/uL (4.0-11.0) Red Blood Count 3.31 x10^6/uL (4.30-5.70) Hemoglobin 8.4 g/dL (13.0-17.5) Hematocrit 25.7 % (39.0-53.0) Mean Corpuscular Volume 78 fL (79-100) Mean Corpuscular Hemoglobin 25 pg (25-35) Mean Corpuscular Hemoglobin Concent 33 g/dL (31-37) Red Cell Distribution Width 15.9 % (11.5-14.5) Platelet Count 490 x10^3/uL (140-400) Neutrophils (%) (Auto) 66 % (31-73) Lymphocytes (%) (Auto) 23 % (24-48) Monocytes (%) (Auto) 8 % (0-9) Eosinophils (%) (Auto) 2 % (0-3) Basophils (%) (Auto) 1 % (0-3) Neutrophils # (Auto) 5.1 x10^3/uL (1.8-7.7) Lymphocytes # (Auto) 1.8 x10^3/uL (1.0-4.8) Monocytes # (Auto) 0.6 x10^3/uL (0.0-1.1) Eosinophils # (Auto) 0.2 x10^3/uL (0.0-0.7) Basophils # (Auto) 0.0 x10^3/uL (0.0-0.2) D-Dimer (Rita) 0.44 ug/mlFEU (0.00-0.50) Sodium Level 135 mmol/L (136-145) Potassium Level 3.8 mmol/L (3.5-5.1) Chloride Level 100 mmol/L (98-107) Carbon Dioxide Level 25 mmol/L (21-32) Anion Gap 10 (6-14) Blood Urea Nitrogen 12 mg/dL (8-26) Creatinine 0.6 mg/dL (0.7-1.3) Estimated GFR (Cockcroft-Gault) 142.0 BUN/Creatinine Ratio 20 (6-20) Glucose Level 335 mg/dL (70-99) Lactic Acid Level 1.6 mmol/L (0.4-2.0) Calcium Level 8.2 mg/dL (8.5-10.1) Magnesium Level 1.8 mg/dL (1.8-2.4) Iron Level 18 ug/dL (65-175) Total Iron Binding Capacity 276 ug/dL (250-450) Iron Saturation 7 % (15-34) Total Bilirubin 0.1 mg/dL (0.2-1.0) Aspartate Amino Transf (AST/SGOT) 20 U/L (15-37) Alanine Aminotransferase (ALT/SGPT) 32 U/L (16-63) Alkaline Phosphatase 148 U/L (46-116) C-Reactive Protein, Quantitative 5.9 mg/L (0-3.3) Total Protein 7.2 g/dL (6.4-8.2) Albumin 2.8 g/dL (3.4-5.0) Albumin/Globulin Ratio 0.6 (1.0-1.7) Ethyl Alcohol Level < 10 mg/dL (0-10) Urine Opiates Screen Neg (NEG) Urine Methadone Screen Neg (NEG) Urine Barbiturates Neg (NEG) Urine Phencyclidine Screen Neg (NEG) Urine Amphetamine/Methamphetamine Pos (NEG) Urine Benzodiazepines Screen Neg (NEG) Urine Cocaine Screen Neg (NEG) Urine Cannabinoids Screen Pos (NEG) Urine Ethyl Alcohol Neg (NEG) Coronavirus (PCR) Not detected (Not Detected) Glucose (Fingerstick) 309 mg/dL (70-99) Test 07/29/20 16:31 07/29/20 21:34 07/30/20 07:41 07/30/20 11:05 Glucose (Fingerstick) 259 mg/dL (70-99) 151 mg/dL (70-99) 306 mg/dL (70-99) 197 mg/dL (70-99) Laboratory Tests Test 07/29/20 16:31 07/29/20 21:34 07/30/20 07:41 07/30/20 11:05 Glucose (Fingerstick) 259 mg/dL (70-99) 151 mg/dL (70-99) 306 mg/dL (70-99) 197 mg/dL (70-99) Assessment/Plan Assessment/Plan Fecal incontinence- with DM, most likely multifactoriali netiology with DM contributing. Malignancy, IBD, and/or IBS possible as well Plan stool studies consider colonoscopy if no improvement with above as infections are controlled Full note dictated ISAAC PRETTY MD Jul 30, 2020 14:27
[2020-07-30] MEDS ORDERED: KETOROLAC 15 MG/ML VIAL. IVP PRN (15:00)
[2020-07-30 15:13] VITALS: BP 131/76
[2020-07-30] MEDS: ENOXAPARIN 40 MG/0.4 ML SYRINGE. SQ SCH (16:16)
[2020-07-30 19:00] VITALS: BP 128/62
--- NOTE | 2020-07-30 20:09 | CONS ---
DATE OF CONSULTATION: 07/30/2020 REASON FOR CONSULTATION: Fecal incontinence. HISTORY OF PRESENT ILLNESS: A 50-year-old male with past medical history significant for methamphetamine abuse, cellulitis, intravenous drug use, hyperglycemia and diabetes, who was admitted with incontinence. The patient has had difficulties controlling bowels for the past 3-4 months. Denies any bleeding. Denies family history of colon polyps or colon cancer. He has not undergone colonoscopy as recommended at the age of 49, otherwise gives minimal additional history. PAST MEDICAL HISTORY: Diabetes, poorly controlled, polypharmacy abuse. ALLERGIES: PENICILLIN. MEDICATIONS: At the present time include vancomycin, insulin, albuterol, piperacillin, dextrose, Lovenox, clonidine, ondansetron. FAMILY AND SOCIAL HISTORY: Polypharmacy abuse. FAMILY HISTORY: Noncontributory. REVIEW OF SYSTEMS: Per records. PHYSICAL EXAMINATION: GENERAL: Reveals a well-nourished, well-developed, disabled male who is alert, cooperative, in mild distress. VITAL SIGNS: Temperature 97.9, pulse 85, respiratory rate 18, blood pressure is 139/79. LUNGS: Clear. CARDIOVASCULAR: Reveals an S1, S2 without S3, S4 or appreciable murmur. ABDOMEN: With a soft abdomen, normal bowel sounds, without appreciable hepatosplenomegaly. EXTREMITIES: Reveals no cyanosis, clubbing or edema. LABORATORY STUDIES: Hemoglobin 8.4, hematocrit 25.7, white count 7.7, platelet count is 496,000. Sodium is 135, total protein 7.2, albumin 2.8, calcium 6.2, creatinine 0.6, total bilirubin 0.1, alkaline phosphatase 146, ALT of 32, AST of 26, potassium 3.8, chloride 100, magnesium is 1.8. C-reactive protein 5.9. IMPRESSION: Fecal incontinence with diabetes, multiple wound infections, most likely is multifactorial with the antibiotics contributing C. diff and/or other overgrowth, leads to differential inflammatory bowel disease, IBS, colon cancer, ischemic colitis, collagenous colitis, certainly are possible as well. Therefore, I recommend stool studies and consider colonoscopy to further assess the symptoms once the infection has been treated. We would like to thank Dr. Naik for allowing us to consult and participate in the patient's care. ISAAC PRETTY MD DR: PAULA/nathanael JOB#: [id number] / [id number]
[2020-07-30] MEDS ORDERED: INSULIN GLARGINE SYRINGE. SQ SCH (21:00)
[2020-07-30] MEDS: VANCOMYCIN 750 MG in IV NORMAL SALINE 250ML 250 ML IV SCH (22:05)
[2020-07-30 23:08] VITALS: BP 131/70
[2020-07-31] MEDS: IV NORMAL SALINE 1000ML BAG 1,000 ML IV SCH ×2 (00:15→17:17)
[2020-07-31] MEDS: PIPERACILLIN/TAZOBACTAM 3.375 GM in IV NORMAL SALINE 50ML 50 ML IV SCH ×3 (00:15→13:50)
[2020-07-31 03:08] VITALS: BP 128/69
[2020-07-31 04:33] LABS: HEMOGLOBIN A1C 10.2 % (4.8-5.6)
[2020-07-31] MEDS: VANCOMYCIN 750 MG in IV NORMAL SALINE 250ML 250 ML IV SCH ×2 (06:07→14:00)
[2020-07-31 07:25] VITALS: BP 135/79
[2020-07-31] MEDS: IPRATROPIUM/ALBUTEROL 20/100mcg/INH INHALER. INH SCH ×3 (08:00→20:28)
--- NOTE | 2020-07-31 08:07 | PDOC ---
Infectious Disease Note Subjective Subjective Patient is feeling okay ROS ROS No nausea vomiting diarrhea continues to complain of a lot of pain Vital Sign Vital Signs Vital Signs Date Time Temp Pulse Resp B/P (MAP) Pulse Ox O2 Delivery O2 Flow Rate FiO2 07/31/20 07:25 98.4 70 18 135/79 (97) 95 Room Air 98.4 Physical Exam PHYSICAL EXAM CONSTITUTIONAL: He is lying in bed. He is cachectic in appearance. He is in no acute distress. HEENT: Pupils are equal and reactive. Oral cavity, pharynx is clear, edentulous. NECK: Supple. No JVD. LUNGS: Clear to auscultation bilaterally. HEART: S1, S2. ABDOMEN: Soft, scaphoid like. GENITOURINARY: without signs of any complications. SKIN: Warm to touch. He has some mild swelling of his lower extremities. He has multiple lesions on his lower extremities and his feet that all appear to be scabbed over. There is no gross drainage. There is minimal erythema. He also has a wound on his left hand of various sizes, sacral wound is clear without any drainage, stage 2. NEUROLOGIC: Moves all extremities. ____ his lower extremities. Labs Lab Laboratory Tests Test 07/30/20 11:05 07/30/20 16:10 07/31/20 07:16 Glucose (Fingerstick) 197 mg/dL (70-99) 242 mg/dL (70-99) 275 mg/dL (70-99) Objective Assessment 1. Multiple wounds in legs and hands. No gross cellulitis. 2. PENICILLIN ALLERGY, takes amoxicillin. 3. Cachexia. 4. Meth use. 5. Neuropathy. 6. Diabetes. 7. Complaints of stool incontinence and erectile dysfunction. Plan Plan of Care Change antibiotics to p.o. Augmentin and doxy Patient is not allergic to penicillin since patient is on Zosyn and tolerating well Local wound care patient can go to the wound care center and patient can be discharged from the infectious disease standpoint of view FREDDIE SOOD MD Jul 31, 2020 08:07
--- NOTE | 2020-07-31 08:27 | PDOC ---
[facility] [facility] PROGRESS NOTE Date of Service DOS: DATE: 07/31/20 TIME: 08:21 Chief Complaint Chief Complaint ASSESSMENT: 1. Multiple wounds, which may be related to his injecting meth on both knees and both legs, both extremities. 2. Uncontrolled diabetes. 3. Noncompliance. 4. Polysubstance abuse including meth. 5. Poorly controlled diabetes. 6. Meth and cocaine abuse. 7. Microcytic anemia, suspect iron deficiency. 8. Malnutrition., SEVERE PROTEIN-CALORIC MALNUTRITION 9. Stool incontinence and Erectile dysfunction PLAN: ADMIT IV vancomycin, DVT prophylaxis, sliding scale insulin protocol, wound care nurse, consult Infectious Disease. ADD LANTUS 10 UNITS SQ HS GI CONSULT Total time spent with the patient's exam and chart review was 37 minutes, greater than 50% of time was spent with the chart review, patient's exam, and the patient's care and coordination. Prognosis is quite poor given his history of severe noncompliance. 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 Low-grade fever overnight. Still some diarrhea today. C. difficile pending. History of Present Illness History of Present Illness HISTORY OF PRESENT ILLNESS: unfortunate 50-year-old white male with history of depression, schizophrenia and meth abuse, tobacco abuse, and now was seen in the Emergency Room, apparently has been hospital hopping, has been to , diagnosed with cellulitis. He has had problem with chronic wounds for the past 4-5 months. He developed a purulent drainage from the wound on the sacrum. Denies fever, has shortness of breath and cough, loss of smell and taste. He has been an inpatient at the for few times, but has not continued to follow up with his wound care.AMA SHX HOMELESS PMH SUBSTANCE ABUSE, METH ABUSE, DIABETES, NONCOMPLIANCE REVIEW OF SYSTEMS: The patient denies chest pain. Does admit shortness of breath, he has to crave in for breaths. Denies vision loss. He does admit to loss of taste and smell. Denies abdominal pain or vomiting. A 14-point review of systems otherwise negative except for wounds on both knees, his legs, draining wounds on the coccyx. Vitals/I&O Vitals/I&O: Vital Signs Date Time Temp Pulse Resp B/P (MAP) Pulse Ox O2 Delivery O2 Flow Rate FiO2 07/31/20 07:25 98.4 70 18 135/79 (97) 95 Room Air 98.4 I & O 07/30/20 07/30/20 07/31/20 15:00 23:00 07:00 Intake Total 600 ml 840 ml Balance 600 ml 840 ml Physical Exam Physical Exam: CONSTITUTIONAL: He is lying in bed. He is cachectic in appearance. He is in no acute distress. HEENT: Pupils are equal and reactive. Oral cavity, pharynx is clear, edentulous. NECK: Supple. No JVD. LUNGS: Clear to auscultation bilaterally. HEART: S1, S2. ABDOMEN: Soft, scaphoid like. GENITOURINARY: without signs of any complications. SKIN: Warm to touch. He has some mild swelling of his lower extremities. He has multiple lesions on his lower extremities and his feet that all appear to be scabbed over. There is no gross drainage. There is minimal erythema. He also has a wound on his left hand of various sizes, sacral wound is clear without any drainage, stage 2. NEUROLOGIC: Moves all extremities. ____ his lower extremities. General: Alert, Oriented X3, Cooperative, No acute distress Heart: Regular rate Lungs: Wheezing Abdomen: No tenderness Extremities: No clubbing, No cyanosis Skin: Other (Multiple wounds to extremities in various stages of healing) Labs Labs: Laboratory Tests Test 07/30/20 11:05 07/30/20 16:10 07/31/20 07:16 Glucose (Fingerstick) 197 mg/dL (70-99) 242 mg/dL (70-99) 275 mg/dL (70-99) Assessment and Plan Assessmemt and Plan Problems Medical Problems: (1) Non-healing wound Status: Acute (2) Poorly controlled diabetes mellitus Status: Acute Comment Review of Relevant I have reviewed the following items oli (where applicable) has been applied. Medications: Current Medications Medications (Trade) Dose Ordered Sig/Graciela Route PRN Reason Start Time Stop Time Status Last Admin Dose Admin Insulin Glargine (Lantus Syringe) 10 unit QHS SQ 07/30/20 21:00 07/30/20 20:52 Vancomycin HCl 1.25 gm/Sodium Chloride 250 ml @ 166.667 mls/hr 1X ONCE IV 07/30/20 14:00 07/30/20 15:29 DC 07/30/20 14:05 Vancomycin HCl 750 mg/Sodium Chloride 250 ml @ 250 mls/hr Q8HRS IV 07/30/20 22:00 07/31/20 06:07 Ketorolac Tromethamine (Toradol 15mg Vial) 10 mg PRN Q12HRS PRN IVP PAIN 07/30/20 15:00 08/01/20 14:59 07/30/20 15:00 Justifications for Admission Other Justification MANUEL CORNELIUS MD Jul 31, 2020 08:27
[2020-07-31] MEDS: INSULIN LISPRO 300 UNITS/3 ML VIAL. SQ SCH ×3 (08:39→17:27)
--- NOTE | 2020-07-31 10:21 | NUR ---
ZEESHAN following. Discussed with RN, pt is homeless, room air, ada diet, IV abx, COVID-19 negative. Pt refusing PT/OT. Pt positive for meth and Cannibis. MICKEY consulted. ZEESHAN will continue to follow. Addendum: 07/31/20 at 1255 by MENDEL DRUMMOND SW Sunil HAYNES) met with pt, pt stating he is homeless depressed, and suicidal - wanting to overdose on heroin. Psych placement can begin once pt is medically stable. Dr. Briones consulted. RN aware. ZEESHAN will continue to follow.
--- NOTE | 2020-07-31 10:35 | PDOC ---
Date of Service: DATE: 07/31/20 TIME: 10:29 Subjective: Subjective: Doesn't offer much information; however, reports 1 stool today and 7 yesterday. Objective: Objective: Tmax 100.0 Vital Signs: Vital Signs Date Time Temp Pulse Resp B/P (MAP) Pulse Ox O2 Delivery O2 Flow Rate FiO2 07/31/20 07:25 98.4 70 18 135/79 (97) 95 Room Air 98.4 Labs: Laboratory Tests Test 07/30/20 11:05 07/30/20 16:10 07/31/20 07:16 Glucose (Fingerstick) 197 mg/dL (70-99) 242 mg/dL (70-99) 275 mg/dL (70-99) PE: GEN: NAD - sleeping - three empty meal trays around room LUNGS: CTAB HEART: RRR ABD: non-distended NEURO/PSYCH: A & O x 3, not forthcoming A/P: DM (A1c 10.2), multiple wounds, diarrhea JEFFERY COVID negative 07/29 Homeless, +cannabinoids +meth -- Not forthcoming. 1 stool charted. C Diff and enteric panel ordered - uncollected. Justicifation of Admission Dx: Justifications for Admission: Justification of Admission Dx: Yes Cellulitis: Cellulitis RICK YADAV Jul 31, 2020 10:35
[2020-07-31 10:41] VITALS: BP 132/62
[2020-07-31 14:48] VITALS: BP 128/70
--- NOTE | 2020-07-31 16:17 | NUR ---
Wound/Ostomy Care Wound Type/Assessment: wound consult for multiple wounds. Pt has eschar covered wounds to bilateral knees with some slough and red non-granulated areas. right calf has hypergranulated ulcer to posterior calf. bilateral plantar feet have dry,dark callous with dark dry red non-granulation to left foot. coccyx has stage III PU that pt states is healing, but reopens frequently. left index finger has abrasion with red non granulation tissue. All wounds assessed and redressed. Photos in chart Treatment Recommendations/Plan: knees: eschar painted with Betadine, slough covered with honey alginate and then foam, change every 3 days. Right calf- dressed with foam, change every 2-3 days. Plantar feet painted with skin prep and covered with foam, change every 3 days. Coccyx dressed with honey alginate and foam, change every 2-3 days. Education provided: Pt educated on Pu prevention and WC POC, will need reinforcement d/t mental status Offloading surface/device: wheelchair cushion ordered. patient on 1:1, turns frequently independently Recommended Referrals/Tests: none Discharge Recommendations for dressings: continue as above noted
[2020-07-31 16:35] LABS: CALCIUM 8.3 mg/dL (8.5-10.1); CREATININE 0.5 mg/dL (0.7-1.3); GFR 175.3; POTASSIUM 4.2 mmol/L (3.5-5.1)
[2020-07-31 16:41] LABS: VANC TR 8.3 mcg/mL (10.0-20.0)
[2020-07-31] MEDS: ENOXAPARIN 40 MG/0.4 ML SYRINGE. SQ SCH (17:18)
[2020-07-31 19:15] VITALS: BP 132/62
[2020-07-31] MEDS ORDERED: traMADol 50 MG TABLET PO PRN (19:45)
--- NOTE | 2020-07-31 20:10 | NUR ---
Stool collected and sent for C Diff.
[2020-07-31] MEDS ORDERED: ARIP10TA9 PO (20:24)
--- NOTE | 2020-07-31 20:42 | NUR ---
Page to Dr. Zuluaga mason tender for Dr. Naik regarding home medication renewal.
[2020-07-31] MEDS: INSULIN GLARGINE SYRINGE. SQ SCH (21:11)
[2020-07-31] MEDS: AMOXICILLIN/K CLAV 875/125MG TABLET. PO SCH (21:12)
[2020-07-31] MEDS: MIRTAZAPINE 15 MG TABLET PO SCH (21:12)
[2020-07-31] MEDS: QUEtiapine 100 MG TABLET. PO SCH (21:12)
[2020-07-31] MEDS: DOXYCYCLINE HYCLATE 100 MG TABLET PO SCH (21:12)
[2020-07-31] MEDS: diazePAM 5 MG TABLET PO SCH (21:12)
[2020-07-31 22:41] VITALS: BP 145/64
[2020-08-01 03:20] VITALS: BP 129/60
[2020-08-01] MEDS: IV NORMAL SALINE 1000ML BAG 1,000 ML IV SCH ×2 (03:35→16:43)
[2020-08-01 07:02] VITALS: BP 143/77
--- NOTE | 2020-08-01 07:48 | PDOC ---
[facility] [facility] PROGRESS NOTE Date of Service DOS: DATE: 08/01/20 TIME: 07:44 Chief Complaint Chief Complaint ASSESSMENT: 1. Multiple wounds, which may be related to his injecting meth on both knees and both legs, both extremities. 2. Uncontrolled diabetes. 3. Noncompliance. 4. Polysubstance abuse including meth. 5. Poorly controlled diabetes. 6. Meth and cocaine abuse. 7. Microcytic anemia, suspect iron deficiency. 8. Malnutrition., SEVERE PROTEIN-CALORIC MALNUTRITION 9. Stool incontinence and Erectile dysfunction PLAN: ADMIT IV vancomycin, DVT prophylaxis, sliding scale insulin protocol, wound care nurse, consult Infectious Disease. ADD LANTUS 10 UNITS SQ HS GI CONSULT Total time spent with the patient's exam and chart review was 37 minutes, greater than 50% of time was spent with the chart review, patient's exam, and the patient's care and coordination. Prognosis is quite poor given his history of severe noncompliance. 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 Low-grade fever overnight. Still some diarrhea today. C. difficile pending. 08/01: Afebrile. Still with diarrhea. Stool studies pending. Patient currently on oral Augmentin and doxycycline. Once stools have resulted patient may be discharged on appropriate outpatient regimen. Patient did admit to suicidal ideation today. He will have a one-to-one sitter and will consult psychiatry for evaluation. History of Present Illness History of Present Illness HISTORY OF PRESENT ILLNESS: unfortunate 50-year-old white male with history of depression, schizophrenia and meth abuse, tobacco abuse, and now was seen in the Emergency Room, apparently has been hospital hopping, has been to , diagnosed with cellulitis. He has had problem with chronic wounds for the past 4-5 months. He developed a purulent drainage from the wound on the sacrum. Denies fever, has shortness of breath and cough, loss of smell and taste. He has been an inpatient at the for few times, but has not continued to follow up with his wound care.AMA SHX HOMELESS PMH SUBSTANCE ABUSE, METH ABUSE, DIABETES, NONCOMPLIANCE REVIEW OF SYSTEMS: The patient denies chest pain. Does admit shortness of breath, he has to crave in for breaths. Denies vision loss. He does admit to loss of taste and smell. Denies abdominal pain or vomiting. A 14-point review of systems otherwise negative except for wounds on both knees, his legs, draining wounds on the coccyx. Vitals/I&O Vitals/I&O: Vital Signs Date Time Temp Pulse Resp B/P (MAP) Pulse Ox O2 Delivery O2 Flow Rate FiO2 08/01/20 07:02 98.3 77 16 143/77 (99) 97 Room Air 98.3 I & O 07/31/20 07/31/20 08/01/20 15:00 23:00 07:00 Intake Total 500 ml 1200 ml Output Total 200 ml 1675 ml Balance 300 ml -475 ml Physical Exam Physical Exam: CONSTITUTIONAL: He is lying in bed. He is cachectic in appearance. He is in no acute distress. HEENT: Pupils are equal and reactive. Oral cavity, pharynx is clear, edentulous. NECK: Supple. No JVD. LUNGS: Clear to auscultation bilaterally. HEART: S1, S2. ABDOMEN: Soft, scaphoid like. GENITOURINARY: without signs of any complications. SKIN: Warm to touch. He has some mild swelling of his lower extremities. He has multiple lesions on his lower extremities and his feet that all appear to be scabbed over. There is no gross drainage. There is minimal erythema. He also has a wound on his left hand of various sizes, sacral wound is clear without any drainage, stage 2. NEUROLOGIC: Moves all extremities. ____ his lower extremities. General: Alert, Oriented X3, Cooperative, No acute distress Heart: Regular rate Lungs: Wheezing Abdomen: No tenderness Extremities: No clubbing, No cyanosis Skin: Other (Multiple wounds to extremities in various stages of healing) Labs Labs: Laboratory Tests Test 07/31/20 11:21 07/31/20 15:36 07/31/20 16:06 07/31/20 21:09 Glucose (Fingerstick) 229 mg/dL (70-99) 195 mg/dL (70-99) 290 mg/dL (70-99) Sodium Level 138 mmol/L (136-145) Potassium Level 4.2 mmol/L (3.5-5.1) Chloride Level 101 mmol/L (98-107) Carbon Dioxide Level 28 mmol/L (21-32) Anion Gap 9 (6-14) Blood Urea Nitrogen 8 mg/dL (8-26) Creatinine 0.5 mg/dL (0.7-1.3) Estimated GFR (Cockcroft-Gault) 175.3 Glucose Level 183 mg/dL (70-99) Calcium Level 8.3 mg/dL (8.5-10.1) Vancomycin Level Trough 8.3 mcg/mL (10.0-20.0) Vancomycin Last Dose Date 07/31/20 Vancomycin Last Dose Time 0600 Assessment and Plan Assessmemt and Plan Problems Medical Problems: (1) Non-healing wound Status: Acute (2) Poorly controlled diabetes mellitus Status: Acute Comment Review of Relevant I have reviewed the following items oli (where applicable) has been applied. Medications: Current Medications Medications (Trade) Dose Ordered Sig/Graciela Route PRN Reason Start Time Stop Time Status Last Admin Dose Admin Vancomycin HCl (Vancomycin Trough Level) 1 each 1X ONCE MC 07/31/20 13:30 07/31/20 13:31 DC 07/31/20 13:30 Doxycycline Hyclate (Vibra-Tab) 100 mg BID PO 07/31/20 21:00 07/31/20 21:12 Amoxicillin/ Clavulanate Potassium (Augmentin 875/ 125mg) 1 tab BID PO 07/31/20 21:00 07/31/20 21:12 Quetiapine Fumarate (SEROquel) 100 mg HS PO 07/31/20 21:00 07/31/20 21:12 Diazepam (Valium) 10 mg TID PO 07/31/20 21:00 07/31/20 21:12 Mirtazapine (Remeron) 30 mg QHS PO 07/31/20 21:00 07/31/20 21:12 Insulin Glargine (Lantus Syringe) 15 unit QHS SQ 07/31/20 21:00 07/31/20 21:11 Justifications for Admission Other Justification MANUEL CORNELIUS MD Aug 01, 2020 07:48
[2020-08-01] MEDS: IPRATROPIUM/ALBUTEROL 20/100mcg/INH INHALER. INH SCH ×4 (08:00→20:00)
--- NOTE | 2020-08-01 08:53 | PDOC ---
Infectious Disease Note Subjective Subjective Patient is feeling okay now on suicidal ideation and is on watch ROS ROS no n/v/d/ Vital Sign Vital Signs Vital Signs Date Time Temp Pulse Resp B/P (MAP) Pulse Ox O2 Delivery O2 Flow Rate FiO2 08/01/20 07:02 98.3 77 16 143/77 (99) 97 Room Air 98.3 Physical Exam PHYSICAL EXAM CONSTITUTIONAL: He is lying in bed. He is cachectic in appearance. He is in no acute distress. HEENT: Pupils are equal and reactive. Oral cavity, pharynx is clear, edentulous. NECK: Supple. No JVD. LUNGS: Clear to auscultation bilaterally. HEART: S1, S2. ABDOMEN: Soft, scaphoid like. GENITOURINARY: without signs of any complications. SKIN: Warm to touch. He has some mild swelling of his lower extremities. He has multiple lesions on his lower extremities and his feet that all appear to be scabbed over. There is no gross drainage. There is minimal erythema. He also has a wound on his left hand of various sizes, sacral wound is clear without any drainage, stage 2. NEUROLOGIC: Moves all extremities. ____ his lower extremities. Labs Lab Laboratory Tests Test 07/31/20 11:21 07/31/20 15:36 07/31/20 16:06 07/31/20 21:09 Glucose (Fingerstick) 229 mg/dL (70-99) 195 mg/dL (70-99) 290 mg/dL (70-99) Sodium Level 138 mmol/L (136-145) Potassium Level 4.2 mmol/L (3.5-5.1) Chloride Level 101 mmol/L (98-107) Carbon Dioxide Level 28 mmol/L (21-32) Anion Gap 9 (6-14) Blood Urea Nitrogen 8 mg/dL (8-26) Creatinine 0.5 mg/dL (0.7-1.3) Estimated GFR (Cockcroft-Gault) 175.3 Glucose Level 183 mg/dL (70-99) Calcium Level 8.3 mg/dL (8.5-10.1) Vancomycin Level Trough 8.3 mcg/mL (10.0-20.0) Vancomycin Last Dose Date 07/31/20 Vancomycin Last Dose Time 0600 Test 08/01/20 07:42 Glucose (Fingerstick) 184 mg/dL (70-99) Objective Assessment 1. Multiple wounds in legs and hands. No gross cellulitis. 2. PENICILLIN ALLERGY, takes amoxicillin. 3. Cachexia. 4. Meth use. 5. Neuropathy. 6. Diabetes. 7. Complaints of stool incontinence and erectile dysfunction. Plan Plan of Care p.o. Augmentin and doxy Patient is not allergic to penicillin since patient is on Zosyn and tolerating well Local wound care patient can go to the wound care center and patient can be discharged from the infectious disease standpoint of view FREDDIE SOOD MD Aug 01, 2020 08:53
--- NOTE | 2020-08-01 10:35 | PDOC ---
Date of Service: DATE: 08/01/20 TIME: 10:33 Subjective: Subjective: Diarrhea is "fine." Objective: Objective: Has 1:1 for SI - tolerating diet, no stools this morning, one stool overnight. Vital Signs: Vital Signs Date Time Temp Pulse Resp B/P (MAP) Pulse Ox O2 Delivery O2 Flow Rate FiO2 08/01/20 07:02 98.3 77 16 143/77 (99) 97 Room Air 98.3 Labs: Laboratory Tests Test 07/31/20 11:21 07/31/20 15:36 07/31/20 16:06 07/31/20 21:09 Glucose (Fingerstick) 229 mg/dL 195 mg/dL 290 mg/dL Sodium Level 138 mmol/L Potassium Level 4.2 mmol/L Chloride Level 101 mmol/L Carbon Dioxide Level 28 mmol/L Anion Gap 9 Blood Urea Nitrogen 8 mg/dL Creatinine 0.5 mg/dL Estimated GFR (Cockcroft-Gault) 175.3 Glucose Level 183 mg/dL Calcium Level 8.3 mg/dL Vancomycin Level Trough 8.3 mcg/mL Vancomycin Last Dose Date 07/31/20 Vancomycin Last Dose Time 0600 Test 08/01/20 07:42 Glucose (Fingerstick) 184 mg/dL PE: GEN: NAD LUNGS: CTAB HEART: RRR ABD:non-distended NEURO/PSYCH: was resting, briefly awakens A/P: DM, wounds, substance abuse Diarrhea - better JEFFERY COVID negative 07/29 -- Stool tests pending, continue same per GI. Justicifation of Admission Dx: Justifications for Admission: Justification of Admission Dx: Yes Cellulitis: Cellulitis RICK YADAV Aug 01, 2020 10:35
--- NOTE | 2020-08-01 10:36 | NUR ---
SS following up with discharge planning. SS reviewed pt chart and discussed with pt RN. Pt is currently on room air. COVID19 negative. Pt positive for Meth and THC. Pt had SI on admission. COVID19 negative. Pt now medically stable. 1:1. SS met with pt in room and pt reported that he is still having thoughts of SI. SS discussed possible need for placement with pt and pt reported that he was agreeable. SS contacted PAT team and Sunil from PAT team to come visit with pt. Physician notified and reported that pt denied SI to him this morning. SS currently awaiting PAT team assessment and recommendations and will proceed accordingly. Packet placed on chart.
[2020-08-01 10:37] VITALS: BP 144/69
[2020-08-01] MEDS: AMOXICILLIN/K CLAV 875/125MG TABLET. PO SCH ×2 (11:00→21:19)
[2020-08-01] MEDS: diazePAM 5 MG TABLET PO SCH ×3 (11:00→21:19)
[2020-08-01] MEDS: CITALOPRAM 20 MG TABLET. PO SCH (11:00)
[2020-08-01] MEDS: ARIPiprazole 5 MG TABLET PO SCH (11:01)
[2020-08-01] MEDS: DOXYCYCLINE HYCLATE 100 MG TABLET PO SCH ×2 (11:01→21:20)
[2020-08-01] MEDS: INSULIN LISPRO 300 UNITS/3 ML VIAL. SQ SCH ×3 (11:11→17:00)
[2020-08-01 11:45] LABS: BASO % 1 % (0-3); EOS # 0.1 x10^3/uL (0.0-0.7); EOS % 2 % (0-3); HEMATOCRIT 30.5 % (39.0-53.0); HEMOGLOBIN 9.7 g/dL (13.0-17.5); LYMPH # 1.4 x10^3/uL (1.0-4.8); LYMPH % 35 % (24-48); MEAN CORPUSCULAR HEMOGLOBIN 25 pg (25-35); MEAN CORPUSCULAR HGB CONC 32 g/dL (31-37); MEAN CORPUSCULAR VOLUME 78 fL (79-100); MONO # 0.4 x10^3/uL (0.0-1.1); MONO % 10 % (0-9); NEUT # 2.1 x10^3/uL (1.8-7.7); NEUT % 52 % (31-73); PLATELET COUNT 468 x10^3/uL (140-400); RED BLOOD COUNT 3.89 x10^6/uL (4.30-5.70); RED CELL DISTRIBUTION WIDTH 16.4 % (11.5-14.5)
[2020-08-01 12:02] LABS: CALCIUM 8.9 mg/dL (8.5-10.1); CREATININE 0.5 mg/dL (0.7-1.3); GFR 175.3; POTASSIUM 3.7 mmol/L (3.5-5.1)
--- NOTE | 2020-08-01 12:03 | NUR ---
SS following up with discharge planning. Sunil from PAT team met with pt. Referrals for inpatient hospitalization phoned and faxed to [facility]. SS will continue to follow for discharge planning.
[2020-08-01 15:25] VITALS: BP 138/66
[2020-08-01] MEDS: MULTIVITAMIN with MINERAL TABLET. PO SCH (17:44)
[2020-08-01] MEDS: ENOXAPARIN 40 MG/0.4 ML SYRINGE. SQ SCH (17:44)
[2020-08-01 19:00] VITALS: BP 142/77
[2020-08-01] MEDS: QUEtiapine 100 MG TABLET. PO SCH (21:19)
[2020-08-01] MEDS: MIRTAZAPINE 15 MG TABLET PO SCH (21:20)
[2020-08-01] MEDS: INSULIN GLARGINE SYRINGE. SQ SCH (21:25)
[2020-08-01 23:01] VITALS: BP 160/85
[2020-08-02] MEDS: IV NORMAL SALINE 1000ML BAG 1,000 ML IV SCH ×2 (01:56→10:00)
[2020-08-02 03:00] VITALS: BP 153/77
[2020-08-02 06:44] VITALS: BP 145/97
[2020-08-02] MEDS: IPRATROPIUM/ALBUTEROL 20/100mcg/INH INHALER. INH SCH ×4 (08:00→20:00)
[2020-08-02] MEDS: INSULIN LISPRO 300 UNITS/3 ML VIAL. SQ SCH ×3 (08:00→17:45)
--- NOTE | 2020-08-02 09:17 | NUR ---
ZEESHAN following. Discussed with RN, yaz woo, on a 1:1 for SI. [facility] declined to take pt. Awaiting acceptance decision from Derek Langley. ZEESHAN will continue to follow. Addendum: 08/02/20 at 1224 by MENDEL BYERS Derek declined to take pt. Shawna with [facility]KEY coming back to see patient. ZEESHAN will continue to follow. Addendum: 08/02/20 at 1607 by EMNDEL BYERS Osiris HAYNES) met with pt, pt stating he is only suicidal because of being homeless, and if he has somewhere to go he won't be suicidal anymore. Pt agreeable to going to a [facility] operator care. ZEESHAN spoke with Hitesh at [facility], explained the SI situation, [facility] will review the referral. Pt does not have a preference of facility, choice of vendor form completed. 1:1 being removed per PAT recommendation, as well as plans for facility placement. RN notified. SW will continue to follow.
--- NOTE | 2020-08-02 09:20 | PDOC ---
Date of Service: DATE: 08/02/20 TIME: 09:18 Subjective: Subjective: Eating fine, no diarrhea, no abd pain. Objective: Objective: D/w nurse - no GI concerns. Has 1:1 sitter. Vital Signs: Vital Signs Date Time Temp Pulse Resp B/P (MAP) Pulse Ox O2 Delivery O2 Flow Rate FiO2 08/02/20 07:57 Room Air 08/02/20 06:44 96.2 87 16 145/97 (113) 95 96.2 Labs: Laboratory Tests Test 08/01/20 11:06 08/01/20 16:41 08/01/20 20:44 08/02/20 06:41 Glucose (Fingerstick) 195 mg/dL (70-99) 144 mg/dL (70-99) 212 mg/dL (70-99) 96 mg/dL (70-99) PE: GEN: NAD - watching tv, eating breakfast LUNGS: CTAB HEART: RRR ABD: non-distended NEURO/PSYCH: A & O 3 A/P: DM, wounds, substance abuse, SI Diarrhea - resolved; enteric panel and C Diff negative JEFFERY COVID negative 07/29 -- Improved GI-[place]. DC per primary. Ideally would have outpt scopes re: JEFFERY; difficult situation w/ homelessness. Justicifation of Admission Dx: Justifications for Admission: Justification of Admission Dx: Yes Cellulitis: Cellulitis GALLITO-RICK CALDERON Aug 02, 2020 09:20
[2020-08-02] MEDS: AMOXICILLIN/K CLAV 875/125MG TABLET. PO SCH ×2 (09:57→20:29)
[2020-08-02] MEDS: CITALOPRAM 20 MG TABLET. PO SCH (09:57)
[2020-08-02] MEDS: ARIPiprazole 5 MG TABLET PO SCH (09:57)
[2020-08-02] MEDS: DOXYCYCLINE HYCLATE 100 MG TABLET PO SCH ×2 (09:57→20:29)
[2020-08-02] MEDS: diazePAM 5 MG TABLET PO SCH ×3 (09:57→20:29)
[2020-08-02] MEDS: MULTIVITAMIN with MINERAL TABLET. PO SCH (09:57)
[2020-08-02 10:33] VITALS: BP 155/79
--- NOTE | 2020-08-02 12:49 | PDOC ---
[employer] PROGRESS NOTE Date of Service DOS: DATE: 08/02/20 TIME: 12:52 Chief Complaint Chief Complaint ASSESSMENT: 1. Multiple wounds, which may be related to his injecting meth on both knees and both legs, both extremities. 2. Uncontrolled diabetes. 3. Noncompliance. 4. Polysubstance abuse including meth. 5. Poorly controlled diabetes. 6. Meth and cocaine abuse. 7. Microcytic anemia, suspect iron deficiency. 8. Malnutrition., SEVERE PROTEIN-CALORIC MALNUTRITION 9. Stool incontinence and Erectile dysfunction PLAN: ADMIT IV vancomycin, DVT prophylaxis, sliding scale insulin protocol, wound care nurse, consult Infectious Disease. ADD LANTUS 10 UNITS SQ HS GI CONSULT Total time spent with the patient's exam and chart review was 37 minutes, greater than 50% of time was spent with the chart review, patient's exam, and the patient's care and coordination. Prognosis is quite poor given his history of severe noncompliance. 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 Low-grade fever overnight. Still some diarrhea today. C. difficile pending. 2: Afebrile. Still with diarrhea. Stool studies pending. Patient currently on oral Augmentin and doxycycline. Once stools have resulted patient may be discharged on appropriate outpatient regimen. Patient did admit to suicidal ideation today. He will have a one-to-one sitter and will consult psychiatry for evaluation. 08/02: Patient seen and evaluated bedside. No complaints today. States he is sleepy. Psych consultation pending. History of Present Illness History of Present Illness HISTORY OF PRESENT ILLNESS: unfortunate 50-year-old white male with history of depression, schizophrenia and meth abuse, tobacco abuse, and now was seen in the Emergency Room, apparently has been hospital hopping, has been to , diagnosed with cellulitis. He has had problem with chronic wounds for the past 4-5 months. He developed a purulent drainage from the wound on the sacrum. Denies fever, has shortness of breath and cough, loss of smell and taste. He has been an inpatient at the for few times, but has not continued to follow up with his wound care.[facility]ESS [facility] SUBSTANCE ABUSE, METH ABUSE, DIABETES, NONCOMPLIANCE REVIEW OF SYSTEMS: The patient denies chest pain. Does admit shortness of breath, he has to crave in for breaths. Denies vision loss. He does admit to loss of taste and smell. Denies abdominal pain or vomiting. A 14-point review of systems otherwise negative except for wounds on both knees, his legs, draining wounds on the coccyx. Vitals/I&O Vitals/I&O: Vital Signs Date Time Temp Pulse Resp B/P (MAP) Pulse Ox O2 Delivery O2 Flow Rate FiO2 08/02/20 10:33 95.6 69 18 155/79 (104) 97 Room Air 95.6 I & O 08/01/20 08/01/20 08/02/20 14:55 22:55 06:55 Intake Total 240 ml 940 ml 2400 ml Output Total 850 ml 400 ml 1250 ml Balance -610 ml 540 ml 1150 ml Physical Exam Physical Exam: CONSTITUTIONAL: He is lying in bed. He is cachectic in appearance. He is in no acute distress. HEENT: Pupils are equal and reactive. Oral cavity, pharynx is clear, edentulous. NECK: Supple. No JVD. LUNGS: Clear to auscultation bilaterally. HEART: S1, S2. ABDOMEN: Soft, scaphoid like. GENITOURINARY: without signs of any complications. SKIN: Warm to touch. He has some mild swelling of his lower extremities. He has multiple lesions on his lower extremities and his feet that all appear to be scabbed over. There is no gross drainage. There is minimal erythema. He also has a wound on his left hand of various sizes, sacral wound is clear without any drainage, stage 2. NEUROLOGIC: Moves all extremities. ____ his lower extremities. General: Alert, Oriented X3, Cooperative, No acute distress Heart: Regular rate Lungs: Wheezing Abdomen: No tenderness Extremities: No clubbing, No cyanosis Skin: Other (Multiple wounds to extremities in various stages of healing) Labs Labs: Laboratory Tests Test 08/01/20 16:41 08/01/20 20:44 08/02/20 06:41 08/02/20 11:28 Glucose (Fingerstick) 144 mg/dL (70-99) 212 mg/dL (70-99) 96 mg/dL (70-99) 169 mg/dL (70-99) Assessment and Plan Assessmemt and Plan Problems Medical Problems: (1) Non-healing wound Status: Acute (2) Poorly controlled diabetes mellitus Status: Acute Comment Review of Relevant I have reviewed the following items oli (where applicable) has been applied. Medications: Current Medications Medications (Trade) Dose Ordered Sig/Graciela Route PRN Reason Start Time Stop Time Status Last Admin Dose Admin Multivitamins (Thera M Plus) 1 tab DAILY PO 08/01/20 17:00 08/02/20 09:57 Justifications for Admission Other Justification MANUEL CORNELIUS MD Aug 02, 2020 12:49
[2020-08-02 14:17] VITALS: BP 141/80
[2020-08-02 15:23] LABS: CALCIUM 8.8 mg/dL (8.5-10.1); CREATININE 0.5 mg/dL (0.7-1.3); GFR 175.3; POTASSIUM 3.9 mmol/L (3.5-5.1)
[2020-08-02] MEDS: ENOXAPARIN 40 MG/0.4 ML SYRINGE. SQ SCH (17:42)
[2020-08-02 19:00] VITALS: BP 140/72
[2020-08-02] MEDS: MIRTAZAPINE 15 MG TABLET PO SCH (20:29)
[2020-08-02] MEDS: QUEtiapine 100 MG TABLET. PO SCH (20:29)
[2020-08-02] MEDS: LACTOBACILLUS RHAMNOSUS GG 1 CAPSULE. PO SCH (20:29)
[2020-08-02] MEDS: INSULIN GLARGINE SYRINGE. SQ SCH (21:11)
[2020-08-02 23:00] VITALS: BP 137/90
[2020-08-03 03:00] VITALS: BP 144/84
[2020-08-03 07:00] VITALS: BP 156/58
[2020-08-03] MEDS: IPRATROPIUM/ALBUTEROL 20/100mcg/INH INHALER. INH SCH ×2 (08:00→12:00)
[2020-08-03] MEDS: ARIPiprazole 5 MG TABLET PO SCH (08:22)
[2020-08-03] MEDS: diazePAM 5 MG TABLET PO SCH ×2 (08:23→14:04)
[2020-08-03] MEDS: MULTIVITAMIN with MINERAL TABLET. PO SCH (08:23)
[2020-08-03] MEDS: CITALOPRAM 20 MG TABLET. PO SCH (08:23)
[2020-08-03] MEDS: LACTOBACILLUS RHAMNOSUS GG 1 CAPSULE. PO SCH (08:23)
[2020-08-03] MEDS: AMOXICILLIN/K CLAV 875/125MG TABLET. PO SCH (08:23)
[2020-08-03] MEDS: DOXYCYCLINE HYCLATE 100 MG TABLET PO SCH (08:23)
[2020-08-03] MEDS: INSULIN LISPRO 300 UNITS/3 ML VIAL. SQ SCH ×2 (08:28→12:02)
--- NOTE | 2020-08-03 09:08 | NUR ---
ZEESHAN following. Discussed with RN. Proctor from [facility] coming to meet with pt this morning. SW awaiting acceptance decision. ZEESHAN will continue to follow. NIEVES notified. Addendum: 08/03/20 at 1422 by MENDEL BYERS Pt accepted at [facility] intermediate card tender care. Dr. Zuluaga notified of need for discharge order stating "emergency admission to intermediate card tender care." [facility] arranged transportation for between [id number] Zuluaga notified. Awaiting discharge orders. ZEESHAN will continue to follow. Addendum: 08/03/20 at 1456 by MENDEL BYERS Discharge orders faxed to [facility]. No further SW needs.
[2020-08-03 10:06] LABS: CALCIUM 8.6 mg/dL (8.5-10.1); CREATININE 0.5 mg/dL (0.7-1.3); GFR 175.3
--- NOTE | 2020-08-03 10:06 | PDOC ---
Date of Service: DATE: 08/03/20 TIME: 10:04 Subjective: Subjective: Eating well, no abd pain, no diarrhea, doing better. Objective: Vital Signs: Vital Signs Date Time Temp Pulse Resp B/P (MAP) Pulse Ox O2 Delivery O2 Flow Rate FiO2 08/03/20 07:00 98.1 87 16 156/58 (90) 96 Room Air 98.1 Labs: Laboratory Tests Test 08/02/20 11:28 08/02/20 16:54 08/02/20 20:58 08/03/20 08:01 Glucose (Fingerstick) 169 mg/dL (70-99) 191 mg/dL (70-99) 188 mg/dL (70-99) 210 mg/dL (70-99) PE: GEN: NAD LUNGS: CTAB HEART: RRR ABD: soft, non-tender NEURO/PSYCH: A & O 3 A/P: DM, wounds, SI JEFFERY, diarrhea (resolved) COVID negative 07/29 -- DC per primary. Outpt scopes. Justicifation of Admission Dx: Justifications for Admission: Justification of Admission Dx: Yes Cellulitis: Cellulitis RICK YADAV Aug 03, 2020 10:05
--- NOTE | 2020-08-03 10:36 | PDOC ---
[employer] PROGRESS NOTE Date of Service DOS: DATE: 08/03/20 TIME: 10:32 Chief Complaint Chief Complaint ASSESSMENT: 1. Multiple wounds, which may be related to his injecting meth on both knees and both legs, both extremities. 2. Uncontrolled diabetes. 3. Noncompliance. 4. Polysubstance abuse including meth. 5. Poorly controlled diabetes. 6. Meth and cocaine abuse. 7. Microcytic anemia, suspect iron deficiency. 8. Malnutrition., SEVERE PROTEIN-CALORIC MALNUTRITION 9. Stool incontinence and Erectile dysfunction PLAN: ADMIT IV vancomycin, DVT prophylaxis, sliding scale insulin protocol, wound care nurse, consult Infectious Disease. ADD LANTUS 10 UNITS SQ HS GI CONSULT Total time spent with the patient's exam and chart review was 37 minutes, greater than 50% of time was spent with the chart review, patient's exam, and the patient's care and coordination. Prognosis is quite poor given his history of severe noncompliance. 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 Low-grade fever overnight. Still some diarrhea today. C. difficile pending. 08/01: Afebrile. Still with diarrhea. Stool studies pending. Patient currently on oral Augmentin and doxycycline. Once stools have resulted patient may be discharged on appropriate outpatient regimen. Patient did admit to suicidal ideation today. He will have a one-to-one sitter and will consult psychiatry for evaluation. 08/02: Patient seen and evaluated bedside. No complaints today. States he is sleepy. Psych consultation pending. 08/03: Afebrile, denies diarrhea. Discussed with patient, his suicidal ideation is only situational because he is homeless, and if he had stable living e [facility] he would not endorse suicidality. He has no active thoughts of hurting herself at the moment. 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 History of Present Illness History of Present Illness HISTORY OF PRESENT ILLNESS: unfortunate 50-year-old white male with history of depression, schizophrenia and meth abuse, tobacco abuse, and now was seen in the Emergency Room, apparently has been hospital hopping, has been to , diagnosed with cellulitis. He has had problem with chronic wounds for the past 4-5 months. He developed a purulent drainage from the wound on the sacrum. Denies fever, has shortness of breath and cough, loss of smell and taste. He has been an inpatient at the for few times, but has not continued to follow up with his wound care.[facility] HOMELESS [facility] SUBSTANCE ABUSE, METH ABUSE, DIABETES, NONCOMPLIANCE REVIEW OF SYSTEMS: The patient denies chest pain. Does admit shortness of breath, he has to crave in for breaths. Denies vision loss. He does admit to loss of taste and smell. Denies abdominal pain or vomiting. A 14-point review of systems otherwise negative except for wounds on both knees, his legs, draining wounds on the coccyx. Vitals/I&O Vitals/I&O: Vital Signs Date Time Temp Pulse Resp B/P (MAP) Pulse Ox O2 Delivery O2 Flow Rate FiO2 08/03/20 07:00 98.1 87 16 156/58 (90) 96 Room Air 98.1 I & O 08/02/20 08/02/20 08/03/20 15:00 23:00 07:00 Intake Total 240 ml 250 ml Balance 240 ml 250 ml Physical Exam Physical Exam: SKIN: Warm to touch. He has some mild swelling of his lower extremities. He has multiple lesions on his lower extremities and his feet that all appear to be scabbed over. There is no gross drainage. There is minimal erythema. He also has a wound on his left hand of various sizes, sacral wound is clear without any drainage, stage 2. General: Alert, Cooperative, No acute distress, Other (Cachectic) Heart: Regular rate Lungs: Wheezing Abdomen: No tenderness Extremities: No clubbing, No cyanosis Skin: Other (Multiple wounds to extremities in various stages of healing) Labs Labs: Laboratory Tests Test 08/02/20 11:28 08/02/20 15:00 08/02/20 16:54 08/02/20 20:58 Glucose (Fingerstick) 169 mg/dL (70-99) 191 mg/dL (70-99) 188 mg/dL (70-99) Sodium Level 140 mmol/L (136-145) Potassium Level 3.9 mmol/L (3.5-5.1) Chloride Level 104 mmol/L (98-107) Carbon Dioxide Level 31 mmol/L (21-32) Anion Gap 5 (6-14) Blood Urea Nitrogen 9 mg/dL (8-26) Creatinine 0.5 mg/dL (0.7-1.3) Estimated GFR (Cockcroft-Gault) 175.3 Glucose Level 150 mg/dL (70-99) Calcium Level 8.8 mg/dL (8.5-10.1) Test 08/03/20 08:01 08/03/20 09:35 Glucose (Fingerstick) 210 mg/dL (70-99) Sodium Level 139 mmol/L (136-145) Potassium Level 4.0 mmol/L (3.5-5.1) Chloride Level 104 mmol/L (98-107) Carbon Dioxide Level 29 mmol/L (21-32) Anion Gap 6 (6-14) Blood Urea Nitrogen 11 mg/dL (8-26) Creatinine 0.5 mg/dL (0.7-1.3) Estimated GFR (Cockcroft-Gault) 175.3 Glucose Level 223 mg/dL (70-99) Calcium Level 8.6 mg/dL (8.5-10.1) Assessment and Plan Assessmemt and Plan Problems Medical Problems: (1) Non-healing wound Status: Acute (2) Poorly controlled diabetes mellitus Status: Acute Comment Review of Relevant I have reviewed the following items oli (where applicable) has been applied. Medications: Current Medications Medications (Trade) Dose Ordered Sig/Graciela Route PRN Reason Start Time Stop Time Status Last Admin Dose Admin Lactobacillus Rhamnosus (Culturelle) 1 cap BID PO 08/02/20 21:00 08/03/20 08:23 Justifications for Admission Other Justification MANUEL CORNELIUS MD Aug 03, 2020 10:36
[2020-08-03 11:00] VITALS: BP 161/81
--- NOTE | 2020-08-03 14:32 | SNU/HH DC ---
DISCHARGE ORDERS DISCHARGE INFORMATION: DISCHARGE DATE: Aug 03, 2020 FINAL DIAGNOSIS Problems Medical Problems: (1) Non-healing wound Status: Acute (2) Poorly controlled diabetes mellitus Status: Acute CONDITION ON DISCHARGE: Stable CODE STATUS: Code Status: Full LTAC: ADMIT TO LTAC: Yes POST DISCHARGE ORDERS: ACTIVITY ORDERS: Activity as tolerated WEIGHT BEARING STATUS: No restrictions DIET AFTER DISCHARGE: ADA WOUND/INCISION CARE: Change dressing, Other, see below OTHER ORDERS: Emergency admission to [facility] CHECKS AFTER DISCHARGE: CHECKS AFTER DISCHARGE: Check blood press - daily, Check blood sugar, ac/hs TREATMENT/EQUIPMENT ORDERS: ADAPTIVE EQUIPMENT NEEDED: None Physical Therapy For: Evalulation/Treatment Occupational Therapy For: Evaluation/Treatment DISCHARGE MEDICATIONS: Home Meds Active Scripts Insulin Lispro (Admelog) 100 Unit/1 Ml Vial, 0 UNITS SQ TIDWMEALS for DIABETES for 28 Days, #2 EACH Prov:ANTOINETTE THOMPSON MD 02/24/20 Insulin Glargine,Hum.rec.anlog (LANTUS) 100 Unit/1 Ml Vial, 15 UNIT SQ QHS for DIABETES for 30 Days, #1 EACH Prov:ANTOINETTE THOMPSON MD 02/24/20 Doxycycline Hyclate (DOXYCYCLINE HYCLATE) 100 Mg Tablet, 100 MG PO BID for INFECTION for 10 Days, #20 TAB Prov:ANTOINETTE THOMPSON MD 02/24/20 [Nicotine 21MG] 1 PATCH PATCH No Conflict Check, 1 PATCH TD DAILY for Smoker for 30 Days, #30 Prov:ANTOINETTE VELA MD 05/12/19 Reported Medications Aripiprazole (ABILIFY) 10 Mg Tablet, 1 TAB PO DAILY for voices,hallucination for 30 Days, #30 TAB 0 Refills 07/31/20 Diazepam (VALIUM) 10 Mg Tablet, 10 MG PO TID for anxiety, TAB 05/09/19 Quetiapine Fumarate (SEROQUEL) 100 Mg Tablet, 100 MG PO HS for schizophrenia, TAB 05/09/19 Mirtazapine (REMERON) 30 Mg Tablet, 30 MG PO HS for depression, TAB 05/09/19 Citalopram Hydrobromide (CELEXA) 20 Mg Tablet, 40 MG PO DAILY for depression, TAB 05/09/19 MANUEL CORNELIUS MD Aug 03, 2020 14:32
[2020-08-03] MEDS ORDERED: DOXY100T PO (14:37)
[2020-08-03] MEDS ORDERED: AMOX1TAB11 PO (14:37)
--- NOTE | 2020-08-03 14:43 | PDOC3 ---
Discharge Summary Visit Information Date of Admission: Jul 29, 2020 Date of Discharge: Aug 03, 2020 Final Diagnosis Problems Medical Problems: (1) Non-healing wound Status: Acute (2) Poorly controlled diabetes mellitus Status: Acute Brief Hospital Course Allergies Allergies Coded Allergies Type Severity Reaction Last Updated Verified Penicillins Allergy Intermediate hives 07/29/20 Yes Vital Signs Vital Signs Date Time Temp Pulse Resp B/P (MAP) Pulse Ox O2 Delivery O2 Flow Rate FiO2 08/03/20 11:00 98.2 78 18 161/81 (107) 98 Room Air 98.2 Lab Results Laboratory Tests Test 08/01/20 16:41 08/01/20 20:44 08/02/20 06:41 08/02/20 11:28 Glucose (Fingerstick) 144 mg/dL (70-99) 212 mg/dL (70-99) 96 mg/dL (70-99) 169 mg/dL (70-99) Test 08/02/20 15:00 08/02/20 16:54 08/02/20 20:58 08/03/20 08:01 Sodium Level 140 mmol/L (136-145) Potassium Level 3.9 mmol/L (3.5-5.1) Chloride Level 104 mmol/L (98-107) Carbon Dioxide Level 31 mmol/L (21-32) Anion Gap 5 (6-14) Blood Urea Nitrogen 9 mg/dL (8-26) Creatinine 0.5 mg/dL (0.7-1.3) Estimated GFR (Cockcroft-Gault) 175.3 Glucose Level 150 mg/dL (70-99) Calcium Level 8.8 mg/dL (8.5-10.1) Glucose (Fingerstick) 191 mg/dL (70-99) 188 mg/dL (70-99) 210 mg/dL (70-99) Test 08/03/20 09:35 08/03/20 11:05 Sodium Level 139 mmol/L (136-145) Potassium Level 4.0 mmol/L (3.5-5.1) Chloride Level 104 mmol/L (98-107) Carbon Dioxide Level 29 mmol/L (21-32) Anion Gap 6 (6-14) Blood Urea Nitrogen 11 mg/dL (8-26) Creatinine 0.5 mg/dL (0.7-1.3) Estimated GFR (Cockcroft-Gault) 175.3 Glucose Level 223 mg/dL (70-99) Calcium Level 8.6 mg/dL (8.5-10.1) Glucose (Fingerstick) 226 mg/dL (70-99) Laboratory Tests Test 08/02/20 15:00 08/02/20 16:54 08/02/20 20:58 08/03/20 08:01 Sodium Level 140 mmol/L (136-145) Potassium Level 3.9 mmol/L (3.5-5.1) Chloride Level 104 mmol/L (98-107) Carbon Dioxide Level 31 mmol/L (21-32) Anion Gap 5 (6-14) Blood Urea Nitrogen 9 mg/dL (8-26) Creatinine 0.5 mg/dL (0.7-1.3) Estimated GFR (Cockcroft-Gault) 175.3 Glucose Level 150 mg/dL (70-99) Calcium Level 8.8 mg/dL (8.5-10.1) Glucose (Fingerstick) 191 mg/dL (70-99) 188 mg/dL (70-99) 210 mg/dL (70-99) Test 08/03/20 09:35 08/03/20 11:05 Sodium Level 139 mmol/L (136-145) Potassium Level 4.0 mmol/L (3.5-5.1) Chloride Level 104 mmol/L (98-107) Carbon Dioxide Level 29 mmol/L (21-32) Anion Gap 6 (6-14) Blood Urea Nitrogen 11 mg/dL (8-26) Creatinine 0.5 mg/dL (0.7-1.3) Estimated GFR (Cockcroft-Gault) 175.3 Glucose Level 223 mg/dL (70-99) Calcium Level 8.6 mg/dL (8.5-10.1) Glucose (Fingerstick) 226 mg/dL (70-99) Brief Hospital Course Mr. Shultz is a 50 old male who presented with multiple nonhealing diabetic ulcers. Patient is homeless and has been apparently bouncing back and forth between hospital ERs without any compliance. Consultations were placed to infectious disease. Patient was treated with Augmentin and doxycycline to complete full 10-day course. Consultation was also placed to GI for history of diarrhea. Stool cultures were obtained that were negative for C. difficile or any other organisms. Patient did at some point during his hospital course complaint of suicidal ideology. After further discussion with patient it was deemed that this suicidal ideation was secondary to his current living situation, and that if he were not homeless he is not endorsing suicidality. With help of case management social worker were able to find patient emergency long-term care. Discharge Information Condition at Discharge: Stable Disposition/Orders: D/C to Another Facility Scheduled Amoxicillin/Potassium Clav (Amox Tr-K Clv 875-125 Mg Tab) 1 Each Tablet, 1 TAB PO BID for Cellulitis for 7 Days, #14 Prescribed by: MANUEL CORNELIUS MD on 08/03/20 1437 Aripiprazole (Abilify) 10 Mg Tablet, 1 TAB PO DAILY for voices,hallucination for 30 Days, #30 Ref 0 (Reported) Entered as Reported by: DRAGAN CASON on 07/31/202023 Last Action: Converted on 07/31/202047 by MANUEL CORNELIUS MD Citalopram Hydrobromide (Celexa) 20 Mg Tablet, 40 MG PO DAILY for depression, (Reported) Entered as Reported by: KAZ STALEY on 05/09/192234 Last Action: Continued on 07/31/202047 by MANUEL CORNELIUS MD Diazepam (Valium) 10 Mg Tablet, 10 MG PO TID for anxiety, (Reported) Entered as Reported by: KAZ STALEY on 05/09/192234 Last Action: Converted on 07/31/202047 by MANUEL CORNELIUS MD Doxycycline Hyclate (Doxycycline Hyclate) 100 Mg Tablet, 100 MG PO BID for Cellulitis for 7 Days, #14 Prescribed by: MANUEL CORNELIUS MD on 08/03/20 1437 Insulin Glargine,Hum.rec.anlog (Lantus) 100 Unit/1 Ml Vial, 15 UNIT SQ QHS for DIABETES for 30 Days, #1 Prescribed by: ANTOINETTE THOMPSON MD on 02/24/20 1348 Insulin Lispro (Admelog) 100 Unit/1 Ml Vial, 0 UNITS SQ TIDWMEALS for DIABETES for 28 Days, #2 Prescribed by: ANTOINETTE THOMPSON MD on 02/24/20 1348 Mirtazapine (Remeron) 30 Mg Tablet, 30 MG PO HS for depression, (Reported) Entered as Reported by: KAZ STALEY on 05/09/192234 Last Action: Converted on 07/31/202047 by MANUEL CORNELIUS MD Quetiapine Fumarate (Seroquel) 100 Mg Tablet, 100 MG PO HS for schizophrenia, (Reported) Entered as Reported by: KAZ STALEY on 05/09/192234 Last Action: Continued on 07/31/202047 by MANUEL CORNELIUS MD [Nicotine 21MG] 1 PATCH PATCH, 1 PATCH TD DAILY for Smoker for 30 Days, #30 Prescribed by: ANTOINETTE VELA MD on 05/12/19 1528 Last Action: HELD on 07/31/202047 by MANUEL CORNELIUS MD Discontinued Medications Doxycycline Hyclate (Doxycycline Hyclate) 100 Mg Tablet, 100 MG PO BID for INFECTION for 10 Days, #20 Prescribed by: ANTOINETTE THOMPSON MD on 02/24/20 1348 Justicifation of Admission Dx: Justifications for Admission: Justification of Admission Dx: Yes Cellulitis: Cellulitis MANUEL CORNELIUS MD Aug 03, 2020 14:43
[2020-08-03 15:00] VITALS: BP 148/88
--- NOTE | 2020-08-03 15:58 | NUR ---
Attempted report called to [facility]. They stated nurse was busy and would return call to receive report.
--- NOTE | 2020-08-03 16:02 | NUR ---
Pt. refusing to have d/c photos taken of wounds.
--- NOTE | 2020-08-03 16:18 | NUR ---
Pt. discharged to [facility] via WC per transportation. Still awaiting call back to give report to nurse at [facility].
== END 2020-08-03 17:10 | DRG 637 ==
LOC: ER 03:24 → 6 SOUTH 06:33 → 4 NORTH 07-30 15:28
PROVIDERS: ADMIT Family Medicine; ATTEND Family Medicine
DX: E10.622 Type 1 diabetes mellitus with other skin ulcer (principal); E43 Unspecified severe protein-calorie malnutrition; L03.115 Cellulitis of right lower limb; R45.851 Suicidal ideations; R64 Cachexia; L97.921 Non-pressure chronic ulcer of unspecified part of left lower leg limited to breakdown of skin; E10.65 Type 1 diabetes mellitus with hyperglycemia; F14.10 Cocaine abuse, uncomplicated; D50.9 Iron deficiency anemia, unspecified; F12.90 Cannabis use, unspecified, uncomplicated; F15.10 Other stimulant abuse, uncomplicated; F17.200 Nicotine dependence, unspecified, uncomplicated; F20.9 Schizophrenia, unspecified; F31.9 Bipolar disorder, unspecified; F41.0 Panic disorder [episodic paroxysmal anxiety]; I10 Essential (primary) hypertension; L98.429 Non-pressure chronic ulcer of back with unspecified severity; L98.499 Non-pressure chronic ulcer of skin of other sites with unspecified severity; N52.9 Male erectile dysfunction, unspecified; R15.9 Full incontinence of feces; Z20.822 Contact with and (suspected) exposure to COVID-19; Z59.0 Homelessness; Z79.4 Long term (current) use of insulin; Z79.899 Other long term (current) drug therapy; Z82.5 Family history of asthma and other chronic lower respiratory diseases; Z88.0 Allergy status to penicillin; Z91.19 Patient's noncompliance with other medical treatment and regimen
CPT/HCPCS: 36415; 71045; 73590; 73630; 80048; 80053; 80202; 80307; 82962; 83036; 83540; 83550; 83605; 83735; 85025; 85379; 86140; 86703; 87493; 87505; 94760; 96360; G0480; J1650; J1815; J1885; J2270; J2543; J3370; J7030; J7040; J7050; U0003; 99285-25; G0378

== ENCOUNTER 2020-08-24 21:17 | Emergency (ER) | payer MEDICARE, MEDICAID ==
[~2020-08-24] VITALS: Ht 175.3 cm; Wt 52.3 kg
[~2020-08-24 21:17] MED LIST changes: +AMOX1TAB11 PO; +ARIP10TA9 PO
--- NOTE | 2020-08-24 23:00 | PHYS DOC ---
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 He states that around 6:30 PM yesterday he started to have watery bowel movements, he states that he has had 50 bowel movement since that time. He denies any blood in his diarrhea. He states that his diarrhea is not better or worse with food. He states he is also having left lower quadrant pain, he describes this as cramping and constant. He states this pain does not radiate anywhere. He states nothing is making this pain better or worse. He states he has had this type of diarrhea 8 times in the past, and his doctors have recommended him to get a colonoscopy and an EGD. He has not been able to set this up yet. He was recently discharged from a rehab facility on Friday and was supposed to have an apartment on Friday but this was not set up for him. He has been walking from apartment to apartment in the meantime. Denies alcohol use but states most recent methamphetamine use was Friday. Review of Systems: Review of Systems: Constitutional: Denies fever or chills. [] Eyes: Denies change in visual acuity. [] HENT: Denies nasal congestion or sore throat. [] Respiratory: Denies cough or shortness of breath. [] Cardiovascular: Denies chest pain or edema. [] GI: Positive abdominal pain and diarrhea Denies nausea, vomiting, bloody s tools. [] : Denies dysuria. [] Musculoskeletal: Denies back pain or joint pain. [] Integument: Denies rash. [] Neurologic: Denies headache, focal weakness or sensory changes. [] Endocrine: Denies polyuria or polydipsia. [] Lymphatic: Denies swollen glands. [] Psychiatric: Denies depression or anxiety. [] Heart Score: Risk Factors: Risk Factors: DM, Current or recent (<one month) smoker, HTN, HLP, family history of CAD, obesity. Risk Scores: Score 0 - 3: 2.5% MACE over next 6 weeks - Discharge Home Score 4 - 6: 20.3% MACE over next 6 weeks - Admit for Clinical Observation Score 7 - 10: 72.7% MACE over next 6 weeks - Early Invasive Strategies Allergies: Allergies: Allergies Coded Allergies Type Severity Reaction Last Updated Verified Penicillins Allergy Intermediate hives 07/29/20 Yes Physical Exam: PE: Constitutional: Well developed, well nourished, no acute distress, non-toxic appearance. [] HENT: Normocephalic, atraumatic, bilateral external ears normal, oropharynx moist, no oral exudates, nose normal. [] Eyes: PERRLA, EOMI, conjunctiva normal, no discharge. [] Neck: Normal range of motion, no tenderness, supple, no stridor. [] Cardiovascular:Heart rate regular rhythm, no murmur [] Lungs & Thorax: Bilateral breath sounds clear to auscultation [] Abdomen: Bowel sounds normal, soft, no tenderness, no masses, no pulsatile masses. [] Skin: Warm, dry, no erythema, no rash. [] Back: No tenderness, no CVA tenderness. [] Extremities: No tenderness, no cyanosis, no clubbing, ROM intact, no edema. [] Neurologic: Alert and oriented X 3, normal motor function, normal sensory function, no focal deficits noted. [] Psychologic: Affect normal, judgement normal, mood normal. [] EKG: EKG: [] Radiology/Procedures: Radiology/Procedures: [] Course & Med Decision Making: Course & Med Decision Making Pertinent Labs and Imaging studies reviewed. (See chart for details) [] Dragon Disclaimer: Dragon Disclaimer: This electronic medical record was generated, in whole or in part, using a voice recognition dictation system. Departure Departure Impression: Primary Impression: Diarrhea Additional Impression: Homeless Disposition: 01 DC HOME SELF CARE/HOMELESS Condition: STABLE Referrals: NO PCP (PCP) Patient Instructions: Diarrhea SIVA VERA I DO Aug 24, 2020 23:00
[2020-08-24] MEDS ORDERED: IV NORMAL SALINE 1000ML BAG 1,000 ML IV ONE (23:30)
[2020-08-25 00:25] LABS: BASO % 0 % (0-3); EOS # 0.1 x10^3/uL (0.0-0.7); EOS % 1 % (0-3); HEMOGLOBIN 10.7 g/dL (13.0-17.5); LYMPH # 1.3 x10^3/uL (1.0-4.8); LYMPH % 13 % (24-48); MEAN CORPUSCULAR HEMOGLOBIN 25 pg (25-35); MEAN CORPUSCULAR HGB CONC 32 g/dL (31-37); MEAN CORPUSCULAR VOLUME 78 fL (79-100); MONO # 0.4 x10^3/uL (0.0-1.1); MONO % 5 % (0-9); NEUT # 7.9 x10^3/uL (1.8-7.7); NEUT % 82 % (31-73); PLATELET COUNT 374 x10^3/uL (140-400); RED BLOOD COUNT 4.37 x10^6/uL (4.30-5.70); RED CELL DISTRIBUTION WIDTH 16.8 % (11.5-14.5); WHITE BLOOD COUNT 9.7 x10^3/uL (4.0-11.0)
[2020-08-25 00:50] LABS: CALCIUM 8.5 mg/dL (8.5-10.1); CREATININE 0.8 mg/dL (0.7-1.3); GFR 101.9; POTASSIUM 3.9 mmol/L (3.5-5.1)
[2020-08-25 00:55] LABS: ALBUMIN 3.6 g/dL (3.4-5.0); ALBUMIN/GLOBULIN RATIO 0.7 (1.0-1.7); TOTAL BILIRUBIN 0.3 mg/dL (0.2-1.0); TOTAL PROTEIN 8.5 g/dL (6.4-8.2)
[2020-08-25 03:32] VITALS: BP 91/56
== END 2020-08-25 04:30 | disposition home or self-care (01) ==
LOC: ER 21:17
DX: R19.7 Diarrhea, unspecified (principal); R10.32 Left lower quadrant pain; Z59.0 Homelessness; F31.9 Bipolar disorder, unspecified; E10.40 Type 1 diabetes mellitus with diabetic neuropathy, unspecified; F20.9 Schizophrenia, unspecified; F17.200 Nicotine dependence, unspecified, uncomplicated; Z90.49 Acquired absence of other specified parts of digestive tract; Z88.0 Allergy status to penicillin
CPT/HCPCS: 36415; 80053; 83690; 85025; 87177; 87209; 87493; 96360; 99285; J7030